=== PATIENT | male | born 1950 | race Caucasian/White ===

== ENCOUNTER 2017-11-04 22:37 | Inpatient (IN) | payer MEDICARE, OTHER ==
[2017-11-04 23:14] LABS: ADD MAN DIFF? NO
[2017-11-04 23:18] LABS: BASOPHILS % 0.5 % (0.0-2.0); EOSINOPHILS # 0.1 10^3/ul (0.0-0.5); EOSINOPHILS % 1.1 % (0.0-7.0); HEMATOCRIT 41.3 % (42.0-52.0); HEMOGLOBIN 12.3 g/dl (14.0-18.0); LYMPHOCYTES # 1.4 10^3/ul (0.8-2.9); LYMPHOCYTES % 16.5 % (15.0-51.0); MEAN CORPUSCULAR HEMOGLOBIN 26.5 pg (29.0-33.0); MEAN CORPUSCULAR HGB CONC 29.8 g/dl (32.0-37.0); MEAN CORPUSCULAR VOLUME 88.8 fl (82.0-101.0); MONOCYTE # 0.7 10^3/ul (0.3-0.9); MONOCYTES % 8.3 % (0.0-11.0); NEUTROPHIL # 6.1 10^3/ul (1.6-7.5); NEUTROPHILS % 72.9 % (39.0-77.0); PLATELET COUNT 150 10^3/UL (140-415); RED BLOOD COUNT 4.65 10^6/ul (4.70-6.10); RED CELL DISTRIBUTION WIDTH 19.9 % (11.5-14.5)
[2017-11-04 23:18] LABS: WHITE BLOOD COUNT 8.3 10^3/ul (4.8-10.8)
[2017-11-04 23:37] LABS: ANION GAP 17 (8-16); BLOOD UREA NITROGEN 40 mg/dl (7-20); CALCIUM 9.1 mg/dl (8.4-10.2); CARBON DIOXIDE 32 mmol/L (21-31); CHLORIDE 102 mmol/L (97-110); CREATININE 1.52 mg/dl (0.61-1.24); GLUCOSE 173 mg/dl (70-220); SODIUM 147 mmol/L (135-144)
[2017-11-04 23:37] LABS: MAGNESIUM 2.1 mg/dl (1.7-2.5)
[2017-11-04 23:43] LABS: AADO2 Arterial 292.7 mmHg (7.0-24.0); Allen Test ACCEPTAB; Arterial Base Excess 2.6 mmol/L (-3.0-3); Arterial Blood Gas Oxygen Sat 97.5 mmHG (95.0-98.0); Arterial COHb 0.3 % (0.0-3.0); Arterial Fraction of Oxyhgb 96.9 % (93.0-99.0); Arterial HCO3 30.2 mmol/L (22.0-26.0); Arterial MetHb 0.3 % (0.0-1.5); Arterial Total Hemglobin 12.5 g/dl (12.0-18.0); Arterial pCO2 60.6 mmhg (35-45); MODE VENT - AC; Site Right Radial
[2017-11-04 23:50] LABS: TROPONIN-I < 0.012 ng/ml (0.00-0.12)
[2017-11-05] MEDS ORDERED: NACL 0.9% 3 ML SYG IV (03:00)
[2017-11-05] MEDS ORDERED: morphine 2 MG INJ IV (03:00)
[2017-11-05] MEDS ORDERED: ACETAMINOPHEN 650MG/20.3ML CUP GTB (03:00)
[2017-11-05] MEDS: DEXTROSE 5%-0.45% NACL 1,000 ML IV (04:09)
[2017-11-05 05:42] LABS: ADD MAN DIFF? NO
[2017-11-05 06:17] LABS: ALANINE AMINOTRANSFERASE 32 IU/L (13-69); ALBUMIN/GLOBULIN RATIO 0.95; ALKALINE PHOSPHATASE 78 IU/L (42-121); ANION GAP 14 (8-16); ASPARTATE AMINO TRANSFERASE 22 IU/L (15-46); BILIRUBIN,INDIRECT 0.3 mg/dl (0-1.1); BILIRUBIN,TOTAL 0.3 mg/dl (0.2-1.3); BLOOD UREA NITROGEN 38 mg/dl (7-20); CALCIUM 8.5 mg/dl (8.4-10.2); CARBON DIOXIDE 34 mmol/L (21-31); CHLORIDE 104 mmol/L (97-110); CHOL/HDL RATIO 4.6 RATIO; CHOLESTEROL 167 mg/dl (100-200); CREATINE KINASE 60 IU/L (23-200); CREATININE 1.28 mg/dl (0.61-1.24); GLUCOSE 117 mg/dl (70-220); HDL CHOLESTEROL 36 mg/dl (30-78); LDL CHOLESTEROL,CALCULATED 113 mg/dl; MAGNESIUM 2.1 mg/dl (1.7-2.5); POTASSIUM 4.1 mmol/L (3.5-5.1); SODIUM 148 mmol/L (135-144); TOTAL PROTEIN 8.2 g/dl (6.1-8.1); TRIGLYCERIDES 89 mg/dl (0-149)
[2017-11-05 06:29] LABS: CK INDEX 2.6; TROPONIN-I 0.027 ng/ml (0.00-0.12)
[2017-11-05 06:31] LABS: CK-MB 1.57 ng/ml (0.0-2.4)
[2017-11-05 07:00] LABS: HEMOGLOBIN A1C 5.3 % (0-5.9); WHITE BLOOD COUNT 6.6 10^3/ul (4.8-10.8)
[2017-11-05 07:00] LABS: ABNORMAL IP MESSAGE 1; BASOPHILS % 0.3 % (0.0-2.0); EOSINOPHILS % 0.3 % (0.0-7.0); HEMATOCRIT 37.3 % (42.0-52.0); HEMOGLOBIN 10.9 g/dl (14.0-18.0); LYMPHOCYTES # 0.9 10^3/ul (0.8-2.9); LYMPHOCYTES % 13.1 % (15.0-51.0); MEAN CORPUSCULAR HEMOGLOBIN 26.1 pg (29.0-33.0); MEAN CORPUSCULAR HGB CONC 29.2 g/dl (32.0-37.0); MEAN CORPUSCULAR VOLUME 89.4 fl (82.0-101.0); MONOCYTE # 0.5 10^3/ul (0.3-0.9); MONOCYTES % 7.3 % (0.0-11.0); NEUTROPHIL # 5.2 10^3/ul (1.6-7.5); NEUTROPHILS % 78.4 % (39.0-77.0); PLATELET COUNT 143 10^3/UL (140-415); POSITIVE DIFF @See below; RED BLOOD COUNT 4.17 10^6/ul (4.70-6.10); RED CELL DISTRIBUTION WIDTH 19.9 % (11.5-14.5)
[2017-11-05] MEDS: SUCRALFATE (100 MG/ML) 10ML CUP GTB ×4 (07:00→21:18)
[2017-11-05] MEDS: LANSOPRAZOLE 30 MG CAP GTB (07:34)
[2017-11-05] MEDS: FUROSEMIDE 40 MG TAB GTB (07:34)
[2017-11-05] MEDS: SERTRALINE 100 MG TAB GTB (09:41)
[2017-11-05] MEDS: NAPROXEN 500 MG TAB GTB ×2 (09:41→22:51)
[2017-11-05] MEDS: GABAPENTIN 300 MG CAP GTB ×3 (09:41→21:18)
[2017-11-05] MEDS: OLANZAPINE 5 MG TAB GTB (09:41)
[2017-11-05] MEDS: DILTIAZEM (SR) 60 MG CAP PO (09:42)
[2017-11-05] MEDS: ASCORBIC ACID 500 MG TAB GTB (09:42)
[2017-11-05] MEDS: AMIODARONE 200 MG TAB GTB ×2 (09:42→21:19)
[2017-11-05 10:08] LABS: FREE T4 (FREE THYROXINE) 1.63 ng/dl (0.78-2.44); T4 (THYROXINE) 7.7 ug/dl (5.5-11.0)
[2017-11-05] MEDS: ASPIRIN (EC) 81 MG TAB PO (10:24)
[2017-11-05] MEDS: LACTULOSE 30ML CUP GTB ×2 (10:28→21:18)
[2017-11-05] MEDS: ENOXAPARIN 40 MG/0.4 ML SYG SC (10:28)
[2017-11-05] MEDS: BISACODYL (EC) 5 MG TAB PO (10:28)
[2017-11-05 11:19] LABS: CREATINE KINASE 72 IU/L (23-200)
[2017-11-05 11:37] LABS: CK INDEX 2.9; TROPONIN-I 0.015 ng/ml (0.00-0.12)
[2017-11-05 17:22] LABS: ANION GAP 14 (8-16); BLOOD UREA NITROGEN 34 mg/dl (7-20); CALCIUM 8.5 mg/dl (8.4-10.2); CARBON DIOXIDE 33 mmol/L (21-31); CHLORIDE 104 mmol/L (97-110); CREATININE 1.18 mg/dl (0.61-1.24); GLUCOSE 119 mg/dl (70-220); POTASSIUM 4.1 mmol/L (3.5-5.1); SODIUM 147 mmol/L (135-144)
[2017-11-05] MEDS: traMADol 50 MG TAB GTB (21:44)
[2017-11-06 05:49] LABS: ADD MAN DIFF? NO
[2017-11-06 05:54] LABS: WHITE BLOOD COUNT 5.2 10^3/ul (4.8-10.8)
[2017-11-06 05:54] LABS: ABNORMAL IP MESSAGE 1; BASOPHILS % 0.6 % (0.0-2.0); EOSINOPHILS # 0.2 10^3/ul (0.0-0.5); EOSINOPHILS % 3.3 % (0.0-7.0); HEMATOCRIT 37.5 % (42.0-52.0); LYMPHOCYTES # 0.6 10^3/ul (0.8-2.9); MEAN CORPUSCULAR HEMOGLOBIN 26.5 pg (29.0-33.0); MEAN CORPUSCULAR HGB CONC 29.3 g/dl (32.0-37.0); MEAN CORPUSCULAR VOLUME 90.4 fl (82.0-101.0); MONOCYTE # 0.5 10^3/ul (0.3-0.9); MONOCYTES % 8.9 % (0.0-11.0); NEUTROPHIL # 3.9 10^3/ul (1.6-7.5); NEUTROPHILS % 75.8 % (39.0-77.0); PLATELET COUNT 118 10^3/UL (140-415); POSITIVE DIFF @See below; RED BLOOD COUNT 4.15 10^6/ul (4.70-6.10); RED CELL DISTRIBUTION WIDTH 19.8 % (11.5-14.5)
[2017-11-06 06:19] LABS: ANION GAP 14 (8-16); BLOOD UREA NITROGEN 34 mg/dl (7-20); CALCIUM 8.4 mg/dl (8.4-10.2); CARBON DIOXIDE 34 mmol/L (21-31); CHLORIDE 103 mmol/L (97-110); CREATININE 1.16 mg/dl (0.61-1.24); GLUCOSE 110 mg/dl (70-220); MAGNESIUM 2.1 mg/dl (1.7-2.5); PHOSPHORUS 4.4 mg/dl (2.5-4.9); POTASSIUM 3.8 mmol/L (3.5-5.1); SODIUM 147 mmol/L (135-144)
[2017-11-06] MEDS: FUROSEMIDE 40 MG TAB GTB (06:24)
[2017-11-06] MEDS: GABAPENTIN 300 MG CAP GTB ×3 (08:26→21:05)
[2017-11-06] MEDS: ASPIRIN (EC) 81 MG TAB PO (08:27)
[2017-11-06] MEDS: NAPROXEN 500 MG TAB GTB ×2 (08:27→21:07)
[2017-11-06] MEDS: OLANZAPINE 5 MG TAB GTB (08:27)
[2017-11-06] MEDS: LANSOPRAZOLE 30 MG CAP GTB (08:28)
[2017-11-06] MEDS: DILTIAZEM (SR) 60 MG CAP PO (08:28)
[2017-11-06] MEDS: LACTULOSE 30ML CUP GTB ×2 (08:29→21:00)
[2017-11-06] MEDS: BISACODYL (EC) 5 MG TAB PO (08:29)
[2017-11-06] MEDS: SUCRALFATE (100 MG/ML) 10ML CUP GTB ×4 (08:29→21:05)
[2017-11-06] MEDS: ASCORBIC ACID 500 MG TAB GTB (08:29)
[2017-11-06] MEDS: AMIODARONE 200 MG TAB GTB ×2 (08:29→21:06)
[2017-11-06] MEDS: SERTRALINE 100 MG TAB GTB (08:29)
[2017-11-06] MEDS: ENOXAPARIN 40 MG/0.4 ML SYG SC (08:37)
[2017-11-06] MEDS: ALBUTEROL HFA 8 GM INHALER INH ×4 (09:00→20:22)
[2017-11-06] MEDS: IPRATROPIUM (HFA) 12.9 GM INHALER INH ×4 (09:00→20:21)
[2017-11-07] MEDS: IPRATROPIUM (HFA) 12.9 GM INHALER INH ×6 (01:29→20:09)
[2017-11-07] MEDS: ALBUTEROL HFA 8 GM INHALER INH ×6 (01:29→20:09)
[2017-11-07] MEDS: LACTULOSE 30ML CUP GTB ×2 (09:00→21:00)
[2017-11-07] MEDS: BISACODYL (EC) 5 MG TAB PO (09:00)
[2017-11-07] MEDS: SUCRALFATE (100 MG/ML) 10ML CUP GTB ×4 (11:00→21:06)
[2017-11-07] MEDS: LANSOPRAZOLE 30 MG CAP GTB (11:00)
[2017-11-07] MEDS: ASCORBIC ACID 500 MG TAB GTB (11:01)
[2017-11-07] MEDS: GABAPENTIN 300 MG CAP GTB ×3 (11:01→21:04)
[2017-11-07] MEDS: OLANZAPINE 5 MG TAB GTB (11:02)
[2017-11-07] MEDS: DILTIAZEM (SR) 60 MG CAP PO (11:02)
[2017-11-07] MEDS: SERTRALINE 100 MG TAB GTB (11:02)
[2017-11-07] MEDS: AMIODARONE 200 MG TAB GTB ×2 (11:02→21:05)
[2017-11-07] MEDS: ASPIRIN (EC) 81 MG TAB PO (11:03)
[2017-11-07] MEDS: FUROSEMIDE 40 MG TAB GTB ×2 (11:03→11:21)
[2017-11-07] MEDS: NAPROXEN 500 MG TAB GTB ×2 (11:03→21:05)
[2017-11-07] MEDS: ENOXAPARIN 40 MG/0.4 ML SYG SC (11:10)
[2017-11-07] MEDS: NA PHOSPHATE/BIPHOS 133 ML ENEMA PR (11:11)
[2017-11-07] MEDS: NYSTATIN 30 GM POWDER BTL TOP ×2 (11:55→21:04)
[2017-11-07] MEDS: traMADol 50 MG TAB GTB (23:21)
[2017-11-08] MEDS: IPRATROPIUM (HFA) 12.9 GM INHALER INH ×6 (01:18→20:02)
[2017-11-08] MEDS: ALBUTEROL HFA 8 GM INHALER INH ×6 (01:18→20:02)
[2017-11-08] MEDS: SUCRALFATE (100 MG/ML) 10ML CUP GTB ×4 (06:07→21:34)
[2017-11-08] MEDS: FUROSEMIDE 40 MG TAB GTB (06:08)
[2017-11-08] MEDS: LANSOPRAZOLE 30 MG CAP GTB (06:08)
[2017-11-08] MEDS: LACTULOSE 30ML CUP GTB ×2 (09:00→21:00)
[2017-11-08] MEDS: BISACODYL (EC) 5 MG TAB PO (09:00)
[2017-11-08] MEDS: ENOXAPARIN 40 MG/0.4 ML SYG SC (09:00)
[2017-11-08] MEDS: SERTRALINE 100 MG TAB GTB (09:15)
[2017-11-08] MEDS: GABAPENTIN 300 MG CAP GTB ×3 (09:15→21:35)
[2017-11-08] MEDS: ASCORBIC ACID 500 MG TAB GTB (09:16)
[2017-11-08] MEDS: NAPROXEN 500 MG TAB GTB ×2 (09:16→21:35)
[2017-11-08] MEDS: ASPIRIN (EC) 81 MG TAB PO (09:16)
[2017-11-08] MEDS: AMIODARONE 200 MG TAB GTB ×2 (09:16→21:36)
[2017-11-08] MEDS: OLANZAPINE 5 MG TAB GTB (09:16)
[2017-11-08] MEDS: DILTIAZEM (SR) 60 MG CAP PO (09:16)
[2017-11-08] MEDS: NYSTATIN 30 GM POWDER BTL TOP ×2 (09:17→21:38)
[2017-11-08] MEDS: LORAZEPAM 2 MG INJ IV (21:35)
[2017-11-09] MEDS: IPRATROPIUM (HFA) 12.9 GM INHALER INH ×6 (01:34→20:45)
[2017-11-09] MEDS: ALBUTEROL HFA 8 GM INHALER INH ×6 (01:35→20:44)
[2017-11-09 05:54] LABS: ADD MAN DIFF? NO
[2017-11-09 06:11] LABS: ABNORMAL IP MESSAGE 1; BASOPHILS % 0.2 % (0.0-2.0); EOSINOPHILS # 0.2 10^3/ul (0.0-0.5); EOSINOPHILS % 1.7 % (0.0-7.0); HEMATOCRIT 37.5 % (42.0-52.0); HEMOGLOBIN 11.1 g/dl (14.0-18.0); LYMPHOCYTES # 0.5 10^3/ul (0.8-2.9); LYMPHOCYTES % 5.3 % (15.0-51.0); MEAN CORPUSCULAR HGB CONC 29.6 g/dl (32.0-37.0); MEAN CORPUSCULAR VOLUME 91.2 fl (82.0-101.0); MONOCYTE # 0.6 10^3/ul (0.3-0.9); MONOCYTES % 6.5 % (0.0-11.0); NEUTROPHIL # 7.5 10^3/ul (1.6-7.5); NEUTROPHILS % 86.1 % (39.0-77.0); PLATELET COUNT 114 10^3/UL (140-415); POSITIVE DIFF @See below; RED BLOOD COUNT 4.11 10^6/ul (4.70-6.10); RED CELL DISTRIBUTION WIDTH 19.4 % (11.5-14.5)
[2017-11-09 06:11] LABS: WHITE BLOOD COUNT 8.7 10^3/ul (4.8-10.8)
[2017-11-09] MEDS: LANSOPRAZOLE 30 MG CAP GTB (06:22)
[2017-11-09] MEDS: SUCRALFATE (100 MG/ML) 10ML CUP GTB ×4 (06:22→20:19)
[2017-11-09] MEDS: FUROSEMIDE 40 MG TAB GTB (06:22)
[2017-11-09 06:26] LABS: ANION GAP 13 (8-16); BLOOD UREA NITROGEN 33 mg/dl (7-20); CALCIUM 8.5 mg/dl (8.4-10.2); CARBON DIOXIDE 37 mmol/L (21-31); CHLORIDE 102 mmol/L (97-110); CREATININE 1.19 mg/dl (0.61-1.24); GLUCOSE 142 mg/dl (70-220); SODIUM 148 mmol/L (135-144)
[2017-11-09] MEDS: traMADol 50 MG TAB GTB (06:29)
[2017-11-09] MEDS: ENOXAPARIN 40 MG/0.4 ML SYG SC (09:00)
[2017-11-09] MEDS: LACTULOSE 30ML CUP GTB ×2 (09:00→20:21)
[2017-11-09] MEDS: BISACODYL (EC) 5 MG TAB PO (09:00)
[2017-11-09] MEDS: AMIODARONE 200 MG TAB GTB ×2 (09:12→20:18)
[2017-11-09] MEDS: NAPROXEN 500 MG TAB GTB ×2 (09:12→20:17)
[2017-11-09] MEDS: ASCORBIC ACID 500 MG TAB GTB (09:13)
[2017-11-09] MEDS: GABAPENTIN 300 MG CAP GTB ×3 (09:13→20:17)
[2017-11-09] MEDS: ASPIRIN (EC) 81 MG TAB PO (09:13)
[2017-11-09] MEDS: DILTIAZEM (SR) 60 MG CAP PO (09:13)
[2017-11-09] MEDS: SERTRALINE 100 MG TAB GTB (09:13)
[2017-11-09] MEDS: OLANZAPINE 5 MG TAB GTB (09:13)
[2017-11-09] MEDS: NYSTATIN 30 GM POWDER BTL TOP ×2 (09:14→20:17)
[2017-11-09] MEDS: NA PHOSPHATE/BIPHOS 133 ML ENEMA PR (13:23)
[2017-11-10] MEDS: traMADol 50 MG TAB GTB ×2 (00:07→18:28)
[2017-11-10] MEDS: ALBUTEROL HFA 8 GM INHALER INH ×6 (00:22→19:50)
[2017-11-10] MEDS: IPRATROPIUM (HFA) 12.9 GM INHALER INH ×6 (00:23→19:51)
[2017-11-10] MEDS: FUROSEMIDE 40 MG TAB GTB (06:11)
[2017-11-10] MEDS: SUCRALFATE (100 MG/ML) 10ML CUP GTB ×4 (06:11→21:36)
[2017-11-10] MEDS: LANSOPRAZOLE 30 MG CAP GTB (06:12)
[2017-11-10] MEDS: ENOXAPARIN 40 MG/0.4 ML SYG SC (09:00)
[2017-11-10] MEDS: LACTULOSE 30ML CUP GTB ×2 (09:00→21:00)
[2017-11-10] MEDS: BISACODYL (EC) 5 MG TAB PO (09:00)
[2017-11-10] MEDS: NAPROXEN 500 MG TAB GTB ×2 (09:20→21:35)
[2017-11-10] MEDS: OLANZAPINE 5 MG TAB GTB (09:20)
[2017-11-10] MEDS: ASCORBIC ACID 500 MG TAB GTB (09:20)
[2017-11-10] MEDS: DILTIAZEM (SR) 60 MG CAP PO (09:21)
[2017-11-10] MEDS: SERTRALINE 100 MG TAB GTB (09:21)
[2017-11-10] MEDS: ASPIRIN (EC) 81 MG TAB PO (09:21)
[2017-11-10] MEDS: AMIODARONE 200 MG TAB GTB ×2 (09:21→21:40)
[2017-11-10] MEDS: GABAPENTIN 300 MG CAP GTB ×3 (09:21→21:35)
[2017-11-10] MEDS: NYSTATIN 30 GM POWDER BTL TOP ×2 (09:22→21:41)
[2017-11-10 12:12] LABS: ADD MAN DIFF? NO
[2017-11-10 12:21] LABS: WHITE BLOOD COUNT 5.3 10^3/ul (4.8-10.8)
[2017-11-10 12:21] LABS: ABNORMAL IP MESSAGE 1; BASOPHILS % 0.6 % (0.0-2.0); EOSINOPHILS # 0.2 10^3/ul (0.0-0.5); EOSINOPHILS % 3.4 % (0.0-7.0); HEMATOCRIT 41.5 % (42.0-52.0); HEMOGLOBIN 12.1 g/dl (14.0-18.0); LYMPHOCYTES # 0.6 10^3/ul (0.8-2.9); LYMPHOCYTES % 11.7 % (15.0-51.0); MEAN CORPUSCULAR HEMOGLOBIN 27.1 pg (29.0-33.0); MEAN CORPUSCULAR HGB CONC 29.2 g/dl (32.0-37.0); MONOCYTE # 0.4 10^3/ul (0.3-0.9); MONOCYTES % 6.6 % (0.0-11.0); NEUTROPHIL # 4.1 10^3/ul (1.6-7.5); NEUTROPHILS % 77.1 % (39.0-77.0); PLATELET COUNT 120 10^3/UL (140-415); POSITIVE DIFF @See below; RED BLOOD COUNT 4.46 10^6/ul (4.70-6.10); RED CELL DISTRIBUTION WIDTH 19.3 % (11.5-14.5)
[2017-11-10 12:39] LABS: ALANINE AMINOTRANSFERASE 24 IU/L (13-69); ALBUMIN 3.8 g/dl (3.3-4.9); ALBUMIN/GLOBULIN RATIO 0.74; ALKALINE PHOSPHATASE 92 IU/L (42-121); ASPARTATE AMINO TRANSFERASE 38 IU/L (15-46); BILIRUBIN,INDIRECT 0.6 mg/dl (0-1.1); BILIRUBIN,TOTAL 0.6 mg/dl (0.2-1.3); BLOOD UREA NITROGEN 32 mg/dl (7-20); CALCIUM 8.5 mg/dl (8.4-10.2); CARBON DIOXIDE 30 mmol/L (21-31); GLUCOSE 146 mg/dl (70-220); TOTAL PROTEIN 8.9 g/dl (6.1-8.1)
[2017-11-10 13:28] LABS: ANION GAP 24 (8-16)
[2017-11-10 13:29] LABS: CHLORIDE 99 mmol/L (97-110); POTASSIUM 3.8 mmol/L (3.5-5.1); SODIUM 149 mmol/L (135-144)
[2017-11-11] MEDS: ALBUTEROL HFA 8 GM INHALER INH ×6 (00:32→21:03)
[2017-11-11] MEDS: IPRATROPIUM (HFA) 12.9 GM INHALER INH ×6 (00:32→21:03)
[2017-11-11 05:19] LABS: ADD MAN DIFF? NO
[2017-11-11 05:23] LABS: BASOPHILS % 0.5 % (0.0-2.0); EOSINOPHILS # 0.2 10^3/ul (0.0-0.5); EOSINOPHILS % 2.9 % (0.0-7.0); HEMATOCRIT 38.6 % (42.0-52.0); HEMOGLOBIN 11.3 g/dl (14.0-18.0); LYMPHOCYTES # 0.9 10^3/ul (0.8-2.9); LYMPHOCYTES % 12.9 % (15.0-51.0); MEAN CORPUSCULAR HGB CONC 29.3 g/dl (32.0-37.0); MEAN CORPUSCULAR VOLUME 92.3 fl (82.0-101.0); MONOCYTE # 0.5 10^3/ul (0.3-0.9); MONOCYTES % 7.7 % (0.0-11.0); NEUTROPHILS % 75.7 % (39.0-77.0); PLATELET COUNT 118 10^3/UL (140-415); RED BLOOD COUNT 4.18 10^6/ul (4.70-6.10); RED CELL DISTRIBUTION WIDTH 19.2 % (11.5-14.5)
[2017-11-11 05:23] LABS: WHITE BLOOD COUNT 6.6 10^3/ul (4.8-10.8)
[2017-11-11 06:00] LABS: ANION GAP 14 (8-16); BLOOD UREA NITROGEN 35 mg/dl (7-20); CALCIUM 8.6 mg/dl (8.4-10.2); CARBON DIOXIDE 37 mmol/L (21-31); CHLORIDE 101 mmol/L (97-110); CREATININE 1.11 mg/dl (0.61-1.24); GLUCOSE 118 mg/dl (70-220); POTASSIUM 4.1 mmol/L (3.5-5.1); SODIUM 148 mmol/L (135-144)
[2017-11-11] MEDS: FUROSEMIDE 40 MG TAB GTB (06:45)
[2017-11-11] MEDS: LANSOPRAZOLE 30 MG CAP GTB (08:09)
[2017-11-11] MEDS: SUCRALFATE (100 MG/ML) 10ML CUP GTB ×4 (08:09→20:33)
[2017-11-11] MEDS: LACTULOSE 30ML CUP GTB ×2 (09:00→20:36)
[2017-11-11] MEDS: BISACODYL (EC) 5 MG TAB PO (09:00)
[2017-11-11] MEDS: OLANZAPINE 5 MG TAB GTB (09:07)
[2017-11-11] MEDS: ASCORBIC ACID 500 MG TAB GTB (09:07)
[2017-11-11] MEDS: NAPROXEN 500 MG TAB GTB ×2 (09:07→20:30)
[2017-11-11] MEDS: ASPIRIN (EC) 81 MG TAB PO (09:07)
[2017-11-11] MEDS: AMIODARONE 200 MG TAB GTB ×2 (09:08→20:33)
[2017-11-11] MEDS: SERTRALINE 100 MG TAB GTB (09:08)
[2017-11-11] MEDS: DILTIAZEM (SR) 60 MG CAP PO (09:09)
[2017-11-11] MEDS: NYSTATIN 30 GM POWDER BTL TOP (09:11)
[2017-11-11] MEDS: GABAPENTIN 300 MG CAP GTB ×3 (09:12→20:29)
[2017-11-11] MEDS: ENOXAPARIN 40 MG/0.4 ML SYG SC (09:13)
[2017-11-11] MEDS: DEXTROSE 5% 1,000 ML IV (09:30)
[2017-11-12] MEDS: LORAZEPAM 1 MG TAB PO (00:12)
[2017-11-12] MEDS: IPRATROPIUM (HFA) 12.9 GM INHALER INH ×6 (01:03→20:29)
[2017-11-12] MEDS: ALBUTEROL HFA 8 GM INHALER INH ×6 (01:04→20:29)
[2017-11-12] MEDS: traMADol 50 MG TAB GTB (05:41)
[2017-11-12] MEDS: NYSTATIN 30 GM POWDER BTL TOP ×3 (06:45→22:22)
[2017-11-12] MEDS: FUROSEMIDE 40 MG TAB GTB (06:46)
[2017-11-12 08:26] LABS: ADD MAN DIFF? NO
[2017-11-12] MEDS: ASPIRIN (EC) 81 MG TAB PO (08:32)
[2017-11-12] MEDS: SUCRALFATE (100 MG/ML) 10ML CUP GTB ×4 (08:32→22:13)
[2017-11-12] MEDS: SERTRALINE 100 MG TAB GTB (08:32)
[2017-11-12] MEDS: NAPROXEN 500 MG TAB GTB ×2 (08:32→22:14)
[2017-11-12 08:34] LABS: WHITE BLOOD COUNT 3.5 10^3/ul (4.8-10.8)
[2017-11-12 08:34] LABS: ABNORMAL IP MESSAGE 1; BASOPHILS % 0.6 % (0.0-2.0); EOSINOPHILS # 0.2 10^3/ul (0.0-0.5); EOSINOPHILS % 4.6 % (0.0-7.0); HEMATOCRIT 35.3 % (42.0-52.0); HEMOGLOBIN 10.3 g/dl (14.0-18.0); LYMPHOCYTES # 0.4 10^3/ul (0.8-2.9); LYMPHOCYTES % 12.3 % (15.0-51.0); MEAN CORPUSCULAR HEMOGLOBIN 26.7 pg (29.0-33.0); MEAN CORPUSCULAR HGB CONC 29.2 g/dl (32.0-37.0); MEAN CORPUSCULAR VOLUME 91.5 fl (82.0-101.0); MONOCYTE # 0.3 10^3/ul (0.3-0.9); MONOCYTES % 8.6 % (0.0-11.0); NEUTROPHIL # 2.6 10^3/ul (1.6-7.5); NEUTROPHILS % 73.6 % (39.0-77.0); PLATELET COUNT 115 10^3/UL (140-415); POSITIVE DIFF @See below; RED BLOOD COUNT 3.86 10^6/ul (4.70-6.10)
[2017-11-12] MEDS: AMIODARONE 200 MG TAB GTB ×2 (08:34→22:17)
[2017-11-12] MEDS: GABAPENTIN 300 MG CAP GTB ×3 (08:43→22:14)
[2017-11-12] MEDS: LANSOPRAZOLE 30 MG CAP GTB (08:43)
[2017-11-12] MEDS: DILTIAZEM (SR) 60 MG CAP PO (08:44)
[2017-11-12] MEDS: OLANZAPINE 5 MG TAB GTB (08:45)
[2017-11-12] MEDS: ASCORBIC ACID 500 MG TAB GTB (08:45)
[2017-11-12 08:49] LABS: ANION GAP 11 (8-16); BLOOD UREA NITROGEN 33 mg/dl (7-20); CALCIUM 8.4 mg/dl (8.4-10.2); CHLORIDE 100 mmol/L (97-110); CREATININE 1.21 mg/dl (0.61-1.24); GLUCOSE 131 mg/dl (70-220); POTASSIUM 3.8 mmol/L (3.5-5.1); SODIUM 147 mmol/L (135-144)
[2017-11-12 08:58] LABS: CARBON DIOXIDE 40 mmol/L (21-31)
[2017-11-12] MEDS: ENOXAPARIN 40 MG/0.4 ML SYG SC (08:59)
[2017-11-12] MEDS: LACTULOSE 30ML CUP GTB ×2 (09:00→21:00)
[2017-11-12] MEDS: BISACODYL (EC) 5 MG TAB PO (09:00)
[2017-11-13] MEDS: LORAZEPAM 1 MG TAB PO ×2 (00:41→22:08)
[2017-11-13] MEDS: IPRATROPIUM (HFA) 12.9 GM INHALER INH ×6 (01:32→20:41)
[2017-11-13] MEDS: ALBUTEROL HFA 8 GM INHALER INH ×6 (01:33→20:42)
[2017-11-13 06:14] LABS: ADD MAN DIFF? NO
[2017-11-13 06:25] LABS: ABNORMAL IP MESSAGE 1; BASOPHILS % 0.8 % (0.0-2.0); EOSINOPHILS # 0.2 10^3/ul (0.0-0.5); EOSINOPHILS % 4.5 % (0.0-7.0); HEMATOCRIT 34.9 % (42.0-52.0); HEMOGLOBIN 10.2 g/dl (14.0-18.0); LYMPHOCYTES # 0.7 10^3/ul (0.8-2.9); LYMPHOCYTES % 17.1 % (15.0-51.0); MEAN CORPUSCULAR HEMOGLOBIN 26.8 pg (29.0-33.0); MEAN CORPUSCULAR HGB CONC 29.2 g/dl (32.0-37.0); MEAN CORPUSCULAR VOLUME 91.6 fl (82.0-101.0); MONOCYTE # 0.4 10^3/ul (0.3-0.9); MONOCYTES % 9.3 % (0.0-11.0); NEUTROPHIL # 2.7 10^3/ul (1.6-7.5); PLATELET COUNT 117 10^3/UL (140-415); POSITIVE DIFF @See below; RED BLOOD COUNT 3.81 10^6/ul (4.70-6.10); RED CELL DISTRIBUTION WIDTH 19.2 % (11.5-14.5)
[2017-11-13] MEDS: LANSOPRAZOLE 30 MG CAP GTB (06:25)
[2017-11-13] MEDS: SUCRALFATE (100 MG/ML) 10ML CUP GTB ×5 (06:25→20:10)
[2017-11-13] MEDS: FUROSEMIDE 40 MG TAB GTB (06:25)
[2017-11-13 06:46] LABS: ANION GAP 12 (8-16); BLOOD UREA NITROGEN 34 mg/dl (7-20); CALCIUM 8.3 mg/dl (8.4-10.2); CARBON DIOXIDE 39 mmol/L (21-31); CHLORIDE 100 mmol/L (97-110); CREATININE 1.13 mg/dl (0.61-1.24); GLUCOSE 118 mg/dl (70-220); POTASSIUM 3.6 mmol/L (3.5-5.1); SODIUM 147 mmol/L (135-144)
[2017-11-13] MEDS: NYSTATIN 30 GM POWDER BTL TOP ×2 (08:49→22:05)
[2017-11-13] MEDS: OLANZAPINE 5 MG TAB GTB (08:52)
[2017-11-13] MEDS: GABAPENTIN 300 MG CAP GTB ×3 (08:53→20:10)
[2017-11-13] MEDS: AMIODARONE 200 MG TAB GTB ×2 (08:53→20:11)
[2017-11-13] MEDS: ASPIRIN (EC) 81 MG TAB PO (08:53)
[2017-11-13] MEDS: NAPROXEN 500 MG TAB GTB ×2 (08:53→20:10)
[2017-11-13] MEDS: DILTIAZEM (SR) 60 MG CAP PO (08:53)
[2017-11-13] MEDS: ASCORBIC ACID 500 MG TAB GTB (08:54)
[2017-11-13] MEDS: LACTULOSE 30ML CUP GTB ×2 (08:55→20:11)
[2017-11-13] MEDS: BISACODYL (EC) 5 MG TAB PO (08:56)
[2017-11-13] MEDS: ENOXAPARIN 40 MG/0.4 ML SYG SC (09:02)
[2017-11-13] MEDS: SERTRALINE 100 MG TAB GTB (12:08)
[2017-11-13] MEDS: NA PHOSPHATE/BIPHOS 133 ML ENEMA PR (13:27)
[2017-11-14] MEDS: IPRATROPIUM (HFA) 12.9 GM INHALER INH ×6 (01:43→20:01)
[2017-11-14] MEDS: ALBUTEROL HFA 8 GM INHALER INH ×6 (01:43→20:01)
[2017-11-14] MEDS: FUROSEMIDE 40 MG TAB GTB (05:38)
[2017-11-14] MEDS: SUCRALFATE (100 MG/ML) 10ML CUP GTB ×5 (06:40→21:00)
[2017-11-14] MEDS: LANSOPRAZOLE 30 MG CAP GTB (06:40)
[2017-11-14 07:19] LABS: ADD MAN DIFF? NO
[2017-11-14 07:23] LABS: ABNORMAL IP MESSAGE 1; BASOPHILS % 0.5 % (0.0-2.0); EOSINOPHILS # 0.2 10^3/ul (0.0-0.5); EOSINOPHILS % 3.5 % (0.0-7.0); HEMATOCRIT 35.5 % (42.0-52.0); HEMOGLOBIN 10.4 g/dl (14.0-18.0); LYMPHOCYTES # 0.6 10^3/ul (0.8-2.9); LYMPHOCYTES % 13.5 % (15.0-51.0); MEAN CORPUSCULAR HEMOGLOBIN 26.9 pg (29.0-33.0); MEAN CORPUSCULAR HGB CONC 29.3 g/dl (32.0-37.0); MONOCYTE # 0.3 10^3/ul (0.3-0.9); MONOCYTES % 7.5 % (0.0-11.0); NEUTROPHIL # 3.2 10^3/ul (1.6-7.5); NEUTROPHILS % 74.5 % (39.0-77.0); PLATELET COUNT 111 10^3/UL (140-415); POSITIVE DIFF @See below; RED BLOOD COUNT 3.86 10^6/ul (4.70-6.10); RED CELL DISTRIBUTION WIDTH 19.4 % (11.5-14.5)
[2017-11-14 07:23] LABS: WHITE BLOOD COUNT 4.3 10^3/ul (4.8-10.8)
[2017-11-14] MEDS: BISACODYL (EC) 5 MG TAB PO (08:07)
[2017-11-14] MEDS: LACTULOSE 30ML CUP GTB ×2 (08:07→21:00)
[2017-11-14 08:15] LABS: ANION GAP 14 (8-16); BLOOD UREA NITROGEN 34 mg/dl (7-20); CALCIUM 8.4 mg/dl (8.4-10.2); CARBON DIOXIDE 36 mmol/L (21-31); CHLORIDE 101 mmol/L (97-110); CREATININE 1.09 mg/dl (0.61-1.24); GLUCOSE 122 mg/dl (70-220); POTASSIUM 3.8 mmol/L (3.5-5.1); SODIUM 147 mmol/L (135-144)
[2017-11-14] MEDS: SERTRALINE 100 MG TAB GTB (08:55)
[2017-11-14] MEDS: ASCORBIC ACID 500 MG TAB GTB (08:55)
[2017-11-14] MEDS: OLANZAPINE 5 MG TAB GTB (08:55)
[2017-11-14] MEDS: GABAPENTIN 300 MG CAP GTB ×3 (08:56→21:22)
[2017-11-14] MEDS: DILTIAZEM (SR) 60 MG CAP PO (08:56)
[2017-11-14] MEDS: ASPIRIN (EC) 81 MG TAB PO (08:56)
[2017-11-14] MEDS: NYSTATIN 30 GM POWDER BTL TOP ×2 (08:56→21:23)
[2017-11-14] MEDS: NAPROXEN 500 MG TAB GTB ×2 (08:56→21:23)
[2017-11-14] MEDS: AMIODARONE 200 MG TAB GTB ×2 (08:57→21:22)
[2017-11-14] MEDS: ENOXAPARIN 40 MG/0.4 ML SYG SC (08:58)
[2017-11-15] MEDS: LORAZEPAM 1 MG TAB PO (00:37)
[2017-11-15] MEDS: IPRATROPIUM (HFA) 12.9 GM INHALER INH ×6 (01:05→20:47)
[2017-11-15] MEDS: ALBUTEROL HFA 8 GM INHALER INH ×6 (01:05→20:47)
[2017-11-15] MEDS: FUROSEMIDE 40 MG TAB GTB (05:38)
[2017-11-15] MEDS: SUCRALFATE (100 MG/ML) 10ML CUP GTB ×4 (08:12→20:38)
[2017-11-15] MEDS: LANSOPRAZOLE 30 MG CAP GTB (08:12)
[2017-11-15] MEDS: LACTULOSE 30ML CUP GTB ×2 (09:00→20:38)
[2017-11-15] MEDS: BISACODYL (EC) 5 MG TAB PO (09:00)
[2017-11-15] MEDS: ENOXAPARIN 40 MG/0.4 ML SYG SC ×2 (09:00→17:37)
[2017-11-15] MEDS: NA PHOSPHATE/BIPHOS 133 ML ENEMA PR (09:37)
[2017-11-15] MEDS: DILTIAZEM (SR) 60 MG CAP PO (10:08)
[2017-11-15] MEDS: ASPIRIN (EC) 81 MG TAB PO (10:08)
[2017-11-15] MEDS: AMIODARONE 200 MG TAB GTB ×2 (10:09→20:43)
[2017-11-15] MEDS: ASCORBIC ACID 500 MG TAB GTB (10:09)
[2017-11-15] MEDS: SERTRALINE 100 MG TAB GTB (10:09)
[2017-11-15] MEDS: NAPROXEN 500 MG TAB GTB ×2 (10:09→20:38)
[2017-11-15] MEDS: NYSTATIN 30 GM POWDER BTL TOP ×2 (10:23→20:52)
[2017-11-15] MEDS: GABAPENTIN 300 MG CAP GTB ×3 (10:28→20:38)
[2017-11-15] MEDS: OLANZAPINE 5 MG TAB GTB (10:32)
[2017-11-15] MEDS: traMADol 50 MG TAB GTB (14:18)
[2017-11-15] MEDS: DILTIAZEM (CD) 120 MG CAP PO (14:19)
[2017-11-15 15:56] LABS: ADD MAN DIFF? NO
[2017-11-15 15:59] LABS: ABNORMAL IP MESSAGE 1; BASOPHILS % 0.6 % (0.0-2.0); EOSINOPHILS # 0.2 10^3/ul (0.0-0.5); EOSINOPHILS % 3.1 % (0.0-7.0); HEMATOCRIT 38.4 % (42.0-52.0); HEMOGLOBIN 11.3 g/dl (14.0-18.0); LYMPHOCYTES # 0.6 10^3/ul (0.8-2.9); LYMPHOCYTES % 13.1 % (15.0-51.0); MEAN CORPUSCULAR HEMOGLOBIN 27.1 pg (29.0-33.0); MEAN CORPUSCULAR HGB CONC 29.4 g/dl (32.0-37.0); MEAN CORPUSCULAR VOLUME 92.1 fl (82.0-101.0); MEAN PLATELET VOLUME 12.8 fl (7.4-10.4); MONOCYTE # 0.4 10^3/ul (0.3-0.9); MONOCYTES % 7.2 % (0.0-11.0); NEUTROPHIL # 3.7 10^3/ul (1.6-7.5); NEUTROPHILS % 75.4 % (39.0-77.0); PLATELET COUNT 125 10^3/UL (140-415); POSITIVE DIFF @See below; RED BLOOD COUNT 4.17 10^6/ul (4.70-6.10); RED CELL DISTRIBUTION WIDTH 19.2 % (11.5-14.5)
[2017-11-15 15:59] LABS: WHITE BLOOD COUNT 4.9 10^3/ul (4.8-10.8)
[2017-11-15] MEDS: ACETAMINOPHEN 325 MG TAB PO (16:00)
[2017-11-15 16:28] LABS: ANION GAP 15 (8-16); BLOOD UREA NITROGEN 33 mg/dl (7-20); CALCIUM 8.7 mg/dl (8.4-10.2); CARBON DIOXIDE 36 mmol/L (21-31); CHLORIDE 101 mmol/L (97-110); CREATININE 1.21 mg/dl (0.61-1.24); GLUCOSE 132 mg/dl (70-220); POTASSIUM 4.2 mmol/L (3.5-5.1); SODIUM 148 mmol/L (135-144)
[2017-11-15] MEDS: traMADol 50 MG TAB PO (18:13)
[2017-11-16] MEDS: ALBUTEROL HFA 8 GM INHALER INH ×7 (01:03→21:43)
[2017-11-16] MEDS: IPRATROPIUM (HFA) 12.9 GM INHALER INH ×7 (01:03→21:43)
[2017-11-16] MEDS: FUROSEMIDE 40 MG TAB GTB (05:11)
[2017-11-16] MEDS: ACETAMINOPHEN 325 MG TAB PO ×2 (05:11→21:13)
[2017-11-16 06:07] LABS: ADD MAN DIFF? NO
[2017-11-16 06:52] LABS: ANION GAP 14 (8-16); BLOOD UREA NITROGEN 36 mg/dl (7-20); CALCIUM 8.4 mg/dl (8.4-10.2); CARBON DIOXIDE 31 mmol/L (21-31); CHLORIDE 104 mmol/L (97-110); GLUCOSE 128 mg/dl (70-220); SODIUM 145 mmol/L (135-144)
[2017-11-16 07:13] LABS: ABNORMAL IP MESSAGE 1; BASOPHILS % 0.8 % (0.0-2.0); EOSINOPHILS # 0.2 10^3/ul (0.0-0.5); EOSINOPHILS % 4.9 % (0.0-7.0); HEMOGLOBIN 10.4 g/dl (14.0-18.0); LYMPHOCYTES # 0.7 10^3/ul (0.8-2.9); LYMPHOCYTES % 18.8 % (15.0-51.0); MEAN CORPUSCULAR HEMOGLOBIN 26.7 pg (29.0-33.0); MEAN CORPUSCULAR HGB CONC 28.9 g/dl (32.0-37.0); MEAN CORPUSCULAR VOLUME 92.5 fl (82.0-101.0); MONOCYTE # 0.4 10^3/ul (0.3-0.9); MONOCYTES % 10.6 % (0.0-11.0); NEUTROPHIL # 2.4 10^3/ul (1.6-7.5); NEUTROPHILS % 64.1 % (39.0-77.0); PLATELET COUNT 104 10^3/UL (140-415); POSITIVE DIFF @See below; RED BLOOD COUNT 3.89 10^6/ul (4.70-6.10); RED CELL DISTRIBUTION WIDTH 19.2 % (11.5-14.5)
[2017-11-16 07:13] LABS: WHITE BLOOD COUNT 3.7 10^3/ul (4.8-10.8)
[2017-11-16] MEDS: SUCRALFATE (100 MG/ML) 10ML CUP GTB ×4 (07:25→21:16)
[2017-11-16] MEDS: GABAPENTIN 300 MG CAP GTB ×3 (08:48→21:16)
[2017-11-16] MEDS: DILTIAZEM (CD) 120 MG CAP PO (08:48)
[2017-11-16] MEDS: ASCORBIC ACID 500 MG TAB GTB (08:48)
[2017-11-16] MEDS: AMIODARONE 200 MG TAB GTB ×2 (08:49→21:16)
[2017-11-16] MEDS: NAPROXEN 500 MG TAB GTB ×2 (08:49→21:16)
[2017-11-16] MEDS: LANSOPRAZOLE 30 MG CAP GTB (08:49)
[2017-11-16] MEDS: ASPIRIN (EC) 81 MG TAB PO (08:49)
[2017-11-16] MEDS: OLANZAPINE 5 MG TAB GTB (08:49)
[2017-11-16] MEDS: SERTRALINE 100 MG TAB GTB (08:49)
[2017-11-16] MEDS: ENOXAPARIN 40 MG/0.4 ML SYG SC (08:56)
[2017-11-16] MEDS: LACTULOSE 30ML CUP GTB ×2 (08:58→21:00)
[2017-11-16] MEDS: BISACODYL (EC) 5 MG TAB PO (08:59)
[2017-11-16] MEDS: NYSTATIN 30 GM POWDER BTL TOP ×2 (09:12→21:16)
[2017-11-16] MEDS: traMADol 50 MG TAB GTB (10:02)
[2017-11-16] MEDS: DIPHENHYDRAMINE 25 MG CAP PO (16:11)
[2017-11-16] MEDS: LORAZEPAM 1 MG TAB PO (23:32)
[2017-11-17] MEDS: IPRATROPIUM (HFA) 12.9 GM INHALER INH ×6 (01:35→21:13)
[2017-11-17] MEDS: ALBUTEROL HFA 8 GM INHALER INH ×6 (01:35→21:13)
[2017-11-17] MEDS: FUROSEMIDE 40 MG TAB GTB (06:13)
[2017-11-17] MEDS: traMADol 50 MG TAB GTB ×2 (06:35→21:58)
[2017-11-17] MEDS: SUCRALFATE (100 MG/ML) 10ML CUP GTB ×4 (06:40→21:00)
[2017-11-17] MEDS: LANSOPRAZOLE 30 MG CAP GTB (06:40)
[2017-11-17] MEDS: SERTRALINE 100 MG TAB GTB (09:00)
[2017-11-17] MEDS: BISACODYL (EC) 5 MG TAB PO (09:00)
[2017-11-17] MEDS: DILTIAZEM (CD) 120 MG CAP PO (09:00)
[2017-11-17] MEDS: OLANZAPINE 5 MG TAB GTB (09:00)
[2017-11-17] MEDS: LACTULOSE 30ML CUP GTB ×2 (09:00→21:00)
[2017-11-17] MEDS: NAPROXEN 500 MG TAB GTB ×2 (09:00→21:56)
[2017-11-17] MEDS: ASCORBIC ACID 500 MG TAB GTB (09:01)
[2017-11-17] MEDS: AMIODARONE 200 MG TAB GTB ×2 (09:01→21:57)
[2017-11-17] MEDS: GABAPENTIN 300 MG CAP GTB ×3 (09:01→21:57)
[2017-11-17] MEDS: ASPIRIN (EC) 81 MG TAB PO (09:02)
[2017-11-17] MEDS: ENOXAPARIN 40 MG/0.4 ML SYG SC (09:02)
[2017-11-17] MEDS: NYSTATIN 30 GM POWDER BTL TOP ×2 (09:02→21:57)
[2017-11-17] MEDS: NA PHOSPHATE/BIPHOS 133 ML ENEMA PR (15:57)
[2017-11-18] MEDS: LORAZEPAM 1 MG TAB PO (01:05)
[2017-11-18] MEDS: ALBUTEROL HFA 8 GM INHALER INH ×6 (01:23→20:40)
[2017-11-18] MEDS: IPRATROPIUM (HFA) 12.9 GM INHALER INH ×6 (01:23→20:40)
[2017-11-18] MEDS: FUROSEMIDE 40 MG TAB GTB (06:37)
[2017-11-18] MEDS: LANSOPRAZOLE 30 MG CAP GTB (07:25)
[2017-11-18] MEDS: OLANZAPINE 5 MG TAB GTB (08:59)
[2017-11-18] MEDS: ASPIRIN (EC) 81 MG TAB PO (08:59)
[2017-11-18] MEDS: ASCORBIC ACID 500 MG TAB GTB (08:59)
[2017-11-18] MEDS: SERTRALINE 100 MG TAB GTB (08:59)
[2017-11-18] MEDS: SUCRALFATE (100 MG/ML) 10ML CUP GTB ×4 (08:59→21:55)
[2017-11-18] MEDS: NAPROXEN 500 MG TAB GTB ×2 (08:59→21:00)
[2017-11-18] MEDS: GABAPENTIN 300 MG CAP GTB ×3 (08:59→21:58)
[2017-11-18] MEDS: LACTULOSE 30ML CUP GTB ×2 (09:00→21:00)
[2017-11-18] MEDS: DILTIAZEM (CD) 120 MG CAP PO (09:00)
[2017-11-18] MEDS: AMIODARONE 200 MG TAB GTB ×2 (09:00→21:56)
[2017-11-18] MEDS: BISACODYL (EC) 5 MG TAB PO (09:00)
[2017-11-18] MEDS: ENOXAPARIN 40 MG/0.4 ML SYG SC (09:07)
[2017-11-18] MEDS: NYSTATIN 30 GM POWDER BTL TOP ×2 (11:10→21:58)
[2017-11-19] MEDS: IPRATROPIUM (HFA) 12.9 GM INHALER INH ×6 (01:32→17:23)
[2017-11-19] MEDS: ALBUTEROL HFA 8 GM INHALER INH ×6 (01:32→21:29)
[2017-11-19] MEDS: FUROSEMIDE 40 MG TAB GTB (06:07)
[2017-11-19] MEDS: SUCRALFATE (100 MG/ML) 10ML CUP GTB ×4 (07:25→21:00)
[2017-11-19] MEDS: LACTULOSE 30ML CUP GTB ×2 (09:00→21:00)
[2017-11-19] MEDS: BISACODYL (EC) 5 MG TAB PO (09:00)
[2017-11-19] MEDS: DILTIAZEM (CD) 120 MG CAP PO (09:29)
[2017-11-19] MEDS: LANSOPRAZOLE 30 MG CAP GTB (09:30)
[2017-11-19] MEDS: NAPROXEN 500 MG TAB GTB ×2 (09:30→21:18)
[2017-11-19] MEDS: AMIODARONE 200 MG TAB GTB ×2 (09:30→21:18)
[2017-11-19] MEDS: SERTRALINE 100 MG TAB GTB (09:30)
[2017-11-19] MEDS: OLANZAPINE 5 MG TAB GTB (09:30)
[2017-11-19] MEDS: ASCORBIC ACID 500 MG TAB GTB (09:30)
[2017-11-19] MEDS: ASPIRIN (EC) 81 MG TAB PO (09:30)
[2017-11-19] MEDS: GABAPENTIN 300 MG CAP GTB ×3 (09:31→21:18)
[2017-11-19] MEDS: NYSTATIN 30 GM POWDER BTL TOP ×2 (09:32→21:19)
[2017-11-19] MEDS: ENOXAPARIN 40 MG/0.4 ML SYG SC (09:45)
[2017-11-19] MEDS: LORAZEPAM 1 MG TAB PO (10:35)
[2017-11-19] MEDS: NA PHOSPHATE/BIPHOS 133 ML ENEMA PR (16:41)
[2017-11-19] MEDS: DIPHENHYDRAMINE 25 MG CAP PO (21:19)
[2017-11-20] MEDS: ALBUTEROL HFA 8 GM INHALER INH ×7 (01:44→23:32)
[2017-11-20] MEDS: IPRATROPIUM (HFA) 12.9 GM INHALER INH ×7 (01:44→23:33)
[2017-11-20] MEDS: FUROSEMIDE 40 MG TAB GTB (06:39)
[2017-11-20] MEDS: SUCRALFATE (100 MG/ML) 10ML CUP GTB ×4 (06:40→21:08)
[2017-11-20] MEDS: LANSOPRAZOLE 30 MG CAP GTB (06:41)
[2017-11-20] MEDS: ASCORBIC ACID 500 MG TAB GTB (08:50)
[2017-11-20] MEDS: BISACODYL (EC) 5 MG TAB PO (08:51)
[2017-11-20] MEDS: ASPIRIN (EC) 81 MG TAB PO (08:52)
[2017-11-20] MEDS: AMIODARONE 200 MG TAB GTB ×2 (08:52→21:09)
[2017-11-20] MEDS: SERTRALINE 100 MG TAB GTB (08:53)
[2017-11-20] MEDS: NAPROXEN 500 MG TAB GTB ×2 (08:53→21:08)
[2017-11-20] MEDS: OLANZAPINE 5 MG TAB GTB (08:53)
[2017-11-20] MEDS: GABAPENTIN 300 MG CAP GTB ×3 (08:53→21:08)
[2017-11-20] MEDS: NYSTATIN 30 GM POWDER BTL TOP ×2 (08:53→21:09)
[2017-11-20] MEDS: LACTULOSE 30ML CUP GTB ×2 (08:53→21:08)
[2017-11-20] MEDS: ENOXAPARIN 40 MG/0.4 ML SYG SC (08:56)
[2017-11-20] MEDS: DILTIAZEM (CD) 120 MG CAP PO (09:41)
[2017-11-20] MEDS: LORAZEPAM 1 MG TAB PO (19:25)
[2017-11-20] MEDS: traMADol 50 MG TAB GTB (19:28)
[2017-11-21] MEDS: IPRATROPIUM (HFA) 12.9 GM INHALER INH ×5 (05:12→21:12)
[2017-11-21] MEDS: ALBUTEROL HFA 8 GM INHALER INH ×5 (05:12→21:12)
[2017-11-21] MEDS: FUROSEMIDE 40 MG TAB GTB (06:04)
[2017-11-21] MEDS: LANSOPRAZOLE 30 MG CAP GTB (07:25)
[2017-11-21] MEDS: BISACODYL (EC) 5 MG TAB PO (09:00)
[2017-11-21] MEDS: LACTULOSE 30ML CUP GTB ×2 (09:00→21:00)
[2017-11-21] MEDS: NAPROXEN 500 MG TAB GTB ×2 (09:13→21:07)
[2017-11-21] MEDS: DILTIAZEM (CD) 120 MG CAP PO (09:13)
[2017-11-21] MEDS: ASCORBIC ACID 500 MG TAB GTB (09:14)
[2017-11-21] MEDS: AMIODARONE 200 MG TAB GTB ×2 (09:14→21:09)
[2017-11-21] MEDS: OLANZAPINE 5 MG TAB GTB (09:14)
[2017-11-21] MEDS: ASPIRIN (EC) 81 MG TAB PO (09:14)
[2017-11-21] MEDS: SUCRALFATE (100 MG/ML) 10ML CUP GTB ×4 (09:15→21:00)
[2017-11-21] MEDS: GABAPENTIN 300 MG CAP GTB ×3 (09:15→21:07)
[2017-11-21] MEDS: ENOXAPARIN 40 MG/0.4 ML SYG SC (09:16)
[2017-11-21] MEDS: traMADol 50 MG TAB GTB (09:33)
[2017-11-21] MEDS: NYSTATIN 30 GM POWDER BTL TOP ×2 (09:33→21:09)
[2017-11-21] MEDS: SERTRALINE 100 MG TAB GTB (09:33)
[2017-11-21] MEDS: NA PHOSPHATE/BIPHOS 133 ML ENEMA PR (10:40)
[2017-11-21] MEDS: LORAZEPAM 0.5 MG TAB PO (12:28)
[2017-11-22] MEDS: traMADol 50 MG TAB GTB (00:47)
[2017-11-22] MEDS: IPRATROPIUM (HFA) 12.9 GM INHALER INH ×6 (01:02→20:59)
[2017-11-22] MEDS: ALBUTEROL HFA 8 GM INHALER INH ×6 (01:02→20:59)
[2017-11-22] MEDS: SUCRALFATE (100 MG/ML) 10ML CUP GTB ×4 (07:25→21:19)
[2017-11-22] MEDS: LANSOPRAZOLE 30 MG CAP GTB (07:25)
[2017-11-22] MEDS: FUROSEMIDE 40 MG TAB GTB (08:49)
[2017-11-22] MEDS: DILTIAZEM (CD) 120 MG CAP PO (08:51)
[2017-11-22] MEDS: AMIODARONE 200 MG TAB GTB ×2 (08:52→21:16)
[2017-11-22] MEDS: GABAPENTIN 300 MG CAP GTB ×3 (08:52→21:16)
[2017-11-22] MEDS: ASCORBIC ACID 500 MG TAB GTB (08:52)
[2017-11-22] MEDS: OLANZAPINE 5 MG TAB GTB (08:53)
[2017-11-22] MEDS: SERTRALINE 100 MG TAB GTB (08:53)
[2017-11-22] MEDS: ASPIRIN (EC) 81 MG TAB PO (08:53)
[2017-11-22] MEDS: BISACODYL (EC) 5 MG TAB PO (08:55)
[2017-11-22] MEDS: LACTULOSE 30ML CUP GTB ×2 (08:55→21:00)
[2017-11-22] MEDS: NAPROXEN 500 MG TAB GTB ×2 (08:55→21:15)
[2017-11-22] MEDS: NYSTATIN 30 GM POWDER BTL TOP ×2 (08:56→21:19)
[2017-11-22] MEDS: ENOXAPARIN 40 MG/0.4 ML SYG SC (08:59)
[2017-11-23] MEDS: IPRATROPIUM (HFA) 12.9 GM INHALER INH ×6 (01:10→21:04)
[2017-11-23] MEDS: ALBUTEROL HFA 8 GM INHALER INH ×6 (01:11→21:04)
[2017-11-23] MEDS: LORAZEPAM 1 MG TAB PO (03:50)
[2017-11-23] MEDS: SUCRALFATE (100 MG/ML) 10ML CUP GTB ×4 (05:50→21:34)
[2017-11-23] MEDS: FUROSEMIDE 40 MG TAB GTB (05:50)
[2017-11-23] MEDS: LANSOPRAZOLE 30 MG CAP GTB (05:51)
[2017-11-23] MEDS: LACTULOSE 30ML CUP GTB ×2 (09:00→21:00)
[2017-11-23] MEDS: BISACODYL (EC) 5 MG TAB PO (09:00)
[2017-11-23] MEDS: GABAPENTIN 300 MG CAP GTB ×3 (09:08→21:35)
[2017-11-23] MEDS: AMIODARONE 200 MG TAB GTB ×2 (09:08→21:35)
[2017-11-23] MEDS: DILTIAZEM (CD) 120 MG CAP PO (09:09)
[2017-11-23] MEDS: ASPIRIN (EC) 81 MG TAB PO (09:09)
[2017-11-23] MEDS: SERTRALINE 100 MG TAB GTB (09:10)
[2017-11-23] MEDS: NAPROXEN 500 MG TAB GTB ×2 (09:10→21:34)
[2017-11-23] MEDS: OLANZAPINE 5 MG TAB GTB (09:11)
[2017-11-23] MEDS: ASCORBIC ACID 500 MG TAB GTB (09:11)
[2017-11-23] MEDS: NYSTATIN 30 GM POWDER BTL TOP ×2 (09:12→21:34)
[2017-11-23] MEDS: ENOXAPARIN 40 MG/0.4 ML SYG SC (09:30)
[2017-11-23] MEDS: NA PHOSPHATE/BIPHOS 133 ML ENEMA PR (15:30)
[2017-11-24] MEDS: ALBUTEROL HFA 8 GM INHALER INH ×6 (01:18→21:10)
[2017-11-24] MEDS: IPRATROPIUM (HFA) 12.9 GM INHALER INH ×6 (01:19→21:10)
[2017-11-24] MEDS: ACETAMINOPHEN 325 MG TAB PO (04:40)
[2017-11-24] MEDS: FUROSEMIDE 40 MG TAB GTB (06:27)
[2017-11-24] MEDS: BISACODYL (EC) 5 MG TAB PO (08:28)
[2017-11-24] MEDS: LACTULOSE 30ML CUP GTB ×2 (08:28→20:55)
[2017-11-24] MEDS: SUCRALFATE (100 MG/ML) 10ML CUP GTB ×4 (08:28→20:55)
[2017-11-24] MEDS: ASPIRIN (EC) 81 MG TAB PO (08:28)
[2017-11-24] MEDS: DILTIAZEM (CD) 120 MG CAP PO (08:28)
[2017-11-24] MEDS: OLANZAPINE 5 MG TAB GTB (08:29)
[2017-11-24] MEDS: ASCORBIC ACID 500 MG TAB GTB (08:29)
[2017-11-24] MEDS: GABAPENTIN 300 MG CAP GTB ×3 (08:29→20:40)
[2017-11-24] MEDS: NAPROXEN 500 MG TAB GTB ×2 (08:29→20:41)
[2017-11-24] MEDS: SERTRALINE 100 MG TAB GTB (08:29)
[2017-11-24] MEDS: LANSOPRAZOLE 30 MG CAP GTB (08:29)
[2017-11-24] MEDS: AMIODARONE 200 MG TAB GTB ×2 (08:29→20:41)
[2017-11-24] MEDS: ENOXAPARIN 40 MG/0.4 ML SYG SC (08:31)
[2017-11-24] MEDS: NYSTATIN 30 GM POWDER BTL TOP ×2 (08:33→20:42)
[2017-11-24] MEDS: traMADol 50 MG TAB GTB ×2 (09:31→20:41)
[2017-11-25] MEDS: ALBUTEROL HFA 8 GM INHALER INH ×6 (01:06→20:10)
[2017-11-25] MEDS: IPRATROPIUM (HFA) 12.9 GM INHALER INH ×6 (01:06→20:10)
[2017-11-25] MEDS: ACETAMINOPHEN 325 MG TAB PO ×2 (01:57→14:23)
[2017-11-25] MEDS: FUROSEMIDE 40 MG TAB GTB (06:52)
[2017-11-25] MEDS: traMADol 50 MG TAB GTB (06:54)
[2017-11-25] MEDS: SUCRALFATE (100 MG/ML) 10ML CUP GTB ×4 (07:25→21:25)
[2017-11-25] MEDS: SERTRALINE 100 MG TAB GTB (08:37)
[2017-11-25] MEDS: DILTIAZEM (CD) 120 MG CAP PO (08:37)
[2017-11-25] MEDS: ASCORBIC ACID 500 MG TAB GTB (08:38)
[2017-11-25] MEDS: AMIODARONE 200 MG TAB GTB ×2 (08:38→21:24)
[2017-11-25] MEDS: LANSOPRAZOLE 30 MG CAP GTB (08:38)
[2017-11-25] MEDS: BISACODYL (EC) 5 MG TAB PO (08:38)
[2017-11-25] MEDS: NAPROXEN 500 MG TAB GTB ×2 (08:38→21:23)
[2017-11-25] MEDS: GABAPENTIN 300 MG CAP GTB ×3 (08:38→21:23)
[2017-11-25] MEDS: ASPIRIN (EC) 81 MG TAB PO (08:38)
[2017-11-25] MEDS: OLANZAPINE 5 MG TAB GTB (08:38)
[2017-11-25] MEDS: LACTULOSE 30ML CUP GTB ×2 (08:39→21:25)
[2017-11-25] MEDS: ENOXAPARIN 40 MG/0.4 ML SYG SC (08:39)
[2017-11-25] MEDS: NYSTATIN 30 GM POWDER BTL TOP ×2 (08:39→21:25)
[2017-11-25] MEDS: NA PHOSPHATE/BIPHOS 133 ML ENEMA PR (10:49)
[2017-11-26] MEDS: IPRATROPIUM (HFA) 12.9 GM INHALER INH ×7 (01:18→20:31)
[2017-11-26] MEDS: ALBUTEROL HFA 8 GM INHALER INH ×7 (01:18→20:31)
[2017-11-26] MEDS: FUROSEMIDE 40 MG TAB GTB ×2 (05:46→10:02)
[2017-11-26] MEDS: traMADol 50 MG TAB GTB (06:19)
[2017-11-26] MEDS: SUCRALFATE (100 MG/ML) 10ML CUP GTB ×4 (07:25→21:11)
[2017-11-26] MEDS: LACTULOSE 30ML CUP GTB ×2 (09:00→21:00)
[2017-11-26] MEDS: ENOXAPARIN 40 MG/0.4 ML SYG SC (09:00)
[2017-11-26] MEDS: NAPROXEN 500 MG TAB GTB ×2 (10:01→21:14)
[2017-11-26] MEDS: BISACODYL (EC) 5 MG TAB PO (10:01)
[2017-11-26] MEDS: OLANZAPINE 5 MG TAB GTB (10:01)
[2017-11-26] MEDS: AMIODARONE 200 MG TAB GTB ×2 (10:02→21:15)
[2017-11-26] MEDS: GABAPENTIN 300 MG CAP GTB ×3 (10:02→21:15)
[2017-11-26] MEDS: ASCORBIC ACID 500 MG TAB GTB (10:02)
[2017-11-26] MEDS: SERTRALINE 100 MG TAB GTB (10:02)
[2017-11-26] MEDS: LANSOPRAZOLE 30 MG CAP GTB (10:02)
[2017-11-26] MEDS: ASPIRIN (EC) 81 MG TAB PO (10:02)
[2017-11-26] MEDS: DILTIAZEM (CD) 120 MG CAP PO (10:03)
[2017-11-26] MEDS: NYSTATIN 30 GM POWDER BTL TOP ×2 (10:04→21:10)
[2017-11-27] MEDS: ALBUTEROL HFA 8 GM INHALER INH ×6 (01:28→21:00)
[2017-11-27] MEDS: IPRATROPIUM (HFA) 12.9 GM INHALER INH ×6 (01:29→21:00)
[2017-11-27] MEDS: NYSTATIN 30 GM POWDER BTL TOP ×2 (05:05→21:08)
[2017-11-27] MEDS: traMADol 50 MG TAB GTB (05:07)
[2017-11-27] MEDS: FUROSEMIDE 40 MG TAB GTB (06:31)
[2017-11-27] MEDS: LANSOPRAZOLE 30 MG CAP GTB (06:32)
[2017-11-27] MEDS: SUCRALFATE (100 MG/ML) 10ML CUP GTB ×5 (06:32→21:00)
[2017-11-27] MEDS: ACETAMINOPHEN 325 MG TAB PO (07:03)
[2017-11-27 07:15] LABS: ADD MAN DIFF? NO
[2017-11-27 07:23] LABS: WHITE BLOOD COUNT 4.3 10^3/ul (4.8-10.8)
[2017-11-27 07:23] LABS: ABNORMAL IP MESSAGE 1; BASOPHILS % 0.7 % (0.0-2.0); EOSINOPHILS # 0.2 10^3/ul (0.0-0.5); EOSINOPHILS % 4.2 % (0.0-7.0); HEMATOCRIT 34.4 % (42.0-52.0); HEMOGLOBIN 10.1 g/dl (14.0-18.0); LYMPHOCYTES # 0.7 10^3/ul (0.8-2.9); LYMPHOCYTES % 15.9 % (15.0-51.0); MEAN CORPUSCULAR HEMOGLOBIN 27.2 pg (29.0-33.0); MEAN CORPUSCULAR HGB CONC 29.4 g/dl (32.0-37.0); MEAN CORPUSCULAR VOLUME 92.5 fl (82.0-101.0); MONOCYTE # 0.3 10^3/ul (0.3-0.9); MONOCYTES % 7.6 % (0.0-11.0); NEUTROPHIL # 3.1 10^3/ul (1.6-7.5); NEUTROPHILS % 70.9 % (39.0-77.0); PLATELET COUNT 123 10^3/UL (140-415); POSITIVE DIFF @See below; RED BLOOD COUNT 3.72 10^6/ul (4.70-6.10); RED CELL DISTRIBUTION WIDTH 19.2 % (11.5-14.5)
[2017-11-27 07:45] LABS: BLOOD UREA NITROGEN 37 mg/dl (7-20); CALCIUM 8.3 mg/dl (8.4-10.2); CHLORIDE 99 mmol/L (97-110); CREATININE 1.22 mg/dl (0.61-1.24); GLUCOSE 174 mg/dl (70-220); MAGNESIUM 2.1 mg/dl (1.7-2.5); PHOSPHORUS 3.8 mg/dl (2.5-4.9); POTASSIUM 3.7 mmol/L (3.5-5.1); SODIUM 149 mmol/L (135-144)
[2017-11-27 08:02] LABS: ANION GAP 14 (8-16)
[2017-11-27 08:12] LABS: CARBON DIOXIDE 40 mmol/L (21-31)
[2017-11-27] MEDS: LACTULOSE 30ML CUP GTB ×2 (09:00→21:00)
[2017-11-27] MEDS: BISACODYL (EC) 5 MG TAB PO (09:00)
[2017-11-27] MEDS: ENOXAPARIN 40 MG/0.4 ML SYG SC (09:00)
[2017-11-27] MEDS: DILTIAZEM (CD) 120 MG CAP PO (09:01)
[2017-11-27] MEDS: GABAPENTIN 300 MG CAP GTB ×3 (09:02→21:07)
[2017-11-27] MEDS: ASCORBIC ACID 500 MG TAB GTB (09:02)
[2017-11-27] MEDS: AMIODARONE 200 MG TAB GTB ×2 (09:02→21:10)
[2017-11-27] MEDS: OLANZAPINE 5 MG TAB GTB (09:02)
[2017-11-27] MEDS: NAPROXEN 500 MG TAB GTB ×2 (09:03→21:07)
[2017-11-27] MEDS: ASPIRIN (EC) 81 MG TAB PO (09:03)
[2017-11-27] MEDS: SERTRALINE 100 MG TAB GTB (09:03)
[2017-11-27] MEDS: NA PHOSPHATE/BIPHOS 133 ML ENEMA PR (14:32)
[2017-11-28] MEDS: IPRATROPIUM (HFA) 12.9 GM INHALER INH ×6 (01:43→19:58)
[2017-11-28] MEDS: ALBUTEROL HFA 8 GM INHALER INH ×6 (01:43→19:58)
[2017-11-28] MEDS: SUCRALFATE (100 MG/ML) 10ML CUP GTB ×4 (06:44→22:27)
[2017-11-28] MEDS: FUROSEMIDE 40 MG TAB GTB (06:45)
[2017-11-28] MEDS: LANSOPRAZOLE 30 MG CAP GTB (06:45)
[2017-11-28] MEDS: ACETAMINOPHEN 325 MG TAB PO (06:47)
[2017-11-28] MEDS: NYSTATIN 30 GM POWDER BTL TOP ×2 (08:31→22:01)
[2017-11-28] MEDS: NAPROXEN 500 MG TAB GTB ×2 (08:31→21:58)
[2017-11-28] MEDS: GABAPENTIN 300 MG CAP GTB ×3 (08:31→21:58)
[2017-11-28] MEDS: OLANZAPINE 5 MG TAB GTB (08:31)
[2017-11-28] MEDS: ASCORBIC ACID 500 MG TAB GTB (08:31)
[2017-11-28] MEDS: DILTIAZEM (CD) 120 MG CAP PO (08:31)
[2017-11-28] MEDS: AMIODARONE 200 MG TAB GTB ×2 (08:31→22:01)
[2017-11-28] MEDS: SERTRALINE 100 MG TAB GTB (08:31)
[2017-11-28] MEDS: BISACODYL (EC) 5 MG TAB PO (08:31)
[2017-11-28] MEDS: LACTULOSE 30ML CUP GTB ×2 (08:32→22:27)
[2017-11-28] MEDS: ASPIRIN (EC) 81 MG TAB PO (08:32)
[2017-11-28] MEDS: ENOXAPARIN 40 MG/0.4 ML SYG SC (08:35)
[2017-11-28 09:14] LABS: ADD MAN DIFF? NO
[2017-11-28 09:18] LABS: WHITE BLOOD COUNT 4.1 10^3/ul (4.8-10.8)
[2017-11-28 09:18] LABS: ABNORMAL IP MESSAGE 1; BASOPHILS % 0.5 % (0.0-2.0); EOSINOPHILS # 0.1 10^3/ul (0.0-0.5); EOSINOPHILS % 3.4 % (0.0-7.0); HEMATOCRIT 33.7 % (42.0-52.0); HEMOGLOBIN 9.5 g/dl (14.0-18.0); LYMPHOCYTES # 0.6 10^3/ul (0.8-2.9); LYMPHOCYTES % 14.5 % (15.0-51.0); MEAN CORPUSCULAR HEMOGLOBIN 26.5 pg (29.0-33.0); MEAN CORPUSCULAR HGB CONC 28.2 g/dl (32.0-37.0); MEAN CORPUSCULAR VOLUME 93.9 fl (82.0-101.0); MONOCYTE # 0.4 10^3/ul (0.3-0.9); MONOCYTES % 9.1 % (0.0-11.0); NEUTROPHIL # 2.9 10^3/ul (1.6-7.5); PLATELET COUNT 130 10^3/UL (140-415); POSITIVE DIFF @See below; RED BLOOD COUNT 3.59 10^6/ul (4.70-6.10); RED CELL DISTRIBUTION WIDTH 19.4 % (11.5-14.5)
[2017-11-28 09:42] LABS: ANION GAP 13 (8-16); BLOOD UREA NITROGEN 37 mg/dl (7-20); CHLORIDE 98 mmol/L (97-110); CREATININE 1.19 mg/dl (0.61-1.24); GLUCOSE 141 mg/dl (70-220); POTASSIUM 3.8 mmol/L (3.5-5.1); SODIUM 147 mmol/L (135-144)
[2017-11-28 09:43] LABS: CARBON DIOXIDE 40 mmol/L (21-31); MAGNESIUM 2.1 mg/dl (1.7-2.5)
[2017-11-28 09:43] LABS: PHOSPHORUS 3.8 mg/dl (2.5-4.9)
[2017-11-28] MEDS: FUROSEMIDE 40 MG INJ IV (17:10)
[2017-11-28] MEDS: traMADol 50 MG TAB GTB (23:55)
[2017-11-29] MEDS: ALBUTEROL HFA 8 GM INHALER INH ×4 (00:51→21:06)
[2017-11-29] MEDS: IPRATROPIUM (HFA) 12.9 GM INHALER INH ×4 (00:51→21:06)
[2017-11-29] MEDS: FUROSEMIDE 40 MG INJ IV ×2 (06:20→17:35)
[2017-11-29] MEDS: NYSTATIN 30 GM POWDER BTL TOP ×2 (08:10→19:53)
[2017-11-29] MEDS: BISACODYL (EC) 5 MG TAB PO (08:11)
[2017-11-29] MEDS: SERTRALINE 100 MG TAB GTB (08:11)
[2017-11-29] MEDS: LANSOPRAZOLE 30 MG CAP GTB (08:11)
[2017-11-29] MEDS: GABAPENTIN 300 MG CAP GTB ×3 (08:11→19:44)
[2017-11-29] MEDS: SUCRALFATE (100 MG/ML) 10ML CUP GTB ×4 (08:11→19:53)
[2017-11-29] MEDS: AMIODARONE 200 MG TAB GTB ×2 (08:11→19:44)
[2017-11-29] MEDS: NAPROXEN 500 MG TAB GTB ×2 (08:11→19:44)
[2017-11-29] MEDS: ASPIRIN (EC) 81 MG TAB PO (08:11)
[2017-11-29] MEDS: OLANZAPINE 5 MG TAB GTB (08:11)
[2017-11-29] MEDS: ASCORBIC ACID 500 MG TAB GTB (08:11)
[2017-11-29] MEDS: DILTIAZEM (CD) 120 MG CAP PO (08:12)
[2017-11-29] MEDS: LACTULOSE 30ML CUP GTB ×2 (08:12→19:53)
[2017-11-29] MEDS: ENOXAPARIN 40 MG/0.4 ML SYG SC (08:18)
[2017-11-29] MEDS: traMADol 50 MG TAB GTB (16:37)
[2017-11-30] MEDS: ALBUTEROL HFA 8 GM INHALER INH ×6 (01:02→21:05)
[2017-11-30] MEDS: IPRATROPIUM (HFA) 12.9 GM INHALER INH ×6 (01:02→21:04)
[2017-11-30] MEDS: FUROSEMIDE 40 MG INJ IV ×2 (07:07→18:05)
[2017-11-30] MEDS: AMIODARONE 200 MG TAB GTB ×2 (08:49→21:21)
[2017-11-30] MEDS: DILTIAZEM (CD) 120 MG CAP PO (08:49)
[2017-11-30] MEDS: ASPIRIN (EC) 81 MG TAB PO (08:50)
[2017-11-30] MEDS: SERTRALINE 100 MG TAB GTB (08:50)
[2017-11-30] MEDS: OLANZAPINE 5 MG TAB GTB (08:50)
[2017-11-30] MEDS: GABAPENTIN 300 MG CAP GTB ×3 (08:50→21:21)
[2017-11-30] MEDS: SUCRALFATE (100 MG/ML) 10ML CUP GTB ×4 (08:51→21:00)
[2017-11-30] MEDS: ASCORBIC ACID 500 MG TAB GTB (08:51)
[2017-11-30] MEDS: NAPROXEN 500 MG TAB GTB ×2 (08:51→21:21)
[2017-11-30] MEDS: NYSTATIN 30 GM POWDER BTL TOP ×2 (08:52→21:21)
[2017-11-30] MEDS: LACTULOSE 30ML CUP GTB ×2 (08:52→21:00)
[2017-11-30] MEDS: LANSOPRAZOLE 30 MG CAP GTB (08:52)
[2017-11-30] MEDS: BISACODYL (EC) 5 MG TAB PO (08:52)
[2017-11-30] MEDS: ENOXAPARIN 40 MG/0.4 ML SYG SC (08:57)
[2017-11-30] MEDS: traMADol 50 MG TAB GTB ×2 (10:35→21:21)
[2017-11-30] MEDS: NA PHOSPHATE/BIPHOS 133 ML ENEMA PR (14:22)
[2017-11-30 16:09] LABS: ADD MAN DIFF? NO
[2017-11-30 16:11] LABS: ABNORMAL IP MESSAGE 1; BASOPHILS % 0.4 % (0.0-2.0); EOSINOPHILS # 0.2 10^3/ul (0.0-0.5); EOSINOPHILS % 3.6 % (0.0-7.0); HEMATOCRIT 34.8 % (42.0-52.0); LYMPHOCYTES # 0.6 10^3/ul (0.8-2.9); LYMPHOCYTES % 12.2 % (15.0-51.0); MEAN CORPUSCULAR HEMOGLOBIN 27.2 pg (29.0-33.0); MEAN CORPUSCULAR HGB CONC 28.7 g/dl (32.0-37.0); MEAN CORPUSCULAR VOLUME 94.8 fl (82.0-101.0); MONOCYTE # 0.4 10^3/ul (0.3-0.9); MONOCYTES % 8.2 % (0.0-11.0); NEUTROPHIL # 3.6 10^3/ul (1.6-7.5); PLATELET COUNT 132 10^3/UL (140-415); POSITIVE DIFF @See below; RED BLOOD COUNT 3.67 10^6/ul (4.70-6.10); RED CELL DISTRIBUTION WIDTH 19.2 % (11.5-14.5)
[2017-11-30 16:11] LABS: WHITE BLOOD COUNT 4.8 10^3/ul (4.8-10.8)
[2017-11-30 16:31] LABS: ALANINE AMINOTRANSFERASE 52 IU/L (13-69); ALBUMIN 3.3 g/dl (3.3-4.9); ALBUMIN/GLOBULIN RATIO 0.75; ALKALINE PHOSPHATASE 99 IU/L (42-121); ASPARTATE AMINO TRANSFERASE 36 IU/L (15-46); BILIRUBIN,INDIRECT 0.4 mg/dl (0-1.1); BILIRUBIN,TOTAL 0.4 mg/dl (0.2-1.3); BLOOD UREA NITROGEN 36 mg/dl (7-20); CALCIUM 7.9 mg/dl (8.4-10.2); CHLORIDE 98 mmol/L (97-110); GLUCOSE 134 mg/dl (70-220); POTASSIUM 3.8 mmol/L (3.5-5.1); SODIUM 148 mmol/L (135-144); TOTAL PROTEIN 7.7 g/dl (6.1-8.1)
[2017-11-30 16:32] LABS: ANION GAP 14 (8-16)
[2017-11-30 16:42] LABS: CARBON DIOXIDE 48 mmol/L (21-31)
[2017-12-01] MEDS: ALBUTEROL HFA 8 GM INHALER INH ×6 (01:01→20:52)
[2017-12-01] MEDS: IPRATROPIUM (HFA) 12.9 GM INHALER INH ×6 (01:01→20:53)
[2017-12-01] MEDS: ACETAMINOPHEN 325 MG TAB PO ×2 (03:23→18:27)
[2017-12-01] MEDS: FUROSEMIDE 40 MG INJ IV (06:18)
[2017-12-01] MEDS: BISACODYL (EC) 5 MG TAB PO (07:33)
[2017-12-01] MEDS: LACTULOSE 30ML CUP GTB ×2 (07:34→21:00)
[2017-12-01 08:11] LABS: ADD MAN DIFF? NO
[2017-12-01 08:16] LABS: ABNORMAL IP MESSAGE 1; BASOPHILS % 0.6 % (0.0-2.0); EOSINOPHILS # 0.2 10^3/ul (0.0-0.5); EOSINOPHILS % 3.7 % (0.0-7.0); HEMATOCRIT 33.4 % (42.0-52.0); HEMOGLOBIN 9.6 g/dl (14.0-18.0); LYMPHOCYTES # 0.6 10^3/ul (0.8-2.9); LYMPHOCYTES % 13.8 % (15.0-51.0); MEAN CORPUSCULAR HEMOGLOBIN 27.2 pg (29.0-33.0); MEAN CORPUSCULAR HGB CONC 28.7 g/dl (32.0-37.0); MEAN CORPUSCULAR VOLUME 94.6 fl (82.0-101.0); MONOCYTE # 0.4 10^3/ul (0.3-0.9); MONOCYTES % 8.2 % (0.0-11.0); NEUTROPHIL # 3.4 10^3/ul (1.6-7.5); NEUTROPHILS % 73.3 % (39.0-77.0); PLATELET COUNT 118 10^3/UL (140-415); POSITIVE DIFF @See below; RED BLOOD COUNT 3.53 10^6/ul (4.70-6.10)
[2017-12-01 08:16] LABS: WHITE BLOOD COUNT 4.6 10^3/ul (4.8-10.8)
[2017-12-01] MEDS: GABAPENTIN 300 MG CAP GTB ×3 (08:23→21:09)
[2017-12-01] MEDS: SUCRALFATE (100 MG/ML) 10ML CUP GTB ×5 (08:23→21:00)
[2017-12-01] MEDS: OLANZAPINE 5 MG TAB GTB (08:24)
[2017-12-01] MEDS: LANSOPRAZOLE 30 MG CAP GTB (08:24)
[2017-12-01] MEDS: SERTRALINE 100 MG TAB GTB (08:24)
[2017-12-01] MEDS: ASCORBIC ACID 500 MG TAB GTB (08:24)
[2017-12-01] MEDS: DILTIAZEM (CD) 120 MG CAP PO (08:24)
[2017-12-01] MEDS: NAPROXEN 500 MG TAB GTB ×2 (08:25→23:43)
[2017-12-01] MEDS: ASPIRIN (EC) 81 MG TAB PO (08:25)
[2017-12-01] MEDS: ENOXAPARIN 40 MG/0.4 ML SYG SC (08:34)
[2017-12-01 08:36] LABS: ALANINE AMINOTRANSFERASE 54 IU/L (13-69); ALBUMIN 3.3 g/dl (3.3-4.9); ALBUMIN/GLOBULIN RATIO 0.84; ALKALINE PHOSPHATASE 96 IU/L (42-121); ASPARTATE AMINO TRANSFERASE 36 IU/L (15-46); BILIRUBIN,INDIRECT 0.5 mg/dl (0-1.1); BILIRUBIN,TOTAL 0.5 mg/dl (0.2-1.3); BLOOD UREA NITROGEN 33 mg/dl (7-20); CALCIUM 7.9 mg/dl (8.4-10.2); CHLORIDE 96 mmol/L (97-110); CREATININE 1.19 mg/dl (0.61-1.24); GLUCOSE 119 mg/dl (70-220); POTASSIUM 3.4 mmol/L (3.5-5.1); SODIUM 147 mmol/L (135-144); TOTAL PROTEIN 7.2 g/dl (6.1-8.1)
[2017-12-01] MEDS: AMIODARONE 200 MG TAB GTB ×2 (08:40→21:11)
[2017-12-01 08:43] LABS: ANION GAP 9 (8-16)
[2017-12-01 08:45] LABS: CARBON DIOXIDE 45 mmol/L (21-31)
[2017-12-01] MEDS: NYSTATIN 30 GM POWDER BTL TOP ×2 (08:48→21:09)
[2017-12-01] MEDS: POTASSIUM CHLORIDE 20 MEQ POWDER FOR ORAL SOLN PO ×2 (09:46→09:48)
[2017-12-01] MEDS: ACETAZOLAMIDE 500 MG INJ IV (10:27)
[2017-12-01] MEDS: POTASSIUM CHLORIDE (SR) 20 MEQ TAB PO (10:33)
[2017-12-01] MEDS: traMADol 50 MG TAB GTB ×2 (11:26→21:07)
[2017-12-01 16:16] LABS: AADO2 Arterial 323.3 mmHg (7.0-24.0); Allen Test ACCEPTAB; Arterial Base Excess 8.7 mmol/L (-3.0-3); Arterial Blood Gas Oxygen Sat 88.8 mmHG (95.0-98.0); Arterial COHb 1.8 % (0.0-3.0); Arterial Fraction of Oxyhgb 86.9 % (93.0-99.0); Arterial MetHb 0.3 % (0.0-1.5); Arterial Total Hemglobin 10.3 g/dl (12.0-18.0); Arterial pCO2 75.2 mmhg (35-45); MODE VENT - AC; Site Left Radial
[2017-12-01] MEDS: FUROSEMIDE 20 MG INJ IV (18:02)
[2017-12-02] MEDS: ALBUTEROL HFA 8 GM INHALER INH ×5 (01:29→20:26)
[2017-12-02] MEDS: IPRATROPIUM (HFA) 12.9 GM INHALER INH ×5 (01:29→20:25)
[2017-12-02] MEDS: ACETAMINOPHEN 325 MG TAB PO (04:33)
[2017-12-02] MEDS: FUROSEMIDE 20 MG INJ IV (06:10)
[2017-12-02] MEDS: LANSOPRAZOLE 30 MG CAP GTB (07:25)
[2017-12-02] MEDS: SUCRALFATE (100 MG/ML) 10ML CUP GTB ×4 (08:07→20:48)
[2017-12-02] MEDS: OLANZAPINE 5 MG TAB GTB (08:07)
[2017-12-02] MEDS: NAPROXEN 500 MG TAB GTB ×2 (08:07→20:48)
[2017-12-02] MEDS: ASCORBIC ACID 500 MG TAB GTB (08:08)
[2017-12-02] MEDS: GABAPENTIN 300 MG CAP GTB ×3 (08:08→20:48)
[2017-12-02] MEDS: ASPIRIN (EC) 81 MG TAB PO (08:08)
[2017-12-02] MEDS: BISACODYL (EC) 5 MG TAB PO (08:08)
[2017-12-02] MEDS: DILTIAZEM (CD) 120 MG CAP PO (08:08)
[2017-12-02] MEDS: SERTRALINE 100 MG TAB GTB (08:09)
[2017-12-02] MEDS: AMIODARONE 200 MG TAB GTB ×2 (08:09→22:42)
[2017-12-02] MEDS: LACTULOSE 30ML CUP GTB ×2 (08:09→20:52)
[2017-12-02] MEDS: NYSTATIN 30 GM POWDER BTL TOP ×2 (08:11→21:00)
[2017-12-02] MEDS: ENOXAPARIN 40 MG/0.4 ML SYG SC (08:14)
[2017-12-02 09:24] LABS: ADD MAN DIFF? NO
[2017-12-02 09:27] LABS: WHITE BLOOD COUNT 4.1 10^3/ul (4.8-10.8)
[2017-12-02 09:27] LABS: ABNORMAL IP MESSAGE 1; BASOPHILS % 0.7 % (0.0-2.0); EOSINOPHILS # 0.2 10^3/ul (0.0-0.5); EOSINOPHILS % 5.6 % (0.0-7.0); HEMATOCRIT 31.6 % (42.0-52.0); HEMOGLOBIN 9.1 g/dl (14.0-18.0); LYMPHOCYTES # 0.6 10^3/ul (0.8-2.9); LYMPHOCYTES % 15.1 % (15.0-51.0); MEAN CORPUSCULAR HEMOGLOBIN 27.4 pg (29.0-33.0); MEAN CORPUSCULAR HGB CONC 28.8 g/dl (32.0-37.0); MEAN CORPUSCULAR VOLUME 95.2 fl (82.0-101.0); MONOCYTE # 0.4 10^3/ul (0.3-0.9); MONOCYTES % 8.8 % (0.0-11.0); NEUTROPHIL # 2.8 10^3/ul (1.6-7.5); NEUTROPHILS % 68.6 % (39.0-77.0); NUCLEATED RED BLOOD CELLS% 0.5 /100WBC (0.0-0.0); PLATELET COUNT 117 10^3/UL (140-415); POSITIVE DIFF @See below; RED BLOOD COUNT 3.32 10^6/ul (4.70-6.10); RED CELL DISTRIBUTION WIDTH 19.6 % (11.5-14.5)
[2017-12-02 09:44] LABS: ALANINE AMINOTRANSFERASE 49 IU/L (13-69); ALBUMIN 3.4 g/dl (3.3-4.9); ALBUMIN/GLOBULIN RATIO 0.85; ALKALINE PHOSPHATASE 95 IU/L (42-121); ASPARTATE AMINO TRANSFERASE 32 IU/L (15-46); BILIRUBIN,INDIRECT 0.4 mg/dl (0-1.1); BILIRUBIN,TOTAL 0.4 mg/dl (0.2-1.3); BLOOD UREA NITROGEN 33 mg/dl (7-20); CALCIUM 7.8 mg/dl (8.4-10.2); CHLORIDE 95 mmol/L (97-110); CREATININE 1.58 mg/dl (0.61-1.24); GLUCOSE 149 mg/dl (70-220); POTASSIUM 3.4 mmol/L (3.5-5.1); SODIUM 146 mmol/L (135-144); TOTAL PROTEIN 7.4 g/dl (6.1-8.1)
[2017-12-02 09:53] LABS: ANION GAP 12 (8-16); CARBON DIOXIDE 42 mmol/L (21-31)
[2017-12-02] MEDS: LORAZEPAM 1 MG TAB PO (12:25)
[2017-12-02] MEDS: NA PHOSPHATE/BIPHOS 133 ML ENEMA PR (15:56)
[2017-12-03] MEDS: IPRATROPIUM (HFA) 12.9 GM INHALER INH ×6 (01:16→20:42)
[2017-12-03] MEDS: ALBUTEROL HFA 8 GM INHALER INH ×6 (01:16→20:42)
[2017-12-03] MEDS: traMADol 50 MG TAB GTB ×2 (05:43→14:04)
[2017-12-03] MEDS: SUCRALFATE (100 MG/ML) 10ML CUP GTB ×5 (07:21→21:04)
[2017-12-03] MEDS: LANSOPRAZOLE 30 MG CAP GTB (07:21)
[2017-12-03] MEDS: GABAPENTIN 300 MG CAP GTB ×3 (08:22→21:04)
[2017-12-03] MEDS: ASPIRIN (EC) 81 MG TAB PO (08:22)
[2017-12-03] MEDS: ASCORBIC ACID 500 MG TAB GTB (08:22)
[2017-12-03] MEDS: BISACODYL (EC) 5 MG TAB PO (08:22)
[2017-12-03] MEDS: AMIODARONE 200 MG TAB GTB ×2 (08:22→21:06)
[2017-12-03] MEDS: OLANZAPINE 5 MG TAB GTB (08:22)
[2017-12-03] MEDS: NAPROXEN 500 MG TAB GTB ×2 (08:23→21:04)
[2017-12-03] MEDS: SERTRALINE 100 MG TAB GTB (08:23)
[2017-12-03] MEDS: DILTIAZEM (CD) 120 MG CAP PO (08:23)
[2017-12-03] MEDS: LACTULOSE 30ML CUP GTB ×3 (08:23→21:05)
[2017-12-03] MEDS: NYSTATIN 30 GM POWDER BTL TOP ×2 (08:24→21:07)
[2017-12-03] MEDS: ENOXAPARIN 40 MG/0.4 ML SYG SC (08:36)
[2017-12-03] MEDS: ACETAMINOPHEN 325 MG TAB PO ×2 (11:06→17:17)
[2017-12-03] MEDS: POTASSIUM CHLORIDE (SR) 20 MEQ TAB PO (13:27)
[2017-12-03 14:42] LABS: ALANINE AMINOTRANSFERASE 59 IU/L (13-69); ALBUMIN 3.5 g/dl (3.3-4.9); ALBUMIN/GLOBULIN RATIO 0.83; ALKALINE PHOSPHATASE 104 IU/L (42-121); ASPARTATE AMINO TRANSFERASE 36 IU/L (15-46); BILIRUBIN,INDIRECT 0.3 mg/dl (0-1.1); BILIRUBIN,TOTAL 0.3 mg/dl (0.2-1.3); BLOOD UREA NITROGEN 33 mg/dl (7-20); CALCIUM 8.2 mg/dl (8.4-10.2); CHLORIDE 100 mmol/L (97-110); GLUCOSE 131 mg/dl (70-220); POTASSIUM 3.7 mmol/L (3.5-5.1); SODIUM 145 mmol/L (135-144); TOTAL PROTEIN 7.7 g/dl (6.1-8.1)
[2017-12-03 14:48] LABS: ANION GAP 9 (8-16)
[2017-12-03 14:54] LABS: CARBON DIOXIDE 40 mmol/L (21-31)
[2017-12-04] MEDS: IPRATROPIUM (HFA) 12.9 GM INHALER INH ×6 (02:18→20:03)
[2017-12-04] MEDS: ALBUTEROL HFA 8 GM INHALER INH ×6 (02:18→20:03)
[2017-12-04 06:33] LABS: AADO2 Arterial 237.6 mmHg (7.0-24.0); Allen Test ACCEPTAB; Arterial Blood Gas Oxygen Sat 90.2 mmHG (95.0-98.0); Arterial COHb 0.6 % (0.0-3.0); Arterial Fraction of Oxyhgb 89.4 % (93.0-99.0); Arterial MetHb 0.3 % (0.0-1.5); Arterial Total Hemglobin 10.2 g/dl (12.0-18.0); Arterial pCO2 84.6 mmhg (35-45); MODE VENT - AC; Site Right Radial
[2017-12-04] MEDS: SUCRALFATE (100 MG/ML) 10ML CUP GTB ×4 (08:06→21:15)
[2017-12-04] MEDS: NAPROXEN 500 MG TAB GTB ×2 (08:07→21:13)
[2017-12-04] MEDS: traMADol 50 MG TAB GTB (08:07)
[2017-12-04] MEDS: ASCORBIC ACID 500 MG TAB GTB (08:07)
[2017-12-04] MEDS: OLANZAPINE 5 MG TAB GTB (08:07)
[2017-12-04] MEDS: SERTRALINE 100 MG TAB GTB (08:07)
[2017-12-04] MEDS: BISACODYL (EC) 5 MG TAB PO (08:08)
[2017-12-04] MEDS: ASPIRIN (EC) 81 MG TAB PO (08:08)
[2017-12-04] MEDS: GABAPENTIN 300 MG CAP GTB ×2 (08:08→12:06)
[2017-12-04] MEDS: AMIODARONE 200 MG TAB GTB ×2 (08:09→21:14)
[2017-12-04] MEDS: DILTIAZEM (CD) 120 MG CAP PO (08:09)
[2017-12-04] MEDS: LANSOPRAZOLE 30 MG CAP GTB (08:10)
[2017-12-04] MEDS: LACTULOSE 30ML CUP GTB ×2 (08:13→21:00)
[2017-12-04] MEDS: ENOXAPARIN 40 MG/0.4 ML SYG SC (08:29)
[2017-12-04] MEDS: NYSTATIN 30 GM POWDER BTL TOP ×2 (08:32→21:16)
[2017-12-04 09:09] LABS: ALANINE AMINOTRANSFERASE 56 IU/L (13-69); ALBUMIN 3.6 g/dl (3.3-4.9); ALBUMIN/GLOBULIN RATIO 0.83; ALKALINE PHOSPHATASE 108 IU/L (42-121); ASPARTATE AMINO TRANSFERASE 36 IU/L (15-46); BILIRUBIN,INDIRECT 0.3 mg/dl (0-1.1); BILIRUBIN,TOTAL 0.3 mg/dl (0.2-1.3); BLOOD UREA NITROGEN 34 mg/dl (7-20); CALCIUM 8.3 mg/dl (8.4-10.2); CHLORIDE 99 mmol/L (97-110); CREATININE 1.41 mg/dl (0.61-1.24); GLUCOSE 125 mg/dl (70-220); POTASSIUM 3.8 mmol/L (3.5-5.1); SODIUM 147 mmol/L (135-144); TOTAL PROTEIN 7.9 g/dl (6.1-8.1)
[2017-12-04 09:24] LABS: ANION GAP 10 (8-16); CARBON DIOXIDE 42 mmol/L (21-31)
[2017-12-04] MEDS: FUROSEMIDE 20 MG TAB PO (12:07)
[2017-12-04] MEDS: NA PHOSPHATE/BIPHOS 133 ML ENEMA PR (16:15)
[2017-12-05] MEDS: IPRATROPIUM (HFA) 12.9 GM INHALER INH ×6 (01:08→19:59)
[2017-12-05] MEDS: ALBUTEROL HFA 8 GM INHALER INH ×6 (01:09→20:00)
[2017-12-05] MEDS: LANSOPRAZOLE 30 MG CAP GTB (07:25)
[2017-12-05] MEDS: SUCRALFATE (100 MG/ML) 10ML CUP GTB ×4 (07:25→21:00)
[2017-12-05 07:27] LABS: ALANINE AMINOTRANSFERASE 52 IU/L (13-69); ALBUMIN 3.5 g/dl (3.3-4.9); ALBUMIN/GLOBULIN RATIO 0.79; ALKALINE PHOSPHATASE 107 IU/L (42-121); ANION GAP 12 (8-16); ASPARTATE AMINO TRANSFERASE 35 IU/L (15-46); BILIRUBIN,INDIRECT 0.3 mg/dl (0-1.1); BILIRUBIN,TOTAL 0.3 mg/dl (0.2-1.3); BLOOD UREA NITROGEN 36 mg/dl (7-20); CALCIUM 8.2 mg/dl (8.4-10.2); CARBON DIOXIDE 38 mmol/L (21-31); CHLORIDE 100 mmol/L (97-110); CREATININE 1.43 mg/dl (0.61-1.24); GLUCOSE 131 mg/dl (70-220); SODIUM 146 mmol/L (135-144); TOTAL PROTEIN 7.9 g/dl (6.1-8.1)
[2017-12-05] MEDS: NYSTATIN 30 GM POWDER BTL TOP ×2 (09:00→21:29)
[2017-12-05] MEDS: NAPROXEN 500 MG TAB GTB ×2 (09:00→21:28)
[2017-12-05] MEDS: ASCORBIC ACID 500 MG TAB GTB (09:00)
[2017-12-05] MEDS: ENOXAPARIN 40 MG/0.4 ML SYG SC (09:00)
[2017-12-05] MEDS: ASPIRIN (EC) 81 MG TAB PO (09:00)
[2017-12-05] MEDS: SERTRALINE 100 MG TAB GTB (09:00)
[2017-12-05] MEDS: FUROSEMIDE 20 MG TAB PO (09:00)
[2017-12-05] MEDS: DILTIAZEM (CD) 120 MG CAP PO (09:00)
[2017-12-05] MEDS: OLANZAPINE 5 MG TAB GTB (09:00)
[2017-12-05] MEDS: BISACODYL (EC) 5 MG TAB PO (09:00)
[2017-12-05] MEDS: AMIODARONE 200 MG TAB GTB ×2 (09:00→21:29)
[2017-12-05] MEDS: LACTULOSE 30ML CUP GTB ×2 (09:00→21:00)
[2017-12-05] MEDS: traMADol 50 MG TAB PO (17:15)
[2017-12-06] MEDS: IPRATROPIUM (HFA) 12.9 GM INHALER INH ×6 (01:21→19:22)
[2017-12-06] MEDS: ALBUTEROL HFA 8 GM INHALER INH ×6 (01:21→19:21)
[2017-12-06] MEDS: SUCRALFATE (100 MG/ML) 10ML CUP GTB ×4 (07:25→20:40)
[2017-12-06] MEDS: traMADol 50 MG TAB PO ×2 (10:06→22:55)
[2017-12-06] MEDS: BISACODYL (EC) 5 MG TAB PO (10:07)
[2017-12-06] MEDS: LACTULOSE 30ML CUP GTB ×2 (10:07→20:40)
[2017-12-06] MEDS: NYSTATIN 30 GM POWDER BTL TOP ×2 (10:09→20:41)
[2017-12-06] MEDS: OLANZAPINE 5 MG TAB GTB (10:16)
[2017-12-06] MEDS: SERTRALINE 100 MG TAB GTB (10:16)
[2017-12-06] MEDS: LANSOPRAZOLE 30 MG CAP GTB (10:17)
[2017-12-06] MEDS: NA PHOSPHATE/BIPHOS 133 ML ENEMA PR (10:19)
[2017-12-06] MEDS: NAPROXEN 500 MG TAB GTB ×2 (10:30→20:40)
[2017-12-06] MEDS: FUROSEMIDE 20 MG TAB PO (10:30)
[2017-12-06] MEDS: ASPIRIN (EC) 81 MG TAB PO (10:30)
[2017-12-06] MEDS: ASCORBIC ACID 500 MG TAB GTB (10:30)
[2017-12-06 11:07] LABS: ALANINE AMINOTRANSFERASE 63 IU/L (13-69); ALBUMIN 3.3 g/dl (3.3-4.9); ALKALINE PHOSPHATASE 117 IU/L (42-121); ANION GAP 12 (8-16); ASPARTATE AMINO TRANSFERASE 45 IU/L (15-46); BILIRUBIN,INDIRECT 0.3 mg/dl (0-1.1); BILIRUBIN,TOTAL 0.3 mg/dl (0.2-1.3); BLOOD UREA NITROGEN 34 mg/dl (7-20); CALCIUM 8.3 mg/dl (8.4-10.2); CARBON DIOXIDE 36 mmol/L (21-31); CHLORIDE 104 mmol/L (97-110); CREATININE 1.28 mg/dl (0.61-1.24); GLUCOSE 127 mg/dl (70-220); POTASSIUM 3.7 mmol/L (3.5-5.1); SODIUM 148 mmol/L (135-144); TOTAL PROTEIN 7.4 g/dl (6.1-8.1)
[2017-12-06] MEDS: AMIODARONE 200 MG TAB GTB ×2 (11:36→20:42)
[2017-12-06] MEDS: DILTIAZEM (CD) 120 MG CAP PO (11:36)
[2017-12-06] MEDS: ENOXAPARIN 40 MG/0.4 ML SYG SC (11:59)
[2017-12-06] MEDS: ACETAMINOPHEN 325 MG TAB PO (14:51)
[2017-12-07] MEDS: ALBUTEROL HFA 8 GM INHALER INH ×6 (01:46→20:42)
[2017-12-07] MEDS: IPRATROPIUM (HFA) 12.9 GM INHALER INH ×6 (01:46→20:42)
[2017-12-07] MEDS: SUCRALFATE (100 MG/ML) 10ML CUP GTB ×4 (07:25→20:09)
[2017-12-07] MEDS: LANSOPRAZOLE 30 MG CAP GTB (07:25)
[2017-12-07] MEDS: BISACODYL (EC) 5 MG TAB PO (09:00)
[2017-12-07] MEDS: SERTRALINE 100 MG TAB GTB (09:00)
[2017-12-07] MEDS: OLANZAPINE 5 MG TAB GTB (09:00)
[2017-12-07] MEDS: LACTULOSE 30ML CUP GTB ×2 (09:00→20:09)
[2017-12-07] MEDS: traMADol 50 MG TAB PO ×2 (09:07→20:08)
[2017-12-07] MEDS: NYSTATIN 30 GM POWDER BTL TOP ×2 (09:09→20:09)
[2017-12-07 09:47] LABS: ALANINE AMINOTRANSFERASE 64 IU/L (13-69); ALBUMIN 3.2 g/dl (3.3-4.9); ALBUMIN/GLOBULIN RATIO 0.86; ALKALINE PHOSPHATASE 109 IU/L (42-121); ANION GAP 11 (8-16); ASPARTATE AMINO TRANSFERASE 50 IU/L (15-46); BILIRUBIN,INDIRECT 0.4 mg/dl (0-1.1); BILIRUBIN,TOTAL 0.4 mg/dl (0.2-1.3); BLOOD UREA NITROGEN 32 mg/dl (7-20); CALCIUM 8.2 mg/dl (8.4-10.2); CARBON DIOXIDE 35 mmol/L (21-31); CHLORIDE 104 mmol/L (97-110); CREATININE 1.07 mg/dl (0.61-1.24); GLUCOSE 142 mg/dl (70-220); SODIUM 146 mmol/L (135-144); TOTAL PROTEIN 6.9 g/dl (6.1-8.1)
[2017-12-07] MEDS: FUROSEMIDE 20 MG TAB PO (10:18)
[2017-12-07] MEDS: AMIODARONE 200 MG TAB GTB ×2 (10:18→20:08)
[2017-12-07] MEDS: DILTIAZEM (CD) 120 MG CAP PO (10:18)
[2017-12-07] MEDS: NAPROXEN 500 MG TAB GTB ×2 (10:18→20:07)
[2017-12-07] MEDS: ASCORBIC ACID 500 MG TAB GTB (10:18)
[2017-12-07] MEDS: ASPIRIN (EC) 81 MG TAB PO (10:18)
[2017-12-07] MEDS: ENOXAPARIN 40 MG/0.4 ML SYG SC (10:55)
[2017-12-08] MEDS: IPRATROPIUM (HFA) 12.9 GM INHALER INH ×6 (01:28→21:00)
[2017-12-08] MEDS: ALBUTEROL HFA 8 GM INHALER INH ×6 (01:28→21:00)
[2017-12-08] MEDS: ACETAMINOPHEN 325 MG TAB PO (01:51)
[2017-12-08] MEDS: LANSOPRAZOLE 30 MG CAP GTB (07:25)
[2017-12-08] MEDS: SUCRALFATE (100 MG/ML) 10ML CUP GTB ×4 (07:25→20:47)
[2017-12-08] MEDS: ASCORBIC ACID 500 MG TAB GTB (08:41)
[2017-12-08] MEDS: AMIODARONE 200 MG TAB GTB ×2 (08:42→20:47)
[2017-12-08] MEDS: ASPIRIN (EC) 81 MG TAB PO (08:42)
[2017-12-08] MEDS: FUROSEMIDE 20 MG TAB PO (08:42)
[2017-12-08] MEDS: DILTIAZEM (CD) 120 MG CAP PO (08:43)
[2017-12-08] MEDS: LACTULOSE 30ML CUP GTB ×2 (08:44→20:48)
[2017-12-08] MEDS: NAPROXEN 500 MG TAB GTB ×2 (08:44→20:49)
[2017-12-08] MEDS: NYSTATIN 30 GM POWDER BTL TOP ×2 (08:45→20:47)
[2017-12-08] MEDS: BISACODYL (EC) 5 MG TAB PO (08:45)
[2017-12-08] MEDS: SERTRALINE 100 MG TAB GTB (08:49)
[2017-12-08] MEDS: OLANZAPINE 5 MG TAB GTB (08:49)
[2017-12-08] MEDS: ENOXAPARIN 40 MG/0.4 ML SYG SC (09:01)
[2017-12-08] MEDS: NA PHOSPHATE/BIPHOS 133 ML ENEMA PR (16:07)
[2017-12-08] MEDS: traMADol 50 MG TAB PO (23:54)
[2017-12-09] MEDS: ALBUTEROL HFA 8 GM INHALER INH ×6 (01:00→21:19)
[2017-12-09] MEDS: IPRATROPIUM (HFA) 12.9 GM INHALER INH ×6 (01:00→21:19)
[2017-12-09] MEDS: LANSOPRAZOLE 30 MG CAP GTB (07:25)
[2017-12-09] MEDS: SUCRALFATE (100 MG/ML) 10ML CUP GTB ×4 (07:25→21:00)
[2017-12-09] MEDS: FUROSEMIDE 20 MG TAB PO (08:34)
[2017-12-09] MEDS: DILTIAZEM (CD) 120 MG CAP PO (08:34)
[2017-12-09] MEDS: ASCORBIC ACID 500 MG TAB GTB (08:34)
[2017-12-09] MEDS: SERTRALINE 100 MG TAB GTB (08:37)
[2017-12-09] MEDS: OLANZAPINE 5 MG TAB GTB (08:38)
[2017-12-09] MEDS: AMIODARONE 200 MG TAB GTB ×2 (08:39→21:12)
[2017-12-09] MEDS: ASPIRIN (EC) 81 MG TAB PO (08:39)
[2017-12-09] MEDS: NAPROXEN 500 MG TAB GTB ×2 (08:40→21:12)
[2017-12-09] MEDS: ENOXAPARIN 40 MG/0.4 ML SYG SC (08:47)
[2017-12-09] MEDS: LACTULOSE 30ML CUP GTB ×2 (08:48→21:00)
[2017-12-09] MEDS: BISACODYL (EC) 5 MG TAB PO (08:49)
[2017-12-09] MEDS: NYSTATIN 30 GM POWDER BTL TOP ×2 (08:51→21:14)
[2017-12-10] MEDS: IPRATROPIUM (HFA) 12.9 GM INHALER INH ×6 (01:55→20:59)
[2017-12-10] MEDS: ALBUTEROL HFA 8 GM INHALER INH ×6 (01:55→21:00)
[2017-12-10] MEDS: SUCRALFATE (100 MG/ML) 10ML CUP GTB ×4 (07:25→20:49)
[2017-12-10] MEDS: LANSOPRAZOLE 30 MG CAP GTB (07:25)
[2017-12-10] MEDS: traMADol 50 MG TAB PO ×2 (08:45→22:49)
[2017-12-10] MEDS: NAPROXEN 500 MG TAB GTB ×2 (08:47→20:52)
[2017-12-10] MEDS: OLANZAPINE 5 MG TAB GTB (08:47)
[2017-12-10] MEDS: ASCORBIC ACID 500 MG TAB GTB (08:47)
[2017-12-10] MEDS: DILTIAZEM (CD) 120 MG CAP PO (08:47)
[2017-12-10] MEDS: ASPIRIN (EC) 81 MG TAB PO (08:48)
[2017-12-10] MEDS: FUROSEMIDE 20 MG TAB PO (08:48)
[2017-12-10] MEDS: AMIODARONE 200 MG TAB GTB ×2 (08:48→20:52)
[2017-12-10] MEDS: SERTRALINE 100 MG TAB GTB (08:48)
[2017-12-10] MEDS: LACTULOSE 30ML CUP GTB ×2 (08:51→20:49)
[2017-12-10] MEDS: BISACODYL (EC) 5 MG TAB PO (08:52)
[2017-12-10] MEDS: NYSTATIN 30 GM POWDER BTL TOP ×2 (08:52→21:17)
[2017-12-10] MEDS: ENOXAPARIN 40 MG/0.4 ML SYG SC (09:00)
[2017-12-10] MEDS: NA PHOSPHATE/BIPHOS 133 ML ENEMA PR (16:01)
[2017-12-11] MEDS: IPRATROPIUM (HFA) 12.9 GM INHALER INH ×6 (01:13→20:34)
[2017-12-11] MEDS: ALBUTEROL HFA 8 GM INHALER INH ×6 (01:13→20:33)
[2017-12-11] MEDS: SUCRALFATE (100 MG/ML) 10ML CUP GTB ×2 (07:25→11:20)
[2017-12-11] MEDS: LANSOPRAZOLE 30 MG CAP GTB (07:25)
[2017-12-11] MEDS: LACTULOSE 30ML CUP GTB (09:00)
[2017-12-11] MEDS: BISACODYL (EC) 5 MG TAB PO (09:00)
[2017-12-11] MEDS: SERTRALINE 100 MG TAB GTB (09:15)
[2017-12-11] MEDS: DILTIAZEM (CD) 120 MG CAP PO (09:15)
[2017-12-11] MEDS: AMIODARONE 200 MG TAB GTB ×2 (09:16→20:44)
[2017-12-11] MEDS: OLANZAPINE 5 MG TAB GTB (09:16)
[2017-12-11] MEDS: ASPIRIN (EC) 81 MG TAB PO (09:17)
[2017-12-11] MEDS: NAPROXEN 500 MG TAB GTB ×2 (09:17→20:44)
[2017-12-11] MEDS: ASCORBIC ACID 500 MG TAB GTB (09:17)
[2017-12-11] MEDS: FUROSEMIDE 20 MG TAB PO (09:17)
[2017-12-11] MEDS: NYSTATIN 30 GM POWDER BTL TOP ×2 (09:18→20:43)
[2017-12-11] MEDS: ENOXAPARIN 40 MG/0.4 ML SYG SC (09:31)
[2017-12-12] MEDS: IPRATROPIUM (HFA) 12.9 GM INHALER INH ×6 (01:16→19:48)
[2017-12-12] MEDS: ALBUTEROL HFA 8 GM INHALER INH ×6 (01:16→19:48)
[2017-12-12 06:31] LABS: ADD MAN DIFF? NO
[2017-12-12 06:37] LABS: WHITE BLOOD COUNT 4.1 10^3/ul (4.8-10.8)
[2017-12-12 06:37] LABS: ABNORMAL IP MESSAGE 1; BASOPHILS % 0.5 % (0.0-2.0); EOSINOPHILS # 0.3 10^3/ul (0.0-0.5); EOSINOPHILS % 6.1 % (0.0-7.0); HEMATOCRIT 33.2 % (42.0-52.0); HEMOGLOBIN 9.7 g/dl (14.0-18.0); LYMPHOCYTES # 0.7 10^3/ul (0.8-2.9); MEAN CORPUSCULAR HEMOGLOBIN 27.6 pg (29.0-33.0); MEAN CORPUSCULAR HGB CONC 29.2 g/dl (32.0-37.0); MEAN CORPUSCULAR VOLUME 94.3 fl (82.0-101.0); MEAN PLATELET VOLUME 12.8 fl (7.4-10.4); MONOCYTE # 0.4 10^3/ul (0.3-0.9); MONOCYTES % 8.7 % (0.0-11.0); NEUTROPHIL # 2.8 10^3/ul (1.6-7.5); NEUTROPHILS % 68.2 % (39.0-77.0); PLATELET COUNT 110 10^3/UL (140-415); POSITIVE DIFF @See below; RED BLOOD COUNT 3.52 10^6/ul (4.70-6.10); RED CELL DISTRIBUTION WIDTH 19.7 % (11.5-14.5)
[2017-12-12 07:00] LABS: ANION GAP 8 (8-16); BLOOD UREA NITROGEN 20 mg/dl (7-20); CALCIUM 8.3 mg/dl (8.4-10.2); CARBON DIOXIDE 37 mmol/L (21-31); CHLORIDE 105 mmol/L (97-110); GLUCOSE 123 mg/dl (70-220); MAGNESIUM 2.1 mg/dl (1.7-2.5); PHOSPHORUS 3.8 mg/dl (2.5-4.9); POTASSIUM 3.8 mmol/L (3.5-5.1); SODIUM 146 mmol/L (135-144)
[2017-12-12] MEDS: NYSTATIN 30 GM POWDER BTL TOP ×2 (10:04→21:24)
[2017-12-12] MEDS: AMIODARONE 200 MG TAB GTB ×2 (10:07→21:16)
[2017-12-12] MEDS: DILTIAZEM (CD) 120 MG CAP PO (10:08)
[2017-12-12] MEDS: ASPIRIN (EC) 81 MG TAB PO (10:09)
[2017-12-12] MEDS: ASCORBIC ACID 500 MG TAB GTB (10:09)
[2017-12-12] MEDS: NAPROXEN 500 MG TAB GTB ×2 (10:09→21:15)
[2017-12-12] MEDS: OLANZAPINE 5 MG TAB GTB (10:09)
[2017-12-12] MEDS: FUROSEMIDE 20 MG TAB PO (10:09)
[2017-12-12] MEDS: SERTRALINE 100 MG TAB GTB (10:09)
[2017-12-12] MEDS: ENOXAPARIN 40 MG/0.4 ML SYG SC (10:23)
[2017-12-12] MEDS: traMADol 50 MG TAB PO (21:19)
[2017-12-13] MEDS: IPRATROPIUM (HFA) 12.9 GM INHALER INH ×6 (02:11→20:21)
[2017-12-13] MEDS: ALBUTEROL HFA 8 GM INHALER INH ×6 (02:12→20:21)
[2017-12-13] MEDS: OLANZAPINE 5 MG TAB GTB (08:58)
[2017-12-13] MEDS: ASPIRIN (EC) 81 MG TAB PO (08:58)
[2017-12-13] MEDS: ASCORBIC ACID 500 MG TAB GTB (08:58)
[2017-12-13] MEDS: NAPROXEN 500 MG TAB GTB ×2 (08:58→23:35)
[2017-12-13] MEDS: SERTRALINE 100 MG TAB GTB (08:59)
[2017-12-13] MEDS: AMIODARONE 200 MG TAB GTB ×2 (08:59→23:54)
[2017-12-13] MEDS: DILTIAZEM (CD) 120 MG CAP PO (08:59)
[2017-12-13] MEDS: FUROSEMIDE 20 MG TAB PO (08:59)
[2017-12-13] MEDS: ENOXAPARIN 40 MG/0.4 ML SYG SC (09:00)
[2017-12-13] MEDS: NYSTATIN 30 GM POWDER BTL TOP ×2 (09:00→23:35)
[2017-12-13] MEDS: traMADol 50 MG TAB PO (20:25)
[2017-12-14] MEDS: IPRATROPIUM (HFA) 12.9 GM INHALER INH ×7 (01:00→21:04)
[2017-12-14] MEDS: ALBUTEROL HFA 8 GM INHALER INH ×7 (01:00→21:04)
[2017-12-14] MEDS: NYSTATIN 30 GM POWDER BTL TOP ×2 (09:20→21:54)
[2017-12-14] MEDS: NAPROXEN 500 MG TAB GTB ×2 (09:21→21:53)
[2017-12-14] MEDS: AMIODARONE 200 MG TAB GTB ×2 (09:21→21:59)
[2017-12-14] MEDS: ASPIRIN (EC) 81 MG TAB PO (09:21)
[2017-12-14] MEDS: OLANZAPINE 5 MG TAB GTB (09:22)
[2017-12-14] MEDS: ASCORBIC ACID 500 MG TAB GTB (09:22)
[2017-12-14] MEDS: DILTIAZEM (CD) 120 MG CAP PO (09:22)
[2017-12-14] MEDS: FUROSEMIDE 20 MG TAB PO (09:22)
[2017-12-14] MEDS: ENOXAPARIN 40 MG/0.4 ML SYG SC (09:30)
[2017-12-14] MEDS: SERTRALINE 100 MG TAB GTB (09:49)
[2017-12-15] MEDS: IPRATROPIUM (HFA) 12.9 GM INHALER INH ×7 (01:00→20:52)
[2017-12-15] MEDS: ALBUTEROL HFA 8 GM INHALER INH ×6 (01:00→20:51)
[2017-12-15] MEDS: SERTRALINE 100 MG TAB GTB (09:04)
[2017-12-15] MEDS: ASCORBIC ACID 500 MG TAB GTB (09:05)
[2017-12-15] MEDS: FUROSEMIDE 20 MG TAB PO (09:05)
[2017-12-15] MEDS: NAPROXEN 500 MG TAB GTB ×2 (09:05→21:06)
[2017-12-15] MEDS: AMIODARONE 200 MG TAB GTB ×2 (09:05→21:07)
[2017-12-15] MEDS: NYSTATIN 30 GM POWDER BTL TOP ×2 (09:06→21:07)
[2017-12-15] MEDS: ASPIRIN (EC) 81 MG TAB PO (09:06)
[2017-12-15] MEDS: OLANZAPINE 5 MG TAB GTB (09:06)
[2017-12-15] MEDS: DILTIAZEM (CD) 120 MG CAP PO (09:06)
[2017-12-15] MEDS: ENOXAPARIN 40 MG/0.4 ML SYG SC (09:17)
[2017-12-15] MEDS: NITROGLYCERIN (SL) 0.4 MG TAB SL (15:35)
[2017-12-15] MEDS: ACETAMINOPHEN 325 MG TAB PO (15:50)
[2017-12-16] MEDS: ALBUTEROL HFA 8 GM INHALER INH ×6 (01:38→21:09)
[2017-12-16] MEDS: IPRATROPIUM (HFA) 12.9 GM INHALER INH ×6 (01:38→21:08)
[2017-12-16] MEDS: OLANZAPINE 5 MG TAB GTB (08:50)
[2017-12-16] MEDS: NAPROXEN 500 MG TAB GTB ×2 (08:50→21:32)
[2017-12-16] MEDS: FUROSEMIDE 20 MG TAB PO (08:51)
[2017-12-16] MEDS: DILTIAZEM (CD) 120 MG CAP PO (08:51)
[2017-12-16] MEDS: NYSTATIN 30 GM POWDER BTL TOP ×2 (08:51→21:32)
[2017-12-16] MEDS: AMIODARONE 200 MG TAB GTB ×2 (08:51→21:32)
[2017-12-16] MEDS: ASCORBIC ACID 500 MG TAB GTB (08:51)
[2017-12-16] MEDS: ASPIRIN (EC) 81 MG TAB PO (08:51)
[2017-12-16] MEDS: SERTRALINE 100 MG TAB GTB (08:51)
[2017-12-16] MEDS: ENOXAPARIN 40 MG/0.4 ML SYG SC (08:52)
[2017-12-16] MEDS: NA PHOSPHATE/BIPHOS 133 ML ENEMA PR (13:36)
[2017-12-16] MEDS: traMADol 50 MG TAB PO (21:35)
[2017-12-17] MEDS: IPRATROPIUM (HFA) 12.9 GM INHALER INH ×6 (01:30→21:40)
[2017-12-17] MEDS: ALBUTEROL HFA 8 GM INHALER INH ×6 (01:30→21:40)
[2017-12-17] MEDS: traMADol 50 MG TAB PO ×2 (05:10→15:41)
[2017-12-17] MEDS: NYSTATIN 30 GM POWDER BTL TOP ×2 (09:00→20:22)
[2017-12-17] MEDS: ENOXAPARIN 40 MG/0.4 ML SYG SC (09:00)
[2017-12-17] MEDS: AMIODARONE 200 MG TAB GTB ×2 (10:29→20:21)
[2017-12-17] MEDS: ASCORBIC ACID 500 MG TAB GTB (10:30)
[2017-12-17] MEDS: SERTRALINE 100 MG TAB GTB (10:30)
[2017-12-17] MEDS: NAPROXEN 500 MG TAB GTB ×2 (10:30→20:21)
[2017-12-17] MEDS: FUROSEMIDE 20 MG TAB PO (10:30)
[2017-12-17] MEDS: DILTIAZEM (CD) 120 MG CAP PO (10:30)
[2017-12-17] MEDS: OLANZAPINE 5 MG TAB GTB (10:30)
[2017-12-17] MEDS: ASPIRIN (EC) 81 MG TAB PO (10:30)
[2017-12-18] MEDS: IPRATROPIUM (HFA) 12.9 GM INHALER INH ×6 (00:56→19:36)
[2017-12-18] MEDS: ALBUTEROL HFA 8 GM INHALER INH ×6 (00:56→19:35)
[2017-12-18] MEDS: traMADol 50 MG TAB PO ×2 (07:05→15:36)
[2017-12-18] MEDS: OLANZAPINE 5 MG TAB GTB (08:52)
[2017-12-18] MEDS: FUROSEMIDE 20 MG TAB PO (08:52)
[2017-12-18] MEDS: NAPROXEN 500 MG TAB GTB ×2 (08:52→21:02)
[2017-12-18] MEDS: SERTRALINE 100 MG TAB GTB (08:52)
[2017-12-18] MEDS: AMIODARONE 200 MG TAB GTB ×2 (08:52→21:02)
[2017-12-18] MEDS: ASCORBIC ACID 500 MG TAB GTB (08:52)
[2017-12-18] MEDS: NYSTATIN 30 GM POWDER BTL TOP ×2 (08:53→21:03)
[2017-12-18] MEDS: DILTIAZEM (CD) 120 MG CAP PO (08:53)
[2017-12-18] MEDS: ASPIRIN (EC) 81 MG TAB PO (08:53)
[2017-12-18] MEDS: ENOXAPARIN 40 MG/0.4 ML SYG SC (08:55)
[2017-12-19] MEDS: IPRATROPIUM (HFA) 12.9 GM INHALER INH ×6 (01:33→20:06)
[2017-12-19] MEDS: ALBUTEROL HFA 8 GM INHALER INH ×6 (01:34→20:06)
[2017-12-19] MEDS: NAPROXEN 500 MG TAB GTB ×2 (09:08→21:30)
[2017-12-19] MEDS: OLANZAPINE 5 MG TAB GTB (09:08)
[2017-12-19] MEDS: ASCORBIC ACID 500 MG TAB GTB (09:08)
[2017-12-19] MEDS: FUROSEMIDE 20 MG TAB PO (09:09)
[2017-12-19] MEDS: DILTIAZEM (CD) 120 MG CAP PO (09:09)
[2017-12-19] MEDS: AMIODARONE 200 MG TAB GTB ×2 (09:09→21:30)
[2017-12-19] MEDS: ASPIRIN (EC) 81 MG TAB PO (09:09)
[2017-12-19] MEDS: ENOXAPARIN 40 MG/0.4 ML SYG SC (09:11)
[2017-12-19] MEDS: NYSTATIN 30 GM POWDER BTL TOP ×2 (09:12→21:30)
[2017-12-19] MEDS: SERTRALINE 100 MG TAB GTB (09:38)
[2017-12-19] MEDS: NA PHOSPHATE/BIPHOS 133 ML ENEMA PR (15:42)
[2017-12-20] MEDS: IPRATROPIUM (HFA) 12.9 GM INHALER INH ×6 (00:22→21:09)
[2017-12-20] MEDS: ALBUTEROL HFA 8 GM INHALER INH ×6 (00:22→21:09)
[2017-12-20] MEDS: traMADol 50 MG TAB PO (03:05)
[2017-12-20] MEDS: OLANZAPINE 5 MG TAB GTB (08:56)
[2017-12-20] MEDS: ASCORBIC ACID 500 MG TAB GTB (08:56)
[2017-12-20] MEDS: NAPROXEN 500 MG TAB GTB ×2 (08:56→21:11)
[2017-12-20] MEDS: DILTIAZEM (CD) 120 MG CAP PO (08:57)
[2017-12-20] MEDS: ASPIRIN (EC) 81 MG TAB PO (08:57)
[2017-12-20] MEDS: FUROSEMIDE 20 MG TAB PO (08:58)
[2017-12-20] MEDS: AMIODARONE 200 MG TAB GTB ×2 (08:58→21:11)
[2017-12-20] MEDS: NYSTATIN 30 GM POWDER BTL TOP ×2 (08:58→21:11)
[2017-12-20] MEDS: SERTRALINE 100 MG TAB GTB (08:58)
[2017-12-20] MEDS: ENOXAPARIN 40 MG/0.4 ML SYG SC (09:04)
[2017-12-21] MEDS: IPRATROPIUM (HFA) 12.9 GM INHALER INH ×6 (00:29→20:42)
[2017-12-21] MEDS: ALBUTEROL HFA 8 GM INHALER INH ×6 (00:30→20:42)
[2017-12-21] MEDS: DILTIAZEM (CD) 120 MG CAP PO (10:13)
[2017-12-21] MEDS: NYSTATIN 30 GM POWDER BTL TOP ×2 (10:13→20:53)
[2017-12-21] MEDS: SERTRALINE 100 MG TAB GTB (10:14)
[2017-12-21] MEDS: ASPIRIN (EC) 81 MG TAB PO (10:14)
[2017-12-21] MEDS: ASCORBIC ACID 500 MG TAB GTB (10:14)
[2017-12-21] MEDS: NAPROXEN 500 MG TAB GTB ×2 (10:14→20:52)
[2017-12-21] MEDS: OLANZAPINE 5 MG TAB GTB (10:15)
[2017-12-21] MEDS: FUROSEMIDE 20 MG TAB PO (10:15)
[2017-12-21] MEDS: AMIODARONE 200 MG TAB GTB ×2 (10:15→20:52)
[2017-12-21] MEDS: ENOXAPARIN 40 MG/0.4 ML SYG SC (10:19)
[2017-12-22] MEDS: IPRATROPIUM (HFA) 12.9 GM INHALER INH ×6 (01:00→21:11)
[2017-12-22] MEDS: ALBUTEROL HFA 8 GM INHALER INH ×6 (01:00→21:11)
[2017-12-22] MEDS: NA PHOSPHATE/BIPHOS 133 ML ENEMA PR (02:46)
[2017-12-22] MEDS: ASCORBIC ACID 500 MG TAB GTB (10:05)
[2017-12-22] MEDS: NAPROXEN 500 MG TAB GTB ×2 (10:05→20:28)
[2017-12-22] MEDS: OLANZAPINE 5 MG TAB GTB (10:05)
[2017-12-22] MEDS: FUROSEMIDE 20 MG TAB PO (10:06)
[2017-12-22] MEDS: DILTIAZEM (CD) 120 MG CAP PO (10:06)
[2017-12-22] MEDS: SERTRALINE 100 MG TAB GTB (10:06)
[2017-12-22] MEDS: AMIODARONE 200 MG TAB GTB ×2 (10:06→20:28)
[2017-12-22] MEDS: ASPIRIN (EC) 81 MG TAB PO (10:07)
[2017-12-22] MEDS: NYSTATIN 30 GM POWDER BTL TOP ×2 (10:07→20:28)
[2017-12-22] MEDS: ENOXAPARIN 40 MG/0.4 ML SYG SC (10:13)
[2017-12-22] MEDS: traMADol 50 MG TAB PO (15:17)
[2017-12-22] MEDS: LIDOCAINE 4% CR TOP (21:22)
[2017-12-23] MEDS: IPRATROPIUM (HFA) 12.9 GM INHALER INH ×6 (01:43→21:09)
[2017-12-23] MEDS: ALBUTEROL HFA 8 GM INHALER INH ×6 (01:43→21:09)
[2017-12-23] MEDS: SERTRALINE 100 MG TAB GTB (08:37)
[2017-12-23] MEDS: OLANZAPINE 5 MG TAB GTB (08:37)
[2017-12-23] MEDS: ASCORBIC ACID 500 MG TAB GTB (08:37)
[2017-12-23] MEDS: AMIODARONE 200 MG TAB GTB ×2 (08:37→20:48)
[2017-12-23] MEDS: NAPROXEN 500 MG TAB GTB ×2 (08:37→20:47)
[2017-12-23] MEDS: ASPIRIN (EC) 81 MG TAB PO (08:37)
[2017-12-23] MEDS: NYSTATIN 30 GM POWDER BTL TOP ×2 (08:38→21:00)
[2017-12-23] MEDS: FUROSEMIDE 20 MG TAB PO (08:38)
[2017-12-23] MEDS: ENOXAPARIN 40 MG/0.4 ML SYG SC (08:41)
[2017-12-23] MEDS: DILTIAZEM (CD) 120 MG CAP PO (08:42)
[2017-12-23] MEDS: NA PHOSPHATE/BIPHOS 133 ML ENEMA PR (12:48)
[2017-12-23] MEDS: traMADol 50 MG TAB PO (16:40)
[2017-12-24] MEDS: ALBUTEROL HFA 8 GM INHALER INH ×6 (01:00→21:02)
[2017-12-24] MEDS: IPRATROPIUM (HFA) 12.9 GM INHALER INH ×6 (01:00→21:02)
[2017-12-24] MEDS: ASPIRIN (EC) 81 MG TAB PO (09:32)
[2017-12-24] MEDS: FUROSEMIDE 20 MG TAB PO (09:32)
[2017-12-24] MEDS: ASCORBIC ACID 500 MG TAB GTB (09:32)
[2017-12-24] MEDS: OLANZAPINE 5 MG TAB GTB (09:32)
[2017-12-24] MEDS: SERTRALINE 100 MG TAB GTB (09:32)
[2017-12-24] MEDS: AMIODARONE 200 MG TAB GTB ×2 (09:33→20:34)
[2017-12-24] MEDS: DILTIAZEM (CD) 120 MG CAP PO (09:33)
[2017-12-24] MEDS: ENOXAPARIN 40 MG/0.4 ML SYG SC (09:40)
[2017-12-24] MEDS: NAPROXEN 500 MG TAB GTB ×2 (10:36→20:33)
[2017-12-24] MEDS: NYSTATIN 30 GM POWDER BTL TOP ×2 (11:59→21:00)
[2017-12-24] MEDS: traMADol 50 MG TAB PO ×2 (18:36→19:45)
[2017-12-25] MEDS: ALBUTEROL HFA 8 GM INHALER INH ×8 (01:21→21:04)
[2017-12-25] MEDS: IPRATROPIUM (HFA) 12.9 GM INHALER INH ×10 (01:21→21:04)
[2017-12-25] MEDS: SERTRALINE 100 MG TAB GTB (08:56)
[2017-12-25] MEDS: OLANZAPINE 5 MG TAB GTB (08:56)
[2017-12-25] MEDS: ASCORBIC ACID 500 MG TAB GTB (08:56)
[2017-12-25] MEDS: DILTIAZEM (CD) 120 MG CAP PO (08:56)
[2017-12-25] MEDS: NAPROXEN 500 MG TAB GTB ×2 (08:56→22:06)
[2017-12-25] MEDS: ASPIRIN (EC) 81 MG TAB PO (08:56)
[2017-12-25] MEDS: FUROSEMIDE 20 MG TAB PO (08:57)
[2017-12-25] MEDS: AMIODARONE 200 MG TAB GTB ×2 (08:57→22:06)
[2017-12-25] MEDS: ENOXAPARIN 40 MG/0.4 ML SYG SC (08:59)
[2017-12-25] MEDS: NYSTATIN 30 GM POWDER BTL TOP ×2 (08:59→21:00)
[2017-12-25] MEDS: traMADol 50 MG TAB PO (10:28)
[2017-12-26] MEDS: ALBUTEROL HFA 8 GM INHALER INH ×6 (00:42→21:00)
[2017-12-26] MEDS: IPRATROPIUM (HFA) 12.9 GM INHALER INH ×6 (00:42→21:00)
[2017-12-26] MEDS: SERTRALINE 100 MG TAB GTB (08:57)
[2017-12-26] MEDS: NAPROXEN 500 MG TAB GTB ×2 (08:57→21:37)
[2017-12-26] MEDS: OLANZAPINE 5 MG TAB GTB (08:57)
[2017-12-26] MEDS: FUROSEMIDE 20 MG TAB PO (08:58)
[2017-12-26] MEDS: ASCORBIC ACID 500 MG TAB GTB (08:58)
[2017-12-26] MEDS: ASPIRIN (EC) 81 MG TAB PO (08:58)
[2017-12-26] MEDS: DILTIAZEM (CD) 120 MG CAP PO (08:58)
[2017-12-26] MEDS: AMIODARONE 200 MG TAB GTB ×2 (08:59→21:37)
[2017-12-26] MEDS: NYSTATIN 30 GM POWDER BTL TOP ×2 (08:59→21:37)
[2017-12-26] MEDS: ENOXAPARIN 40 MG/0.4 ML SYG SC (09:04)
[2017-12-26] MEDS: NITROGLYCERIN (SL) 0.4 MG TAB SL (10:39)
[2017-12-26] MEDS: ACETAMINOPHEN 325 MG TAB PO (12:26)
[2017-12-27] MEDS: ALBUTEROL HFA 8 GM INHALER INH ×3 (01:58→10:16)
[2017-12-27] MEDS: IPRATROPIUM (HFA) 12.9 GM INHALER INH ×3 (01:58→10:15)
[2017-12-27] MEDS: ASPIRIN (EC) 81 MG TAB PO (08:54)
[2017-12-27] MEDS: OLANZAPINE 5 MG TAB GTB (08:54)
[2017-12-27] MEDS: NAPROXEN 500 MG TAB GTB (08:54)
[2017-12-27] MEDS: ASCORBIC ACID 500 MG TAB GTB (08:54)
[2017-12-27] MEDS: SERTRALINE 100 MG TAB GTB (08:54)
[2017-12-27] MEDS: DILTIAZEM (CD) 120 MG CAP PO (08:55)
[2017-12-27] MEDS: AMIODARONE 200 MG TAB GTB ×2 (08:55→21:27)
[2017-12-27] MEDS: FUROSEMIDE 20 MG TAB PO (08:56)
[2017-12-27] MEDS: NYSTATIN 30 GM POWDER BTL TOP ×2 (08:56→21:28)
[2017-12-27] MEDS: ENOXAPARIN 40 MG/0.4 ML SYG SC (09:14)
[2017-12-27] MEDS: traMADol 50 MG TAB PO (09:59)
[2017-12-27] MEDS ORDERED: ALBUTEROL HFA 8 GM INHALER INH (11:00)
[2017-12-27] MEDS ORDERED: IPRATROPIUM (HFA) 12.9 GM INHALER INH (11:00)
[2017-12-27 12:03] LABS: ANION GAP 12 (8-16); BLOOD UREA NITROGEN 29 mg/dl (7-20); CALCIUM 8.2 mg/dl (8.4-10.2); CARBON DIOXIDE 33 mmol/L (21-31); CHLORIDE 105 mmol/L (97-110); CREATININE 1.16 mg/dl (0.61-1.24); GLUCOSE 120 mg/dl (70-220); POTASSIUM 3.8 mmol/L (3.5-5.1); SODIUM 146 mmol/L (135-144)
[2017-12-27] MEDS: NA PHOSPHATE/BIPHOS 133 ML ENEMA PR (12:20)
[2017-12-27 12:32] LABS: TROPONIN-I < 0.012 ng/ml (0.000-0.120)
[2017-12-27] MEDS: ACETAMINOPHEN 325 MG TAB PO (13:23)
[2017-12-28] MEDS: ALBUTEROL/IPRATROPIUM (NEB) 3 ML AMP HHN (00:28)
[2017-12-28] MEDS: traMADol 50 MG TAB PO (08:32)
[2017-12-28] MEDS: NYSTATIN 30 GM POWDER BTL TOP ×2 (09:37→21:03)
[2017-12-28] MEDS: OLANZAPINE 5 MG TAB GTB (09:58)
[2017-12-28] MEDS: ASCORBIC ACID 500 MG TAB GTB (09:59)
[2017-12-28] MEDS: FUROSEMIDE 20 MG TAB PO (10:00)
[2017-12-28] MEDS: ASPIRIN (EC) 81 MG TAB PO (10:00)
[2017-12-28] MEDS: SERTRALINE 100 MG TAB GTB (10:00)
[2017-12-28] MEDS: AMIODARONE 200 MG TAB GTB ×2 (10:00→21:02)
[2017-12-28] MEDS: ENOXAPARIN 40 MG/0.4 ML SYG SC (10:02)
[2017-12-28] MEDS: DILTIAZEM (CD) 120 MG CAP PO (10:03)
[2017-12-28 12:24] LABS: ADD MAN DIFF? NO
[2017-12-28 12:26] LABS: WHITE BLOOD COUNT 4.3 10^3/ul (4.8-10.8)
[2017-12-28 12:26] LABS: ABNORMAL IP MESSAGE 1; BASOPHILS % 0.7 % (0.0-2.0); EOSINOPHILS # 0.2 10^3/ul (0.0-0.5); EOSINOPHILS % 4.9 % (0.0-7.0); HEMATOCRIT 33.2 % (42.0-52.0); HEMOGLOBIN 9.7 g/dl (14.0-18.0); LYMPHOCYTES # 0.7 10^3/ul (0.8-2.9); LYMPHOCYTES % 16.1 % (15.0-51.0); MEAN CORPUSCULAR HEMOGLOBIN 27.6 pg (29.0-33.0); MEAN CORPUSCULAR HGB CONC 29.2 g/dl (32.0-37.0); MEAN CORPUSCULAR VOLUME 94.6 fl (82.0-101.0); MONOCYTE # 0.3 10^3/ul (0.3-0.9); MONOCYTES % 7.9 % (0.0-11.0); NEUTROPHILS % 70.2 % (39.0-77.0); PLATELET COUNT 118 10^3/UL (140-415); POSITIVE DIFF @See below; RED BLOOD COUNT 3.51 10^6/ul (4.70-6.10); RED CELL DISTRIBUTION WIDTH 18.6 % (11.5-14.5)
[2017-12-29] MEDS: ALBUTEROL/IPRATROPIUM (NEB) 3 ML AMP HHN ×2 (00:23→13:28)
[2017-12-29] MEDS: SERTRALINE 100 MG TAB GTB (08:48)
[2017-12-29] MEDS: OLANZAPINE 5 MG TAB GTB (08:48)
[2017-12-29] MEDS: AMIODARONE 200 MG TAB GTB ×2 (08:49→21:54)
[2017-12-29] MEDS: ASPIRIN (EC) 81 MG TAB PO (08:50)
[2017-12-29] MEDS: FUROSEMIDE 20 MG TAB PO (08:50)
[2017-12-29] MEDS: ASCORBIC ACID 500 MG TAB GTB (08:50)
[2017-12-29] MEDS: DILTIAZEM (CD) 120 MG CAP PO (08:50)
[2017-12-29] MEDS: NYSTATIN 30 GM POWDER BTL TOP ×2 (08:53→21:55)
[2017-12-29] MEDS: ENOXAPARIN 40 MG/0.4 ML SYG SC (08:58)
[2017-12-30] MEDS: ASPIRIN (EC) 81 MG TAB PO (08:53)
[2017-12-30] MEDS: AMIODARONE 200 MG TAB GTB ×2 (08:54→20:55)
[2017-12-30] MEDS: DILTIAZEM (CD) 120 MG CAP PO (08:54)
[2017-12-30] MEDS: OLANZAPINE 5 MG TAB GTB (08:54)
[2017-12-30] MEDS: FUROSEMIDE 20 MG TAB PO (08:55)
[2017-12-30] MEDS: ASCORBIC ACID 500 MG TAB GTB (08:55)
[2017-12-30] MEDS: SERTRALINE 100 MG TAB GTB (08:55)
[2017-12-30] MEDS: NYSTATIN 30 GM POWDER BTL TOP ×2 (08:56→20:55)
[2017-12-30] MEDS: ENOXAPARIN 40 MG/0.4 ML SYG SC (09:06)
[2017-12-30] MEDS: traMADol 50 MG TAB PO (10:00)
[2017-12-30] MEDS: NA PHOSPHATE/BIPHOS 133 ML ENEMA PR (16:00)
[2017-12-31] MEDS: traMADol 50 MG TAB PO ×2 (02:02→16:08)
[2017-12-31] MEDS: ASCORBIC ACID 500 MG TAB GTB (08:58)
[2017-12-31] MEDS: OLANZAPINE 5 MG TAB GTB (08:58)
[2017-12-31] MEDS: ASPIRIN (EC) 81 MG TAB PO (08:59)
[2017-12-31] MEDS: SERTRALINE 100 MG TAB GTB (08:59)
[2017-12-31] MEDS: DILTIAZEM (CD) 120 MG CAP PO (09:01)
[2017-12-31] MEDS: FUROSEMIDE 20 MG TAB PO (09:02)
[2017-12-31] MEDS: NYSTATIN 30 GM POWDER BTL TOP ×2 (09:03→20:38)
[2017-12-31] MEDS: AMIODARONE 200 MG TAB GTB ×2 (09:03→20:38)
[2017-12-31] MEDS: ENOXAPARIN 40 MG/0.4 ML SYG SC (09:25)
[2017-12-31] MEDS: ALBUTEROL/IPRATROPIUM (NEB) 3 ML AMP HHN (10:38)
[2018-01-01] MEDS: OLANZAPINE 5 MG TAB GTB (08:56)
[2018-01-01] MEDS: SERTRALINE 100 MG TAB GTB (08:56)
[2018-01-01] MEDS: ASCORBIC ACID 500 MG TAB GTB (08:56)
[2018-01-01] MEDS: ASPIRIN (EC) 81 MG TAB PO (08:57)
[2018-01-01] MEDS: FUROSEMIDE 20 MG TAB PO (08:57)
[2018-01-01] MEDS: DILTIAZEM (CD) 120 MG CAP PO (08:58)
[2018-01-01] MEDS: AMIODARONE 200 MG TAB GTB ×2 (08:58→20:21)
[2018-01-01] MEDS: NYSTATIN 30 GM POWDER BTL TOP ×2 (08:58→20:22)
[2018-01-01] MEDS: ENOXAPARIN 40 MG/0.4 ML SYG SC (09:07)
[2018-01-01] MEDS: traMADol 50 MG TAB PO ×2 (12:04→20:21)
[2018-01-02] MEDS: ACETAMINOPHEN 325 MG TAB PO (00:54)
[2018-01-02] MEDS: OLANZAPINE 5 MG TAB GTB (09:06)
[2018-01-02] MEDS: traMADol 50 MG TAB PO ×2 (09:06→21:16)
[2018-01-02] MEDS: SERTRALINE 100 MG TAB GTB (09:07)
[2018-01-02] MEDS: ASPIRIN (EC) 81 MG TAB PO (09:07)
[2018-01-02] MEDS: AMIODARONE 200 MG TAB GTB ×2 (09:07→21:23)
[2018-01-02] MEDS: DILTIAZEM (CD) 120 MG CAP PO (09:08)
[2018-01-02] MEDS: FUROSEMIDE 20 MG TAB PO (09:08)
[2018-01-02] MEDS: ASCORBIC ACID 500 MG TAB GTB (09:08)
[2018-01-02] MEDS: ENOXAPARIN 40 MG/0.4 ML SYG SC (09:10)
[2018-01-02] MEDS: NYSTATIN 30 GM POWDER BTL TOP ×2 (09:10→21:24)
[2018-01-03] MEDS: DILTIAZEM (CD) 120 MG CAP PO (08:13)
[2018-01-03] MEDS: SERTRALINE 100 MG TAB GTB (08:13)
[2018-01-03] MEDS: AMIODARONE 200 MG TAB GTB ×2 (08:13→20:54)
[2018-01-03] MEDS: FUROSEMIDE 20 MG TAB PO (08:13)
[2018-01-03] MEDS: ASCORBIC ACID 500 MG TAB GTB (08:13)
[2018-01-03] MEDS: OLANZAPINE 5 MG TAB GTB (08:13)
[2018-01-03] MEDS: ASPIRIN (EC) 81 MG TAB PO (08:14)
[2018-01-03] MEDS: NYSTATIN 30 GM POWDER BTL TOP ×2 (08:14→20:55)
[2018-01-03] MEDS: ENOXAPARIN 40 MG/0.4 ML SYG SC (09:00)
[2018-01-03] MEDS: traMADol 50 MG TAB PO (20:53)
[2018-01-03] MEDS: NA PHOSPHATE/BIPHOS 133 ML ENEMA PR (20:53)
[2018-01-04] MEDS: ASCORBIC ACID 500 MG TAB GTB (09:16)
[2018-01-04] MEDS: OLANZAPINE 5 MG TAB GTB (09:16)
[2018-01-04] MEDS: ASPIRIN (EC) 81 MG TAB PO (09:17)
[2018-01-04] MEDS: SERTRALINE 100 MG TAB GTB (09:17)
[2018-01-04] MEDS: FUROSEMIDE 20 MG TAB PO (09:18)
[2018-01-04] MEDS: AMIODARONE 200 MG TAB GTB ×2 (09:18→21:00)
[2018-01-04] MEDS: DILTIAZEM (CD) 120 MG CAP PO (09:18)
[2018-01-04] MEDS: NYSTATIN 30 GM POWDER BTL TOP ×2 (09:19→21:00)
[2018-01-04] MEDS: ENOXAPARIN 40 MG/0.4 ML SYG SC (09:31)
[2018-01-04] MEDS: NA PHOSPHATE/BIPHOS 133 ML ENEMA PR (13:40)
[2018-01-05] MEDS: traMADol 50 MG TAB PO ×3 (00:40→17:03)
[2018-01-05] MEDS: AMIODARONE 200 MG TAB GTB ×2 (08:54→21:25)
[2018-01-05] MEDS: SERTRALINE 100 MG TAB GTB (08:55)
[2018-01-05] MEDS: DILTIAZEM (CD) 120 MG CAP PO (08:55)
[2018-01-05] MEDS: ASCORBIC ACID 500 MG TAB GTB (08:55)
[2018-01-05] MEDS: OLANZAPINE 5 MG TAB GTB (08:56)
[2018-01-05] MEDS: FUROSEMIDE 20 MG TAB PO (08:56)
[2018-01-05] MEDS: ASPIRIN (EC) 81 MG TAB PO (08:56)
[2018-01-05] MEDS: NYSTATIN 30 GM POWDER BTL TOP ×2 (09:00→21:25)
[2018-01-05] MEDS: ENOXAPARIN 40 MG/0.4 ML SYG SC (09:07)
[2018-01-06] MEDS: ASCORBIC ACID 500 MG TAB GTB (09:01)
[2018-01-06] MEDS: OLANZAPINE 5 MG TAB GTB (09:01)
[2018-01-06] MEDS: SERTRALINE 100 MG TAB GTB (09:02)
[2018-01-06] MEDS: DILTIAZEM (CD) 120 MG CAP PO (09:02)
[2018-01-06] MEDS: AMIODARONE 200 MG TAB GTB ×2 (09:04→21:09)
[2018-01-06] MEDS: FUROSEMIDE 20 MG TAB PO (09:04)
[2018-01-06] MEDS: ASPIRIN (EC) 81 MG TAB PO (09:05)
[2018-01-06] MEDS: ENOXAPARIN 40 MG/0.4 ML SYG SC (09:13)
[2018-01-06] MEDS: traMADol 50 MG TAB PO (09:14)
[2018-01-06] MEDS: NYSTATIN 30 GM POWDER BTL TOP ×2 (09:16→21:09)
[2018-01-07] MEDS: traMADol 50 MG TAB PO ×2 (04:03→17:17)
[2018-01-07] MEDS: NYSTATIN 30 GM POWDER BTL TOP ×2 (08:52→20:35)
[2018-01-07] MEDS: ASPIRIN (EC) 81 MG TAB PO (08:53)
[2018-01-07] MEDS: ASCORBIC ACID 500 MG TAB GTB (08:53)
[2018-01-07] MEDS: OLANZAPINE 5 MG TAB GTB (08:53)
[2018-01-07] MEDS: AMIODARONE 200 MG TAB GTB ×2 (08:54→20:31)
[2018-01-07] MEDS: DILTIAZEM (CD) 120 MG CAP PO (08:54)
[2018-01-07] MEDS: FUROSEMIDE 20 MG TAB PO (08:54)
[2018-01-07] MEDS: ENOXAPARIN 40 MG/0.4 ML SYG SC (08:59)
[2018-01-07] MEDS: SERTRALINE 100 MG TAB GTB (09:00)
[2018-01-07] MEDS: ACETAMINOPHEN 325 MG TAB PO ×2 (11:02→20:31)
[2018-01-07] MEDS: ALBUTEROL/IPRATROPIUM (NEB) 3 ML AMP HHN (17:41)
[2018-01-08] MEDS: ALBUTEROL/IPRATROPIUM (NEB) 3 ML AMP HHN (01:32)
[2018-01-08] MEDS: AMIODARONE 200 MG TAB GTB ×3 (08:49→21:17)
[2018-01-08] MEDS: FUROSEMIDE 20 MG TAB PO ×2 (08:50→10:06)
[2018-01-08] MEDS: ASCORBIC ACID 500 MG TAB GTB ×2 (08:50→10:07)
[2018-01-08] MEDS: DILTIAZEM (CD) 120 MG CAP PO ×2 (08:50→10:03)
[2018-01-08] MEDS: SERTRALINE 100 MG TAB GTB (08:50)
[2018-01-08] MEDS: ASPIRIN (EC) 81 MG TAB PO ×2 (08:50→10:02)
[2018-01-08] MEDS: OLANZAPINE 5 MG TAB GTB ×2 (08:50→10:06)
[2018-01-08] MEDS: ENOXAPARIN 40 MG/0.4 ML SYG SC ×2 (08:51→10:11)
[2018-01-08] MEDS: NYSTATIN 30 GM POWDER BTL TOP ×3 (08:51→23:00)
[2018-01-08] MEDS: NA PHOSPHATE/BIPHOS 133 ML ENEMA PR (17:12)
[2018-01-08] MEDS: traMADol 50 MG TAB PO (23:07)
[2018-01-09] MEDS: ACETAMINOPHEN 325 MG TAB PO (05:26)
[2018-01-09] MEDS: traMADol 50 MG TAB PO ×2 (06:52→22:06)
[2018-01-09] MEDS: NYSTATIN 30 GM POWDER BTL TOP ×2 (09:00→21:53)
[2018-01-09] MEDS: ENOXAPARIN 40 MG/0.4 ML SYG SC (09:00)
[2018-01-09] MEDS: OLANZAPINE 5 MG TAB GTB (10:31)
[2018-01-09] MEDS: ASCORBIC ACID 500 MG TAB GTB (10:31)
[2018-01-09] MEDS: SERTRALINE 100 MG TAB GTB (10:32)
[2018-01-09] MEDS: FUROSEMIDE 20 MG TAB PO (10:32)
[2018-01-09] MEDS: ASPIRIN (EC) 81 MG TAB PO (10:32)
[2018-01-09] MEDS: DILTIAZEM (CD) 120 MG CAP PO (10:32)
[2018-01-09] MEDS: AMIODARONE 200 MG TAB GTB ×2 (10:32→21:53)
[2018-01-10] MEDS: ACETAMINOPHEN 325 MG TAB PO ×2 (02:00→16:13)
[2018-01-10] MEDS: ALBUTEROL/IPRATROPIUM (NEB) 3 ML AMP HHN (04:43)
[2018-01-10] MEDS: ENOXAPARIN 40 MG/0.4 ML SYG SC (09:00)
[2018-01-10] MEDS: NYSTATIN 30 GM POWDER BTL TOP ×2 (09:00→21:20)
[2018-01-10] MEDS: OLANZAPINE 5 MG TAB GTB (10:29)
[2018-01-10] MEDS: ASPIRIN (EC) 81 MG TAB PO (10:29)
[2018-01-10] MEDS: SERTRALINE 100 MG TAB GTB (10:29)
[2018-01-10] MEDS: ASCORBIC ACID 500 MG TAB GTB (10:30)
[2018-01-10] MEDS: FUROSEMIDE 20 MG TAB PO (10:30)
[2018-01-10] MEDS: DILTIAZEM (CD) 120 MG CAP PO (10:31)
[2018-01-10] MEDS: AMIODARONE 200 MG TAB GTB ×2 (10:31→21:20)
[2018-01-10] MEDS: traMADol 50 MG TAB PO ×2 (10:32→21:21)
[2018-01-10] MEDS ORDERED: FUROSEMIDE 20 MG INJ IV (18:00)
[2018-01-10] MEDS ORDERED: FUROSEMIDE 40 MG TAB PO (18:00)
[2018-01-10] MEDS: FUROSEMIDE 40 MG TAB PO (21:20)
[2018-01-11] MEDS: traMADol 50 MG TAB PO (11:38)
[2018-01-11] MEDS: FUROSEMIDE 40 MG TAB PO ×2 (11:39→21:46)
[2018-01-11] MEDS: OLANZAPINE 5 MG TAB GTB (11:40)
[2018-01-11] MEDS: SERTRALINE 100 MG TAB GTB (11:40)
[2018-01-11] MEDS: ASCORBIC ACID 500 MG TAB GTB (11:41)
[2018-01-11] MEDS: ASPIRIN (EC) 81 MG TAB PO (11:42)
[2018-01-11] MEDS: AMIODARONE 200 MG TAB GTB ×2 (11:42→21:46)
[2018-01-11] MEDS: DILTIAZEM (CD) 120 MG CAP PO (11:43)
[2018-01-11] MEDS: ENOXAPARIN 40 MG/0.4 ML SYG SC (11:44)
[2018-01-11] MEDS: NYSTATIN 30 GM POWDER BTL TOP ×2 (11:44→21:47)
[2018-01-11 18:01] LABS: ANION GAP 9 (8-16); BLOOD UREA NITROGEN 19 mg/dl (7-20); CALCIUM 8.1 mg/dl (8.4-10.2); CARBON DIOXIDE 38 mmol/L (21-31); CHLORIDE 98 mmol/L (97-110); CREATININE 1.08 mg/dl (0.61-1.24); GLUCOSE 127 mg/dl (70-220); POTASSIUM 3.8 mmol/L (3.5-5.1); SODIUM 141 mmol/L (135-144)
[2018-01-12] MEDS: NYSTATIN 30 GM POWDER BTL TOP ×2 (09:00→22:30)
[2018-01-12] MEDS: ASPIRIN (EC) 81 MG TAB PO (09:52)
[2018-01-12] MEDS: OLANZAPINE 5 MG TAB GTB (09:52)
[2018-01-12] MEDS: FUROSEMIDE 40 MG TAB PO ×2 (09:52→22:30)
[2018-01-12] MEDS: SERTRALINE 100 MG TAB GTB (09:52)
[2018-01-12] MEDS: DILTIAZEM (CD) 120 MG CAP PO (09:52)
[2018-01-12] MEDS: AMIODARONE 200 MG TAB GTB ×2 (09:53→22:30)
[2018-01-12] MEDS: ASCORBIC ACID 500 MG TAB GTB (09:53)
[2018-01-12] MEDS: ENOXAPARIN 40 MG/0.4 ML SYG SC (10:09)
[2018-01-12] MEDS: CALCIUM CARBONATE 500 MG CHEW TAB PO ×3 (12:33→18:11)
[2018-01-12] MEDS: ALBUTEROL/IPRATROPIUM (NEB) 3 ML AMP HHN (12:42)
[2018-01-13] MEDS: OLANZAPINE 5 MG TAB GTB (09:06)
[2018-01-13] MEDS: SERTRALINE 100 MG TAB GTB (09:06)
[2018-01-13] MEDS: FUROSEMIDE 40 MG TAB PO ×2 (09:08→20:16)
[2018-01-13] MEDS: ASPIRIN (EC) 81 MG TAB PO (09:11)
[2018-01-13] MEDS: ASCORBIC ACID 500 MG TAB GTB (09:11)
[2018-01-13] MEDS: DILTIAZEM (CD) 120 MG CAP PO (09:11)
[2018-01-13] MEDS: AMIODARONE 200 MG TAB GTB ×2 (09:12→20:16)
[2018-01-13] MEDS: NYSTATIN 30 GM POWDER BTL TOP ×2 (09:12→20:17)
[2018-01-13] MEDS: ENOXAPARIN 40 MG/0.4 ML SYG SC (10:25)
[2018-01-13] MEDS: NA PHOSPHATE/BIPHOS 133 ML ENEMA PR (15:32)
[2018-01-13] MEDS: traMADol 50 MG TAB PO (17:00)
[2018-01-14] MEDS: traMADol 50 MG TAB PO ×2 (00:33→10:37)
[2018-01-14 07:19] LABS: BLOOD UREA NITROGEN 22 mg/dl (7-20); CALCIUM 8.2 mg/dl (8.4-10.2); CHLORIDE 98 mmol/L (97-110); CREATININE 1.23 mg/dl (0.61-1.24); GLUCOSE 121 mg/dl (70-220); POTASSIUM 3.8 mmol/L (3.5-5.1); SODIUM 142 mmol/L (135-144)
[2018-01-14 07:25] LABS: ANION GAP 8 (8-16)
[2018-01-14 07:36] LABS: CARBON DIOXIDE 40 mmol/L (21-31)
[2018-01-14] MEDS: OLANZAPINE 5 MG TAB GTB (08:53)
[2018-01-14] MEDS: ASPIRIN (EC) 81 MG TAB PO (08:53)
[2018-01-14] MEDS: DILTIAZEM (CD) 120 MG CAP PO (08:53)
[2018-01-14] MEDS: FUROSEMIDE 40 MG TAB PO (08:53)
[2018-01-14] MEDS: ASCORBIC ACID 500 MG TAB GTB (08:53)
[2018-01-14] MEDS: AMIODARONE 200 MG TAB GTB ×2 (08:54→21:09)
[2018-01-14] MEDS: SERTRALINE 100 MG TAB GTB (08:54)
[2018-01-14] MEDS: NYSTATIN 30 GM POWDER BTL TOP ×2 (08:55→21:10)
[2018-01-14] MEDS: ENOXAPARIN 40 MG/0.4 ML SYG SC (09:01)
[2018-01-14] MEDS: FUROSEMIDE 20 MG TAB PO (17:22)
[2018-01-15] MEDS: FUROSEMIDE 20 MG TAB PO (06:25)
[2018-01-15 07:12] LABS: AADO2 Arterial 155.9 mmHg (7.0-24.0); Allen Test ACCEPTAB; Arterial Base Excess 12.7 mmol/L (-3.0-3); Arterial Blood Gas Oxygen Sat 94.7 mmHG (95.0-98.0); Arterial COHb 1.1 % (0.0-3.0); Arterial Fraction of Oxyhgb 93.4 % (93.0-99.0); Arterial MetHb 0.3 % (0.0-1.5); Arterial Total Hemglobin 11.4 g/dl (12.0-18.0); Arterial pCO2 75.5 mmhg (35-45); MODE VENT - AC; Site Right Radial
[2018-01-15] MEDS: ASPIRIN (EC) 81 MG TAB PO (08:44)
[2018-01-15] MEDS: ASCORBIC ACID 500 MG TAB GTB (08:44)
[2018-01-15] MEDS: OLANZAPINE 5 MG TAB GTB (08:44)
[2018-01-15] MEDS: SERTRALINE 100 MG TAB GTB (08:45)
[2018-01-15] MEDS: DILTIAZEM (CD) 120 MG CAP PO (08:45)
[2018-01-15] MEDS: AMIODARONE 200 MG TAB GTB ×2 (08:46→23:25)
[2018-01-15] MEDS: NYSTATIN 30 GM POWDER BTL TOP ×2 (08:46→23:25)
[2018-01-15] MEDS: ENOXAPARIN 40 MG/0.4 ML SYG SC (08:55)
[2018-01-15] MEDS: FUROSEMIDE 40 MG TAB PO (17:11)
[2018-01-16] MEDS: FUROSEMIDE 40 MG TAB PO ×2 (07:36→17:29)
[2018-01-16] MEDS: NYSTATIN 30 GM POWDER BTL TOP ×3 (09:04→21:00)
[2018-01-16] MEDS: SERTRALINE 100 MG TAB GTB (09:05)
[2018-01-16] MEDS: OLANZAPINE 5 MG TAB GTB (09:05)
[2018-01-16] MEDS: DILTIAZEM (CD) 120 MG CAP PO (09:05)
[2018-01-16] MEDS: ASCORBIC ACID 500 MG TAB GTB (09:05)
[2018-01-16] MEDS: AMIODARONE 200 MG TAB GTB ×2 (09:05→21:00)
[2018-01-16] MEDS: ENOXAPARIN 40 MG/0.4 ML SYG SC (09:16)
[2018-01-16 09:53] LABS: ANION GAP 10 (8-16); BLOOD UREA NITROGEN 27 mg/dl (7-20); CALCIUM 8.1 mg/dl (8.4-10.2); CARBON DIOXIDE 38 mmol/L (21-31); CHLORIDE 96 mmol/L (97-110); CREATININE 1.27 mg/dl (0.61-1.24); GLUCOSE 119 mg/dl (70-220); POTASSIUM 3.7 mmol/L (3.5-5.1); SODIUM 140 mmol/L (135-144)
[2018-01-16] MEDS: ASPIRIN (EC) 81 MG TAB PO (10:30)
[2018-01-17] MEDS: traMADol 50 MG TAB PO (04:06)
[2018-01-17] MEDS: FUROSEMIDE 40 MG TAB PO ×3 (06:00→17:25)
[2018-01-17] MEDS: ASCORBIC ACID 500 MG TAB GTB (09:13)
[2018-01-17] MEDS: OLANZAPINE 5 MG TAB GTB (09:13)
[2018-01-17] MEDS: ASPIRIN (EC) 81 MG TAB PO (09:13)
[2018-01-17] MEDS: SERTRALINE 100 MG TAB GTB (09:13)
[2018-01-17] MEDS: AMIODARONE 200 MG TAB GTB ×2 (09:15→21:09)
[2018-01-17] MEDS: DILTIAZEM (CD) 120 MG CAP PO (09:15)
[2018-01-17] MEDS: NYSTATIN 30 GM POWDER BTL TOP ×2 (09:16→21:09)
[2018-01-17] MEDS: ENOXAPARIN 40 MG/0.4 ML SYG SC (09:18)
[2018-01-18] MEDS: FUROSEMIDE 40 MG TAB PO ×2 (06:14→18:03)
[2018-01-18] MEDS: ASPIRIN (EC) 81 MG TAB PO (08:23)
[2018-01-18] MEDS: AMIODARONE 200 MG TAB GTB ×2 (08:23→20:19)
[2018-01-18] MEDS: OLANZAPINE 5 MG TAB GTB (08:23)
[2018-01-18] MEDS: ASCORBIC ACID 500 MG TAB GTB (08:23)
[2018-01-18] MEDS: SERTRALINE 100 MG TAB GTB (08:23)
[2018-01-18] MEDS: NYSTATIN 30 GM POWDER BTL TOP ×2 (08:24→22:03)
[2018-01-18] MEDS: DILTIAZEM (CD) 120 MG CAP PO (08:24)
[2018-01-18] MEDS: ENOXAPARIN 40 MG/0.4 ML SYG SC (08:26)
[2018-01-18] MEDS: NA PHOSPHATE/BIPHOS 133 ML ENEMA PR (13:38)
[2018-01-18] MEDS: traMADol 50 MG TAB PO (20:15)
[2018-01-19] MEDS: FUROSEMIDE 40 MG TAB PO ×2 (05:37→17:23)
[2018-01-19] MEDS: ASPIRIN (EC) 81 MG TAB PO (08:05)
[2018-01-19] MEDS: OLANZAPINE 5 MG TAB GTB (08:05)
[2018-01-19] MEDS: ASCORBIC ACID 500 MG TAB GTB (08:05)
[2018-01-19] MEDS: DILTIAZEM (CD) 120 MG CAP PO (08:06)
[2018-01-19] MEDS: AMIODARONE 200 MG TAB GTB ×2 (08:06→20:18)
[2018-01-19] MEDS: SERTRALINE 100 MG TAB GTB (08:06)
[2018-01-19] MEDS: NYSTATIN 30 GM POWDER BTL TOP ×2 (08:06→20:19)
[2018-01-19] MEDS: ENOXAPARIN 40 MG/0.4 ML SYG SC (08:19)
[2018-01-19] MEDS: traMADol 50 MG TAB PO (17:27)
[2018-01-20] MEDS: FUROSEMIDE 40 MG TAB PO ×2 (05:29→17:07)
[2018-01-20] MEDS: DILTIAZEM (CD) 120 MG CAP PO (08:13)
[2018-01-20] MEDS: ASCORBIC ACID 500 MG TAB GTB (08:13)
[2018-01-20] MEDS: SERTRALINE 100 MG TAB GTB (08:13)
[2018-01-20] MEDS: AMIODARONE 200 MG TAB GTB ×2 (08:13→20:59)
[2018-01-20] MEDS: NYSTATIN 30 GM POWDER BTL TOP ×2 (08:14→21:03)
[2018-01-20] MEDS: OLANZAPINE 5 MG TAB GTB (08:14)
[2018-01-20] MEDS: ASPIRIN (EC) 81 MG TAB PO (08:14)
[2018-01-20] MEDS: ENOXAPARIN 40 MG/0.4 ML SYG SC (08:40)
[2018-01-20] MEDS: traMADol 50 MG TAB PO ×2 (10:26→20:58)
[2018-01-20] MEDS: NA PHOSPHATE/BIPHOS 133 ML ENEMA PR (19:20)
[2018-01-21] MEDS: FUROSEMIDE 40 MG TAB PO ×3 (05:20→18:26)
[2018-01-21] MEDS: SERTRALINE 100 MG TAB GTB (09:00)
[2018-01-21] MEDS: ASCORBIC ACID 500 MG TAB GTB (10:00)
[2018-01-21] MEDS: OLANZAPINE 5 MG TAB GTB (10:00)
[2018-01-21] MEDS: AMIODARONE 200 MG TAB GTB ×2 (10:01→21:34)
[2018-01-21] MEDS: DILTIAZEM (CD) 120 MG CAP PO (10:01)
[2018-01-21] MEDS: ENOXAPARIN 40 MG/0.4 ML SYG SC (10:02)
[2018-01-21] MEDS: ASPIRIN (EC) 81 MG TAB PO (10:02)
[2018-01-21] MEDS: NYSTATIN 30 GM POWDER BTL TOP ×2 (10:05→21:35)
[2018-01-21] MEDS: traMADol 50 MG TAB PO (21:34)
[2018-01-22] MEDS: ACETAMINOPHEN 325 MG TAB PO (04:04)
[2018-01-22] MEDS: FUROSEMIDE 40 MG TAB PO ×2 (06:44→17:14)
[2018-01-22] MEDS: ASCORBIC ACID 500 MG TAB GTB (09:14)
[2018-01-22] MEDS: ENOXAPARIN 40 MG/0.4 ML SYG SC (09:14)
[2018-01-22] MEDS: OLANZAPINE 5 MG TAB GTB (09:15)
[2018-01-22] MEDS: SERTRALINE 100 MG TAB GTB (09:15)
[2018-01-22] MEDS: ASPIRIN (EC) 81 MG TAB PO (09:15)
[2018-01-22] MEDS: AMIODARONE 200 MG TAB GTB ×2 (09:16→21:23)
[2018-01-22] MEDS: DILTIAZEM (CD) 120 MG CAP PO (09:16)
[2018-01-22] MEDS: NYSTATIN 30 GM POWDER BTL TOP ×2 (09:18→21:22)
[2018-01-22] MEDS: traMADol 50 MG TAB PO (23:26)
[2018-01-23] MEDS: FUROSEMIDE 40 MG TAB PO ×2 (05:57→17:19)
[2018-01-23] MEDS: SERTRALINE 100 MG TAB GTB (09:14)
[2018-01-23] MEDS: OLANZAPINE 5 MG TAB GTB (09:14)
[2018-01-23] MEDS: ASCORBIC ACID 500 MG TAB GTB (09:15)
[2018-01-23] MEDS: AMIODARONE 200 MG TAB GTB ×2 (09:16→21:31)
[2018-01-23] MEDS: ASPIRIN (EC) 81 MG TAB PO (09:18)
[2018-01-23] MEDS: DILTIAZEM (CD) 120 MG CAP PO (09:20)
[2018-01-23] MEDS: ENOXAPARIN 40 MG/0.4 ML SYG SC (09:27)
[2018-01-23] MEDS: NA PHOSPHATE/BIPHOS 133 ML ENEMA PR (11:42)
[2018-01-23] MEDS: NYSTATIN 30 GM POWDER BTL TOP ×2 (11:42→21:31)
[2018-01-23] MEDS: traMADol 50 MG TAB PO ×2 (13:26→23:43)
[2018-01-24] MEDS: FUROSEMIDE 40 MG TAB PO ×2 (05:56→17:44)
[2018-01-24 07:46] LABS: BLOOD UREA NITROGEN 30 mg/dl (7-20); CALCIUM 8.2 mg/dl (8.4-10.2); CHLORIDE 93 mmol/L (97-110); CREATININE 1.16 mg/dl (0.61-1.24); GLUCOSE 127 mg/dl (70-220); MAGNESIUM 2.1 mg/dl (1.7-2.5); POTASSIUM 3.9 mmol/L (3.5-5.1); SODIUM 144 mmol/L (135-144)
[2018-01-24 08:00] LABS: ANION GAP 14 (8-16); CARBON DIOXIDE 41 mmol/L (21-31)
[2018-01-24] MEDS: NYSTATIN 30 GM POWDER BTL TOP ×2 (09:00→22:03)
[2018-01-24] MEDS: OLANZAPINE 5 MG TAB GTB (09:25)
[2018-01-24] MEDS: SERTRALINE 100 MG TAB GTB (09:27)
[2018-01-24] MEDS: ASCORBIC ACID 500 MG TAB GTB (09:28)
[2018-01-24] MEDS: AMIODARONE 200 MG TAB GTB ×2 (09:29→22:19)
[2018-01-24] MEDS: DILTIAZEM (CD) 120 MG CAP PO (09:30)
[2018-01-24] MEDS: ASPIRIN (EC) 81 MG TAB PO (09:30)
[2018-01-24] MEDS: ENOXAPARIN 40 MG/0.4 ML SYG SC (09:51)
[2018-01-24] MEDS: POTASSIUM CHLORIDE (SR) 20 MEQ TAB PO (16:32)
[2018-01-25] MEDS: traMADol 50 MG TAB PO ×2 (03:17→17:30)
[2018-01-25] MEDS: FUROSEMIDE 40 MG TAB PO ×2 (05:08→17:40)
[2018-01-25] MEDS: OLANZAPINE 5 MG TAB GTB (08:59)
[2018-01-25] MEDS: ASPIRIN (EC) 81 MG TAB PO (09:00)
[2018-01-25] MEDS: ASCORBIC ACID 500 MG TAB GTB (09:00)
[2018-01-25] MEDS: SERTRALINE 100 MG TAB GTB (09:00)
[2018-01-25] MEDS: POTASSIUM CHLORIDE (SR) 20 MEQ TAB PO (09:00)
[2018-01-25] MEDS: AMIODARONE 200 MG TAB GTB ×2 (09:01→21:13)
[2018-01-25] MEDS: DILTIAZEM (CD) 120 MG CAP PO (09:01)
[2018-01-25] MEDS: NYSTATIN 30 GM POWDER BTL TOP ×2 (09:02→21:14)
[2018-01-25] MEDS: ENOXAPARIN 40 MG/0.4 ML SYG SC (09:13)
[2018-01-25] MEDS: ONDANSETRON 4 MG INJ IV (16:04)
[2018-01-25] MEDS: NA PHOSPHATE/BIPHOS 133 ML ENEMA PR (16:04)
[2018-01-25] MEDS: ACETAMINOPHEN 325 MG TAB PO (21:12)
[2018-01-26] MEDS: FUROSEMIDE 40 MG TAB PO ×2 (06:00→18:30)
[2018-01-26 07:15] LABS: ANION GAP 15 (8-16); BLOOD UREA NITROGEN 31 mg/dl (7-20); CALCIUM 8.2 mg/dl (8.4-10.2); CARBON DIOXIDE 39 mmol/L (21-31); CHLORIDE 92 mmol/L (97-110); GLUCOSE 133 mg/dl (70-220); POTASSIUM 3.9 mmol/L (3.5-5.1); SODIUM 142 mmol/L (135-144)
[2018-01-26] MEDS: OLANZAPINE 5 MG TAB GTB (08:54)
[2018-01-26] MEDS: DILTIAZEM (CD) 120 MG CAP PO (08:54)
[2018-01-26] MEDS: AMIODARONE 200 MG TAB GTB ×2 (08:54→21:40)
[2018-01-26] MEDS: ASCORBIC ACID 500 MG TAB GTB (08:55)
[2018-01-26] MEDS: POTASSIUM CHLORIDE (SR) 20 MEQ TAB PO (08:56)
[2018-01-26] MEDS: SERTRALINE 100 MG TAB GTB (08:56)
[2018-01-26] MEDS: ASPIRIN (EC) 81 MG TAB PO (08:57)
[2018-01-26] MEDS: ENOXAPARIN 40 MG/0.4 ML SYG SC (09:00)
[2018-01-26] MEDS: NYSTATIN 30 GM POWDER BTL TOP ×2 (09:03→21:40)
[2018-01-26] MEDS: traMADol 50 MG TAB PO (18:37)
[2018-01-27] MEDS: FUROSEMIDE 40 MG TAB PO ×2 (05:13→18:40)
[2018-01-27] MEDS: POTASSIUM CHLORIDE (SR) 20 MEQ TAB PO (09:13)
[2018-01-27] MEDS: DILTIAZEM (CD) 120 MG CAP PO (09:13)
[2018-01-27] MEDS: OLANZAPINE 5 MG TAB GTB (09:13)
[2018-01-27] MEDS: ASCORBIC ACID 500 MG TAB GTB (09:13)
[2018-01-27] MEDS: ASPIRIN (EC) 81 MG TAB PO (09:13)
[2018-01-27] MEDS: SERTRALINE 100 MG TAB GTB (09:13)
[2018-01-27] MEDS: AMIODARONE 200 MG TAB GTB ×2 (09:13→20:46)
[2018-01-27] MEDS: ENOXAPARIN 40 MG/0.4 ML SYG SC (09:14)
[2018-01-27] MEDS: NYSTATIN 30 GM POWDER BTL TOP ×2 (09:14→20:47)
[2018-01-27] MEDS: traMADol 50 MG TAB PO (20:47)
[2018-01-28] MEDS: ACETAMINOPHEN 325 MG TAB PO (01:21)
[2018-01-28] MEDS: FUROSEMIDE 40 MG TAB PO ×2 (06:10→17:25)
[2018-01-28 07:17] LABS: ANION GAP 15 (8-16); BLOOD UREA NITROGEN 34 mg/dl (7-20); CALCIUM 8.3 mg/dl (8.4-10.2); CARBON DIOXIDE 37 mmol/L (21-31); CHLORIDE 94 mmol/L (97-110); CREATININE 1.05 mg/dl (0.61-1.24); GLUCOSE 132 mg/dl (70-220); POTASSIUM 3.8 mmol/L (3.5-5.1); SODIUM 142 mmol/L (135-144)
[2018-01-28] MEDS: POTASSIUM CHLORIDE (SR) 20 MEQ TAB PO (09:31)
[2018-01-28] MEDS: ASCORBIC ACID 500 MG TAB GTB (09:31)
[2018-01-28] MEDS: OLANZAPINE 5 MG TAB GTB (09:31)
[2018-01-28] MEDS: SERTRALINE 100 MG TAB GTB (09:32)
[2018-01-28] MEDS: DILTIAZEM (CD) 120 MG CAP PO (09:32)
[2018-01-28] MEDS: ASPIRIN (EC) 81 MG TAB PO (09:32)
[2018-01-28] MEDS: AMIODARONE 200 MG TAB GTB ×2 (09:32→21:01)
[2018-01-28] MEDS: traMADol 50 MG TAB PO (09:33)
[2018-01-28] MEDS: NYSTATIN 30 GM POWDER BTL TOP ×2 (09:33→21:02)
[2018-01-28] MEDS: ENOXAPARIN 40 MG/0.4 ML SYG SC (10:27)
[2018-01-28] MEDS: ALBUTEROL/IPRATROPIUM (NEB) 3 ML AMP HHN (23:45)
[2018-01-29] MEDS: FUROSEMIDE 40 MG TAB PO ×2 (06:07→17:34)
[2018-01-29] MEDS: NYSTATIN 30 GM POWDER BTL TOP ×2 (08:56→20:56)
[2018-01-29] MEDS: OLANZAPINE 5 MG TAB GTB (08:56)
[2018-01-29] MEDS: ASPIRIN (EC) 81 MG TAB PO (08:56)
[2018-01-29] MEDS: DILTIAZEM (CD) 120 MG CAP PO (08:57)
[2018-01-29] MEDS: POTASSIUM CHLORIDE (SR) 20 MEQ TAB PO (08:57)
[2018-01-29] MEDS: AMIODARONE 200 MG TAB GTB ×2 (08:58→20:55)
[2018-01-29] MEDS: ASCORBIC ACID 500 MG TAB GTB (08:58)
[2018-01-29] MEDS: ENOXAPARIN 40 MG/0.4 ML SYG SC (09:52)
[2018-01-29] MEDS: SERTRALINE 100 MG TAB GTB (09:59)
[2018-01-29] MEDS: ACETAMINOPHEN 325 MG TAB PO (23:55)
[2018-01-29] MEDS: ALBUTEROL/IPRATROPIUM (NEB) 3 ML AMP HHN (23:59)
[2018-01-30] MEDS: IBUPROFEN 600 MG TAB PO (03:34)
[2018-01-30] MEDS: FUROSEMIDE 40 MG TAB PO ×2 (05:25→18:20)
[2018-01-30] MEDS: ACETAMINOPHEN 325 MG TAB PO (05:28)
[2018-01-30 06:20] LABS: LACTIC ACID 1.8 mmol/L (0.5-2.0)
[2018-01-30] MEDS: SERTRALINE 100 MG TAB GTB (09:26)
[2018-01-30] MEDS: DILTIAZEM (CD) 120 MG CAP PO (09:26)
[2018-01-30] MEDS: ASPIRIN (EC) 81 MG TAB PO (09:27)
[2018-01-30] MEDS: OLANZAPINE 5 MG TAB GTB (09:27)
[2018-01-30] MEDS: ASCORBIC ACID 500 MG TAB GTB (09:27)
[2018-01-30] MEDS: AMIODARONE 200 MG TAB GTB ×2 (09:27→21:00)
[2018-01-30] MEDS: POTASSIUM CHLORIDE (SR) 20 MEQ TAB PO (09:27)
[2018-01-30] MEDS: NYSTATIN 30 GM POWDER BTL TOP ×2 (09:28→21:01)
[2018-01-30] MEDS: ENOXAPARIN 40 MG/0.4 ML SYG SC (09:40)
[2018-01-30] MEDS: traMADol 50 MG TAB PO (20:58)
[2018-01-31] MEDS: FUROSEMIDE 40 MG TAB PO ×2 (05:46→19:54)
[2018-01-31] MEDS: POTASSIUM CHLORIDE (SR) 20 MEQ TAB PO (08:57)
[2018-01-31] MEDS: SERTRALINE 100 MG TAB GTB (08:58)
[2018-01-31] MEDS: AMIODARONE 200 MG TAB GTB ×2 (08:58→21:09)
[2018-01-31] MEDS: OLANZAPINE 5 MG TAB GTB (08:58)
[2018-01-31] MEDS: NYSTATIN 30 GM POWDER BTL TOP ×2 (08:59→21:08)
[2018-01-31] MEDS: ASPIRIN (EC) 81 MG TAB PO (08:59)
[2018-01-31] MEDS: DILTIAZEM (CD) 120 MG CAP PO (08:59)
[2018-01-31] MEDS: ASCORBIC ACID 500 MG TAB GTB (08:59)
[2018-01-31] MEDS: ENOXAPARIN 40 MG/0.4 ML SYG SC (09:10)
[2018-01-31] MEDS: LOPERAMIDE 2 MG CAP PO ×3 (10:13→22:39)
[2018-02-01] MEDS: BISMUTH SUBSALICYLATE 240 ML BTL PO (01:38)
[2018-02-01] MEDS: FUROSEMIDE 40 MG TAB PO ×2 (05:54→17:45)
[2018-02-01] MEDS: AMIODARONE 200 MG TAB GTB ×2 (09:56→20:19)
[2018-02-01] MEDS: OLANZAPINE 5 MG TAB GTB (09:56)
[2018-02-01] MEDS: DILTIAZEM (CD) 120 MG CAP PO (09:56)
[2018-02-01] MEDS: SERTRALINE 100 MG TAB GTB (09:57)
[2018-02-01] MEDS: ASPIRIN (EC) 81 MG TAB PO (09:57)
[2018-02-01] MEDS: POTASSIUM CHLORIDE (SR) 20 MEQ TAB PO (09:57)
[2018-02-01] MEDS: ASCORBIC ACID 500 MG TAB GTB (09:57)
[2018-02-01] MEDS: NYSTATIN 30 GM POWDER BTL TOP ×2 (09:57→20:19)
[2018-02-01] MEDS: traMADol 50 MG TAB PO (09:58)
[2018-02-01] MEDS: ENOXAPARIN 40 MG/0.4 ML SYG SC (10:45)
[2018-02-01] MEDS: LOPERAMIDE 2 MG CAP PO ×2 (12:12→20:18)
[2018-02-02] MEDS: FUROSEMIDE 40 MG TAB PO ×2 (06:30→17:58)
[2018-02-02] MEDS: ENOXAPARIN 40 MG/0.4 ML SYG SC ×2 (09:00→10:32)
[2018-02-02] MEDS: SERTRALINE 100 MG TAB GTB ×2 (09:00→10:29)
[2018-02-02] MEDS: AMIODARONE 200 MG TAB GTB ×2 (09:00→20:52)
[2018-02-02] MEDS: ASCORBIC ACID 500 MG TAB GTB ×2 (09:00→10:30)
[2018-02-02] MEDS: NYSTATIN 30 GM POWDER BTL TOP ×2 (09:00→10:35)
[2018-02-02] MEDS: ASPIRIN (EC) 81 MG TAB PO ×2 (09:00→10:28)
[2018-02-02] MEDS: DILTIAZEM (CD) 120 MG CAP PO ×2 (09:00→10:30)
[2018-02-02] MEDS: OLANZAPINE 5 MG TAB GTB ×2 (09:00→10:29)
[2018-02-02] MEDS: POTASSIUM CHLORIDE (SR) 20 MEQ TAB PO ×2 (09:00→10:28)
[2018-02-02] MEDS: traMADol 50 MG TAB PO (20:53)
[2018-02-03] MEDS: ACETAMINOPHEN 325 MG TAB PO ×2 (02:32→20:42)
[2018-02-03] MEDS: FUROSEMIDE 40 MG TAB PO ×2 (05:41→18:03)
[2018-02-03] MEDS: OLANZAPINE 5 MG TAB GTB (09:02)
[2018-02-03] MEDS: SERTRALINE 100 MG TAB GTB (09:03)
[2018-02-03] MEDS: ASCORBIC ACID 500 MG TAB GTB (09:04)
[2018-02-03] MEDS: NYSTATIN 30 GM POWDER BTL TOP ×2 (09:04→20:49)
[2018-02-03] MEDS: ASPIRIN (EC) 81 MG TAB PO (09:04)
[2018-02-03] MEDS: POTASSIUM CHLORIDE (SR) 20 MEQ TAB PO (09:04)
[2018-02-03] MEDS: DILTIAZEM (CD) 120 MG CAP PO (09:05)
[2018-02-03] MEDS: AMIODARONE 200 MG TAB GTB ×2 (09:05→20:48)
[2018-02-03] MEDS: ENOXAPARIN 40 MG/0.4 ML SYG SC (09:07)
[2018-02-03] MEDS: traMADol 50 MG TAB PO (16:38)
[2018-02-04] MEDS: FUROSEMIDE 40 MG TAB PO ×2 (05:49→17:24)
[2018-02-04] MEDS: ASCORBIC ACID 500 MG TAB GTB (08:35)
[2018-02-04] MEDS: POTASSIUM CHLORIDE (SR) 20 MEQ TAB PO (08:36)
[2018-02-04] MEDS: OLANZAPINE 5 MG TAB GTB (08:37)
[2018-02-04] MEDS: SERTRALINE 100 MG TAB GTB (08:37)
[2018-02-04] MEDS: ASPIRIN (EC) 81 MG TAB PO (08:38)
[2018-02-04] MEDS: AMIODARONE 200 MG TAB GTB ×2 (08:38→21:00)
[2018-02-04] MEDS: DILTIAZEM (CD) 120 MG CAP PO (08:38)
[2018-02-04] MEDS: ENOXAPARIN 40 MG/0.4 ML SYG SC (08:43)
[2018-02-04] MEDS: NYSTATIN 30 GM POWDER BTL TOP ×2 (08:44→21:45)
[2018-02-04] MEDS: traMADol 50 MG TAB PO (09:45)
[2018-02-05] MEDS: FUROSEMIDE 40 MG TAB PO ×3 (06:00→19:46)
[2018-02-05] MEDS: ASCORBIC ACID 500 MG TAB GTB (08:58)
[2018-02-05] MEDS: OLANZAPINE 5 MG TAB GTB (08:58)
[2018-02-05] MEDS: POTASSIUM CHLORIDE (SR) 20 MEQ TAB PO (08:59)
[2018-02-05] MEDS: SERTRALINE 100 MG TAB GTB (08:59)
[2018-02-05] MEDS: ASPIRIN (EC) 81 MG TAB PO (08:59)
[2018-02-05] MEDS: DILTIAZEM (CD) 120 MG CAP PO (09:00)
[2018-02-05] MEDS: AMIODARONE 200 MG TAB GTB ×2 (09:00→22:26)
[2018-02-05] MEDS: ENOXAPARIN 40 MG/0.4 ML SYG SC (09:03)
[2018-02-05] MEDS: NYSTATIN 30 GM POWDER BTL TOP ×2 (09:04→22:23)
[2018-02-06] MEDS: FUROSEMIDE 40 MG TAB PO ×2 (06:14→18:13)
[2018-02-06] MEDS: NYSTATIN 30 GM POWDER BTL TOP ×2 (09:00→21:44)
[2018-02-06] MEDS: DILTIAZEM (CD) 120 MG CAP PO (09:47)
[2018-02-06] MEDS: ASPIRIN (EC) 81 MG TAB PO (09:48)
[2018-02-06] MEDS: ASCORBIC ACID 500 MG TAB GTB (09:48)
[2018-02-06] MEDS: SERTRALINE 100 MG TAB GTB (09:48)
[2018-02-06] MEDS: AMIODARONE 200 MG TAB GTB ×2 (09:48→21:44)
[2018-02-06] MEDS: POTASSIUM CHLORIDE (SR) 20 MEQ TAB PO (09:48)
[2018-02-06] MEDS: OLANZAPINE 5 MG TAB GTB (09:48)
[2018-02-06] MEDS: ENOXAPARIN 40 MG/0.4 ML SYG SC (10:40)
[2018-02-07] MEDS: FUROSEMIDE 40 MG TAB PO ×2 (07:10→18:12)
[2018-02-07] MEDS: OLANZAPINE 5 MG TAB GTB (09:36)
[2018-02-07] MEDS: POTASSIUM CHLORIDE (SR) 20 MEQ TAB PO (09:36)
[2018-02-07] MEDS: ASCORBIC ACID 500 MG TAB GTB (09:36)
[2018-02-07] MEDS: SERTRALINE 100 MG TAB GTB (09:36)
[2018-02-07] MEDS: ASPIRIN (EC) 81 MG TAB PO (09:36)
[2018-02-07] MEDS: AMIODARONE 200 MG TAB GTB ×2 (09:37→21:22)
[2018-02-07] MEDS: DILTIAZEM (CD) 120 MG CAP PO (09:37)
[2018-02-07] MEDS: ENOXAPARIN 40 MG/0.4 ML SYG SC (09:39)
[2018-02-07] MEDS: NYSTATIN 30 GM POWDER BTL TOP ×2 (09:40→21:22)
[2018-02-07 09:59] LABS: ANION GAP 10 (8-16); BLOOD UREA NITROGEN 24 mg/dl (7-20); CALCIUM 7.9 mg/dl (8.4-10.2); CARBON DIOXIDE 37 mmol/L (21-31); CHLORIDE 101 mmol/L (97-110); CREATININE 1.08 mg/dl (0.61-1.24); GLUCOSE 105 mg/dl (70-220); POTASSIUM 3.6 mmol/L (3.5-5.1); SODIUM 144 mmol/L (135-144)
[2018-02-07] MEDS: traMADol 50 MG TAB PO ×2 (14:27→23:50)
[2018-02-07] MEDS: ACETAMINOPHEN 325 MG TAB PO (18:11)
[2018-02-08] MEDS: ACETAMINOPHEN 325 MG TAB PO (03:37)
[2018-02-08] MEDS: FUROSEMIDE 40 MG TAB PO ×2 (07:42→18:23)
[2018-02-08] MEDS: AMIODARONE 200 MG TAB GTB ×2 (08:32→21:49)
[2018-02-08] MEDS: OLANZAPINE 5 MG TAB GTB (08:33)
[2018-02-08] MEDS: SERTRALINE 100 MG TAB GTB (08:33)
[2018-02-08] MEDS: DILTIAZEM (CD) 120 MG CAP PO (08:33)
[2018-02-08] MEDS: ASCORBIC ACID 500 MG TAB GTB (08:33)
[2018-02-08] MEDS: ASPIRIN (EC) 81 MG TAB PO (08:34)
[2018-02-08] MEDS: ENOXAPARIN 40 MG/0.4 ML SYG SC ×2 (08:34→14:56)
[2018-02-08] MEDS: POTASSIUM CHLORIDE (SR) 20 MEQ TAB PO (08:34)
[2018-02-08] MEDS: NYSTATIN 30 GM POWDER BTL TOP ×2 (08:35→21:49)
[2018-02-08] MEDS: NA PHOSPHATE/BIPHOS 133 ML ENEMA PR (14:28)
[2018-02-09] MEDS: traMADol 50 MG TAB PO (04:51)
[2018-02-09] MEDS: FUROSEMIDE 40 MG TAB PO ×2 (06:00→17:59)
[2018-02-09] MEDS: NA PHOSPHATE/BIPHOS 133 ML ENEMA PR (08:33)
[2018-02-09] MEDS: OLANZAPINE 5 MG TAB GTB (10:11)
[2018-02-09] MEDS: SERTRALINE 100 MG TAB GTB (10:11)
[2018-02-09] MEDS: POTASSIUM CHLORIDE (SR) 20 MEQ TAB PO (10:12)
[2018-02-09] MEDS: DILTIAZEM (CD) 120 MG CAP PO (10:12)
[2018-02-09] MEDS: AMIODARONE 200 MG TAB GTB ×2 (10:13→21:00)
[2018-02-09] MEDS: ASPIRIN (EC) 81 MG TAB PO (10:13)
[2018-02-09] MEDS: ASCORBIC ACID 500 MG TAB GTB (10:13)
[2018-02-09] MEDS: NYSTATIN 30 GM POWDER BTL TOP ×2 (10:14→22:11)
[2018-02-09] MEDS: ENOXAPARIN 40 MG/0.4 ML SYG SC (10:28)
[2018-02-10] MEDS: FUROSEMIDE 40 MG TAB PO ×2 (05:49→18:11)
[2018-02-10] MEDS: SERTRALINE 100 MG TAB GTB (09:00)
[2018-02-10] MEDS: OLANZAPINE 5 MG TAB GTB (09:18)
[2018-02-10] MEDS: ASPIRIN (EC) 81 MG TAB PO (09:18)
[2018-02-10] MEDS: AMIODARONE 200 MG TAB GTB ×2 (09:19→21:04)
[2018-02-10] MEDS: DILTIAZEM (CD) 120 MG CAP PO (09:19)
[2018-02-10] MEDS: ASCORBIC ACID 500 MG TAB GTB (09:19)
[2018-02-10] MEDS: POTASSIUM CHLORIDE (SR) 20 MEQ TAB PO (09:19)
[2018-02-10] MEDS: NYSTATIN 30 GM POWDER BTL TOP ×2 (09:19→21:01)
[2018-02-10] MEDS: ENOXAPARIN 40 MG/0.4 ML SYG SC (09:29)
[2018-02-10] MEDS: traMADol 50 MG TAB PO (21:02)
[2018-02-11] MEDS: FUROSEMIDE 40 MG TAB PO ×2 (05:39→17:30)
[2018-02-11] MEDS: AMIODARONE 200 MG TAB GTB ×2 (08:04→21:27)
[2018-02-11] MEDS: OLANZAPINE 5 MG TAB GTB (08:05)
[2018-02-11] MEDS: ASPIRIN (EC) 81 MG TAB PO (08:05)
[2018-02-11] MEDS: NYSTATIN 30 GM POWDER BTL TOP ×2 (08:05→21:27)
[2018-02-11] MEDS: SERTRALINE 100 MG TAB GTB (08:05)
[2018-02-11] MEDS: POTASSIUM CHLORIDE (SR) 20 MEQ TAB PO (08:05)
[2018-02-11] MEDS: ASCORBIC ACID 500 MG TAB GTB (08:05)
[2018-02-11] MEDS: DILTIAZEM (CD) 120 MG CAP PO (08:05)
[2018-02-11] MEDS: ENOXAPARIN 40 MG/0.4 ML SYG SC (08:08)
[2018-02-11] MEDS: NA PHOSPHATE/BIPHOS 133 ML ENEMA PR (17:58)
[2018-02-12] MEDS: FUROSEMIDE 40 MG TAB PO ×2 (06:04→17:22)
[2018-02-12] MEDS: OLANZAPINE 5 MG TAB GTB (08:25)
[2018-02-12] MEDS: DILTIAZEM (CD) 120 MG CAP PO (08:26)
[2018-02-12] MEDS: ASPIRIN (EC) 81 MG TAB PO (08:26)
[2018-02-12] MEDS: ASCORBIC ACID 500 MG TAB GTB (08:26)
[2018-02-12] MEDS: AMIODARONE 200 MG TAB GTB ×2 (08:26→22:10)
[2018-02-12] MEDS: NYSTATIN 30 GM POWDER BTL TOP ×2 (08:26→21:02)
[2018-02-12] MEDS: POTASSIUM CHLORIDE (SR) 20 MEQ TAB PO (08:26)
[2018-02-12] MEDS: ENOXAPARIN 40 MG/0.4 ML SYG SC (08:31)
[2018-02-12] MEDS: SERTRALINE 100 MG TAB GTB (09:35)
[2018-02-13] MEDS: FUROSEMIDE 40 MG TAB PO ×2 (05:51→18:06)
[2018-02-13 07:13] LABS: ANION GAP 9 (8-16); BLOOD UREA NITROGEN 23 mg/dl (7-20); CALCIUM 8.3 mg/dl (8.4-10.2); CARBON DIOXIDE 37 mmol/L (21-31); CHLORIDE 100 mmol/L (97-110); CREATININE 1.18 mg/dl (0.61-1.24); GLUCOSE 121 mg/dl (70-220); MAGNESIUM 2.3 mg/dl (1.7-2.5); POTASSIUM 4.3 mmol/L (3.5-5.1); SODIUM 142 mmol/L (135-144)
[2018-02-13] MEDS: ASCORBIC ACID 500 MG TAB GTB (09:29)
[2018-02-13] MEDS: ASPIRIN (EC) 81 MG TAB PO (09:30)
[2018-02-13] MEDS: POTASSIUM CHLORIDE (SR) 20 MEQ TAB PO (09:31)
[2018-02-13] MEDS: AMIODARONE 200 MG TAB GTB ×2 (09:31→22:07)
[2018-02-13] MEDS: SERTRALINE 100 MG TAB GTB (09:32)
[2018-02-13] MEDS: DILTIAZEM (CD) 120 MG CAP PO (09:32)
[2018-02-13] MEDS: OLANZAPINE 5 MG TAB GTB (09:32)
[2018-02-13] MEDS: NYSTATIN 30 GM POWDER BTL TOP ×2 (09:35→21:18)
[2018-02-13] MEDS: ENOXAPARIN 40 MG/0.4 ML SYG SC (09:50)
[2018-02-13] MEDS: NA PHOSPHATE/BIPHOS 133 ML ENEMA PR (13:42)
[2018-02-13] MEDS: traMADol 50 MG TAB PO (22:21)
[2018-02-13] MEDS: ACETAMINOPHEN 325 MG TAB PO (23:13)
[2018-02-14] MEDS: traMADol 50 MG TAB PO ×3 (00:38→20:46)
[2018-02-14] MEDS: FUROSEMIDE 40 MG TAB PO ×2 (05:44→17:55)
[2018-02-14] MEDS: DILTIAZEM (CD) 120 MG CAP PO (09:57)
[2018-02-14] MEDS: ASPIRIN (EC) 81 MG TAB PO (09:57)
[2018-02-14] MEDS: AMIODARONE 200 MG TAB GTB ×2 (09:57→20:46)
[2018-02-14] MEDS: POTASSIUM CHLORIDE (SR) 20 MEQ TAB PO (09:58)
[2018-02-14] MEDS: ASCORBIC ACID 500 MG TAB GTB (09:58)
[2018-02-14] MEDS: NYSTATIN 30 GM POWDER BTL TOP ×2 (09:59→20:46)
[2018-02-14] MEDS: OLANZAPINE 5 MG TAB GTB (09:59)
[2018-02-14] MEDS: SERTRALINE 100 MG TAB GTB (09:59)
[2018-02-14] MEDS: ENOXAPARIN 40 MG/0.4 ML SYG SC (10:16)
[2018-02-14] MEDS: [UNRECOGNIZED DRUG - REMARK] XX (21:31)
[2018-02-15] MEDS: FUROSEMIDE 40 MG TAB PO ×2 (05:55→18:17)
[2018-02-15] MEDS: OLANZAPINE 5 MG TAB GTB (09:25)
[2018-02-15] MEDS: AMIODARONE 200 MG TAB GTB ×2 (09:26→21:47)
[2018-02-15] MEDS: POTASSIUM CHLORIDE (SR) 20 MEQ TAB PO (09:26)
[2018-02-15] MEDS: ASCORBIC ACID 500 MG TAB GTB (09:26)
[2018-02-15] MEDS: SERTRALINE 100 MG TAB GTB (09:26)
[2018-02-15] MEDS: DILTIAZEM (CD) 120 MG CAP PO (09:26)
[2018-02-15] MEDS: ASPIRIN (EC) 81 MG TAB PO (09:26)
[2018-02-15] MEDS: NYSTATIN 30 GM POWDER BTL TOP ×2 (09:28→21:47)
[2018-02-15] MEDS: ENOXAPARIN 40 MG/0.4 ML SYG SC (09:28)
[2018-02-15] MEDS: traMADol 50 MG TAB PO (21:47)
[2018-02-16] MEDS: ACETAMINOPHEN 325 MG TAB PO (02:09)
[2018-02-16] MEDS: traMADol 50 MG TAB PO (04:37)
[2018-02-16] MEDS: FUROSEMIDE 40 MG TAB PO (06:38)
[2018-02-16] MEDS: LORAZEPAM 2 MG INJ IV (09:35)
== END 2018-02-16 10:00 | DRG 313 ==
LOC: TEL 11-11 23:06 → E/R 22:37 → ICU 11-05 01:40
PROC: 5A1955Z Respiratory Ventilation, Greater than 96 Consecutive Hours (ICD-10-PCS; principal; 2017-11-05)
DX: R07.89 Other chest pain (principal); J96.22 Acute and chronic respiratory failure with hypercapnia; I50.33 Acute on chronic diastolic (congestive) heart failure; J96.21 Acute and chronic respiratory failure with hypoxia; E66.2 Morbid (severe) obesity with alveolar hypoventilation; N17.9 Acute kidney failure, unspecified; E87.0 Hyperosmolality and hypernatremia; Z68.45 Body mass index [BMI] 70 or greater, adult; J95.03 Malfunction of tracheostomy stoma; Z99.11 Dependence on respirator [ventilator] status; I11.0 Hypertensive heart disease with heart failure; I48.0 Paroxysmal atrial fibrillation; N18.9 Chronic kidney disease, unspecified; E11.22 Type 2 diabetes mellitus with diabetic chronic kidney disease; E66.01 Morbid (severe) obesity due to excess calories; Z95.0 Presence of cardiac pacemaker; E03.9 Hypothyroidism, unspecified; G47.33 Obstructive sleep apnea (adult) (pediatric); I44.7 Left bundle-branch block, unspecified; M10.9 Gout, unspecified
CPT/HCPCS: 36415; 36600; 71045; 74018; 80048; 80053; 80061; 82550; 82553; 82803; 83036; 83605; 83735; 84100; 84436; 84439; 84443; 84484; 85025; 87040; 87070; 87075; 87081; 89220; 92507; 92610; 93005; 93306; 94002; 94003; 94640; 94664; 99285-25; J1120